=== PATIENT | female | born 1990 | race Asian ===

== ENCOUNTER 2020-10-19 15:00 | Emergency (ER) | payer OTHER, SELFPAY ==
[2020-10-19 15:25] VITALS: BP 135/92; PULSE 72; RESP 14; TEMP 36.9; O2SAT 99; BMI 24.9
--- NOTE | 2020-10-19 15:28 | DI.US.S_ITS ---
PROCEDURE: US OB <= 14 WEEKS FETUS INDICATIONS: BLEEDING 9 WEEKS OUTSIDE/PRIOR DATING DATA: Last menstrual period (LMP): 08/14/20 LMP-based estimated date of delivery (CLOVIS): 05/21/21 First dating scan (date and location): This study Estimated date of delivery (CLOVIS) from first dating scan: 06/14/21, +/-7 days. TECHNIQUE: Real-time scanning was performed of the fetus and maternal pelvic organs, with image documentation. Endovaginal scanning was also performed to better visualize the fetus and maternal ovaries. COMPARISON: None. FINDINGS: Embryo: Not seen, but a gestational sac-like structure is present, without visualized yolk sac. Measurement variability in dating: +/- 4 weeks by LMP, +/- 7 days by mean sac diameter (use before 6 weeks gestation if crown-rump length not able to be measured), +/- 5 days by crown-rump length (up to 8 weeks 6 days gestation), +/- 7 days by crown-rump length (up to 13 weeks 6 days gestation). Maternal organs: Ovaries normal for gestational status . Limited images through the kidneys demonstrate no hydronephrosis. IMPRESSION: A definite intrauterine gestation has not been documented by this study but what likely is a gestational sac is present at the upper fundal portion of the endometrial canal. Please correlate with quantitative beta HCG if clinically indicated. Alternatively, follow-up repeat 1st trimester ultrasound in 7-10 days would assist in establishing viability of the fetus if present. Dictated by: Aldair Jenkins M.D. on 10/19/2020 at 17:06 Approved by: Aldair Jenkins M.D. on 10/19/2020 at 17:09
[2020-10-19 15:57] LABS: Add Manual Diff / Slide Review NO; Basophils Absolute Auto 0 /uL (0-100); Basophils Percent Auto 0.3 % (0-2); Eosinophils Absolute Auto 100 /uL (0-450); Hematocrit 39.2 % (36-46); Lymphocytes Absolute Auto 1900 /uL (1100-4500); Lymphocytes Percent Auto 25.3 % (25-40); Mean Corpuscular HGB Conc 33.1 % (30-36); Mean Corpuscular Hemoglobin 27.1 PG (26-34); Mean Corpuscular Volume 81.7 fL (80-100); Monocytes Absolute Auto 500 /uL (0-900); Monocytes Percent Auto 7.2 % (3-14); Neutrophils Absolute Auto 4900 /uL (1500-7000); Neutrophils Percent Auto 66.2 % (50-75); Platelet Count 258 X10^3/uL (150-400); Red Cell Distribution Width 12.5 % (11.6-14.8); White Blood Cell Count 7.4 X10^3/uL (4.5-11.0)
--- NOTE | 2020-10-19 16:00 | ED.PREGNANCY ---
HPI - General Chief complaint: Vaginal Bleeding Stated complaint: 9 weeks , bleeding Time Seen by Provider: 10/19/20 15:52 Source: patient Mode of arrival: Ambulatory Limitations: no limitations History of Present Illness HPI Narrative: Patient is a 30-year-old female presenting with vaginal bleeding and cramping. She states that she is about 9 weeks . She has had some brown spotting off and on but today she had a gush of bright red and some cramping as well. She denies any significant pain now. No nausea or vomiting. No fevers. She is [place] and has yet to have her initial OB appointment MD Complaint: vaginal bleeding Pain Consistency: intermittent Patient : Yes Related Data Allergies Allergy/AdvReac Type Severity Reaction Status Date / Time No Known Drug Allergies Allergy Verified 10/19/20 15:29 Review of Systems Review of Systems Narrative: GENERAL: Denies chills, fatigue, malaise, fever, sweats, travel HEENT: Denies sinus pain, ear pain, sore throat, difficulty swallowing, neck pain RESPIRATORY: Denies dyspnea, cough, wheezing, hemoptysis, sputum. CARDIOVASCULAR: Denies chest pain, palpitations, orthopnea, edema GASTROINTESTINAL: Denies nausea, vomiting, abdominal pain, diarrhea, constipation, melena. : Denies dysuria, frequency, incontinence, hematuria, urinary retention, flank pain. STRETCHER HELPER: See HPI MUSCULOSKELETAL: Denies weakness, joint pain, or bony pain SKIN: No rash, no erythema, no pruritus NEUROLOGIC: Denies weakness, dizziness, headache, numbness, change in speech, confusion PSYCHIATRIC: No concerning psychosocial issues. 12 point review of systems is negative except for those stated above and HPI PMFSH - Past Medical History Medical history: Reports no medical history Surgical history: Reports no surgical history Patient : Yes Exam Initial Vital Signs Initial Vital Signs: Vital Signs Temperature 98.4 F 10/19/20 15:25 Pulse Rate 72 10/19/20 15:25 Respiratory Rate 14 10/19/20 15:25 Blood Pressure 135/92 H 10/19/20 15:25 Pulse Oximetry 99 10/19/20 15:25 GENERAL: Well-appearing, well-nourished and in no acute distress. HEENT: Head atraumatic,EOMI, pupils reactive, face symmetric, moist mucous membranes CARDIOVASCULAR: Regular rate and rhythm without murmurs, rubs or gallops. RESPIRATORY: Breath sounds equal bilaterally, no wheezes rales or rhonchi. ABDOMEN: Soft, nontender. Normoactive bowel sounds all 4 quadrants. No guarding or rebound. EXTREMITIES: Normal range of motion, no clubbing or edema. Neurovascularly intact NEUROLOGICAL: Alert and oriented x4.Normal gait and speech. Cranial nerves II through XII grossly intact. SKIN: Warm, dry, no laceration, no petechiae, no rashes or lesions. Course Orders Ordered: ED Orders 10/19/20 15:28 US OB <= 14 weeks fetus Stat 10/19/20 15:40 Urine Culture Stat Urine Microscopic Stat 10/19/20 15:45 ABO RH Type Stat Complete Blood Count AUTO DIFF Stat Comprehensive Metabolic Panel Stat HCG Quantitative /Beta subunit Stat Vital Signs Vital signs: Vital Signs - 8 hr 10/19/20 15:25 10/19/20 16:32 Temperature 98.4 F Pulse Rate 72 79 Respiratory Rate 14 18 Blood Pressure 135/92 H 110/70 Pulse Oximetry 99 100 MDM - OB/Uterine Contractions Lab Data Attestation: I reviewed the patient's lab results. Result diagrams: 10/19/20 15:45 10/19/20 15:45 Labs: Lab Results 10/19/20 10/19/20 10/19/20 Range/Units 15:40 15:45 15:45 WBC 7.4 (4.5-11.0) X10^3/uL RBC 4.80 (4.0-5.2) X10^6/uL Hgb 13.0 (12.0-16.0) g/dL Hct 39.2 (36-46) % MCV 81.7 (80-100) fL MCH 27.1 (26-34) PG MCHC 33.1 (30-36) % RDW 12.5 (11.6-14.8) % Plt Count 258 (150-400) X10^3/uL Neut % (Auto) 66.2 (50-75) % Lymph % (Auto) 25.3 (25-40) % Reagan % (Auto) 7.2 (3-14) % Eos % (Auto) 1.0 L (2-4) % Baso % (Auto) 0.3 (0-2) % Neut # (Auto) 4900 (8251-6708) /uL Lymph # (Auto) 1900 (7392-0071) /uL Reagan # (Auto) 500 (0-900) /uL Eos # (Auto) 100 (0-450) /uL Baso # (Auto) 0 (0-100) /uL Sodium 136 L (137-145) mmol/L Potassium 3.8 (3.4-5.1) mmol/L Chloride 104 (98-107) mmol/L Carbon Dioxide 27 (22-32) mmol/L BUN 10 (7-17) mg/dL Creatinine 0.61 (0.52-1.04) mg/dL Estimated GFR > 60.0 (>60) mL/min BUN/Creatinine Ratio 16.4 (6-22) Glucose 94 (70-100) mg/dL Calcium 9.7 (8.4-10.2) mg/dL Total Bilirubin 0.2 (0.2-1.3) mg/dL AST 37 H (14-36) IU/L ALT 61 H (<35) IU/L Alkaline Phosphatase 64 (38-126) U/L Total Protein 8.0 (6.3-8.2) g/dL Albumin 4.6 (3.5-5.0) g/dL Globulin 3.4 (1.7-4.1) g/dL Albumin/Globulin Ratio 1.4 (1.0-2.8) HCG, Quant 6486.4 mIU/mL Urine RBC 1-5/hpf (0-5/HPF) Urine WBC 5-10/hpf H (0-5/HPF) Ur Squamous Epith Cells 1-5 /hpf (0-5/HPF) Amorphous Sediment 2+ Urine Bacteria Few (2-10) H (None) Urine Mucus 1+ H (Negative) Ur Culture Indicated? Specimen cultured Blood Type 10/19/20 Range/Units 15:45 WBC (4.5-11.0) X10^3/uL RBC (4.0-5.2) X10^6/uL Hgb (12.0-16.0) g/dL Hct (36-46) % MCV (80-100) fL MCH (26-34) PG MCHC (30-36) % RDW (11.6-14.8) % Plt Count (150-400) X10^3/uL Neut % (Auto) (50-75) % Lymph % (Auto) (25-40) % Reagan % (Auto) (3-14) % Eos % (Auto) (2-4) % Baso % (Auto) (0-2) % Neut # (Auto) (4004-4316) /uL Lymph # (Auto) (6256-5166) /uL Reagan # (Auto) (0-900) /uL Eos # (Auto) (0-450) /uL Baso # (Auto) (0-100) /uL Sodium (137-145) mmol/L Potassium (3.4-5.1) mmol/L Chloride (98-107) mmol/L Carbon Dioxide (22-32) mmol/L BUN (7-17) mg/dL Creatinine (0.52-1.04) mg/dL Estimated GFR (>60) mL/min BUN/Creatinine Ratio (6-22) Glucose (70-100) mg/dL Calcium (8.4-10.2) mg/dL Total Bilirubin (0.2-1.3) mg/dL AST (14-36) IU/L ALT (<35) IU/L Alkaline Phosphatase (38-126) U/L Total Protein (6.3-8.2) g/dL Albumin (3.5-5.0) g/dL Globulin (1.7-4.1) g/dL Albumin/Globulin Ratio (1.0-2.8) HCG, Quant mIU/mL Urine RBC (0-5/HPF) Urine WBC (0-5/HPF) Ur Squamous Epith Cells (0-5/HPF) Amorphous Sediment Urine Bacteria (None) Urine Mucus (Negative) Ur Culture Indicated? Blood Type A Positive Urine Dip Bedside Urine Glucose Negative Bedside Urine Bilirubin - Negative Bedside Urine Ketone - Negative Urine Specific [place] 1.025 Bedside Urine Occult Blood +++ Bedside Urine pH 6.5 Bedside Urine Protein - Negative Bedside Urine Urobilinogen - Negative Bedside Urine Nitrite - Negative Bedside Urine Leukocytes ++ 125 Esterase Imaging Data US - STRETCHER HELPER: Radiologist's Impression: PROCEDURE: US OB <= 14 WEEKS FETUS INDICATIONS: BLEEDING 9 WEEKS OUTSIDE/PRIOR DATING DATA: Last menstrual period (LMP): 08/14/20 LMP-based estimated date of delivery (CLOVIS): 05/21/21 First dating scan (date and location): This study Estimated date of delivery (CLOVIS) from first dating scan: 06/14/21, +/-7 days. TECHNIQUE: Real-time scanning was performed of the fetus and maternal pelvic organs, with image documentation. Endovaginal scanning was also performed to better visualize the fetus and maternal ovaries. COMPARISON: None. FINDINGS: Embryo: Not seen, but a gestational sac-like structure is present, without visualized yolk sac. Measurement variability in dating: +/- 4 weeks by LMP, +/- 7 days by mean sac diameter (use before 6 weeks gestation if crown-rump length not able to be measured), +/- 5 days by crown-rump length (up to 8 weeks 6 days gestation), +/- 7 days by crown-rump length (up to 13 weeks 6 days gestation). Maternal organs: Ovaries normal for gestational status . Limited images through the kidneys demonstrate no hydronephrosis. IMPRESSION: A definite intrauterine gestation has not been documented by this study but what likely is a gestational sac is present at the upper fundal portion of the endometrial canal. Please correlate with quantitative beta HCG if clinically indicated. Alternatively, follow-up repeat 1st trimester ultrasound in 7-10 days would assist in establishing viability of the fetus if present. Dictated by: Aldair Jenkins M.D. on 10/19/2020 at 17:06 MDM Narrative Medical decision making narrative: Patient thinks she is 9 weeks last menstrual period was August 14. HCG is 6400 and gestational sac is clear present in the upper final portion of the endometrial canal but no yolk sac or her feet is detected which I would expect at 9 weeks. However patient states that her menstrual cycles are irregular so it is possible she is not as far along as she thinks. Nonetheless I strongly recommend follow-up in hCG and repeat [place] Discharge Plan Departure Patient Disposition: Home Clinical Impression: Threatened Instructions: DI for Threatened Activity Restrictions/Additional Instructions: HCG= 6486 *You have been diagnosed with threatened *What to do: Please have your hCG rechecked in 48 hours. It should be increasing. There is a chance that you are miscarrying. Her ultrasound did not show all what it needed to today. *Continue to take medications as directed Tylenol 650 mg every 4-6 hours if needed for [id number] pain *Follow up with your primary care provider in 2-3 days *Return to ER if you should have increasing pain, vaginal bleeding or any new, worsening or concerning symptoms Referrals: [facility] [Provider Group]
[2020-10-19 16:15] LABS: Alanine Aminotransferase 61 IU/L (<35); Albumin 4.6 g/dL (3.5-5.0); Albumin Globulin Ratio 1.4 (1.0-2.8); Alkaline Phosphatase 64 U/L (38-126); Aspartate Aminotransferase 37 IU/L (14-36); BUN Creatinine Ratio 16.4 (6-22); Bilirubin Total 0.2 mg/dL (0.2-1.3); Blood Urea Nitrogen 10 mg/dL (7-17); Calcium 9.7 mg/dL (8.4-10.2); Carbon Dioxide 27 mmol/L (22-32); Chloride 104 mmol/L (98-107); Estimated Glomerular Filt Rate > 60.0 mL/min (>60); Globulin 3.4 g/dL (1.7-4.1); Glucose 94 mg/dL (70-100); HEMOLYSIS < 15 (0-50); Potassium 3.8 mmol/L (3.4-5.1); Sodium 136 mmol/L (137-145)
[2020-10-19 16:24] LABS: Amorphous Sediment Urine 2+; Bacteria Urine Few (2-10); Culture Indicated Urine Specimen Cultured; Mucus Urine 1+ (Negative); RBC Urine 1-5/HPF (0-5/HPF); Squamous Epithelial Cell Urine 1-5 /HPF (0-5/HPF); WBC Urine 5-10/HPF (0-5/HPF)
[2020-10-19 16:32] VITALS: BP 110/70; PULSE 79; RESP 18; O2SAT 100
[2020-10-19 16:32] LABS: HCG Quantitative /Beta subunit 6486.4 mIU/mL
== END 2020-10-19 17:41 | disposition home or self-care (01) ==
PROVIDERS: Emergency Provider Emergency Medicine
DX: O20.0 Threatened abortion (principal); Z3A.09 9 weeks gestation of pregnancy
CPT/HCPCS: 36415; 76801; 76817; 80053; 81003; 81015; 84702; 85025; 86900; 86901; 87086; 99283; 99284

== ENCOUNTER 2020-10-21 11:05 | Emergency (ER) | payer OTHER, SELFPAY ==
[2020-10-21 11:11] VITALS: BP 129/78; PULSE 86; RESP 16; TEMP 36.6; O2SAT 100; BMI 24.9
[2020-10-21 12:14] LABS: Bacteria Urine None Seen
[2020-10-21 12:17] LABS: HCG Quantitative /Beta subunit 6250.9 mIU/mL
[2020-10-21 12:28] LABS: WBC Urine 0-1/HPF (0-5/HPF)
[2020-10-21 12:34] LABS: Culture Indicated Urine Cult Not Indicated; RBC Urine 1-5/HPF (0-5/HPF); Squamous Epithelial Cell Urine 1-5 /HPF (0-5/HPF)
[2020-10-21 13:11] VITALS: BP 120/84; PULSE 89; RESP 16; TEMP 37.2; O2SAT 98
--- NOTE | 2020-10-21 14:30 | ED_ITS ---
HPI - Recheck/Abnormal Lab/Rx <RENZO Rivera - Last Filed: 10/21/20 14:49> General Chief Complaint: Recheck/Abnormal Lab/Rx Stated Complaint: and advised to have HCG checked Time Seen by Provider: 10/21/20 11:07 Source: patient and family Mode of arrival: Ambulatory Limitations: no limitations History of Present Illness HPI narrative: The patient is a 30-year-old female nonsmoker with history of threatened who presents with her for chief complaint of wanting to have her lab work checked. She was seen and evaluated at this facility on 10/19/2020 AG 1 P 0 approximately 9 weeks who presents with a chief complaint of a gush of bright red blood. She had an ultrasound which was concerning for a lack of definite intrauterine gestation, likely a gestational sac present at the upper fundal portion of the endometrial canal. She was instructed to have a repeat beta-hCG done in 48 hours, which he did not have a primary care provider or place to do this so she came back to the emergency department. She states that she is having slight constant ?trickle of bleeding, fills a panty liner per day. Related Data Allergies Allergy/AdvReac Type Severity Reaction Status Date / Time No Known Drug Allergies Allergy Verified 10/21/20 11:13 Review of Systems <RENZO Rivera - Last Filed: 10/21/20 14:49> Review of Systems Narrative: GENERAL: Denies chills, fatigue, malaise, fever, sweats. HEENT: Denies sinus pain, ear pain, sore throat, difficulty swallowing, dizziness. RESPIRATORY: Denies dyspnea, cough, wheezing, hemoptysis, sputum. CARDIOVASCULAR: Denies chest pain, palpitations, orthopnea, edema, GASTROINTESTINAL: See HPI : See HPI MUSCULOSKELETAL: denies weakness, joint pain, or bony pain SKIN: Denies rash, skin lesions, or other NEUROLOGIC: Denies weakness, headache, numbness, change in speech, confusion, seizures, incoordination. PSYCHIATRIC: No concerning psychosocial issues. 12 point review of systems is negative except for those stated above Patient History <RENZO Rivera - Last Filed: 10/21/20 14:49> Social History Smoking Status: Unknown if ever smoked Smoking Status: Unknown if ever smoked alcohol intake frequency: holidays/special occasions only Substance Use Type: does not use Exam <RENZO Rivera - Last Filed: 10/21/20 14:49> Narrative Exam Narrative: GENERAL: This is a well-nourished, well-developed patient, in no acute distress with at bedside HEAD: Atraumatic. Normocephalic. No temporal or scalp tenderness. EYES: Pupils equal round and reactive. Extraocular motions intact. No scleral icterus. No injection or drainage. ENT: Nose without bleeding, purulent drainage or septal hematoma. Wearing a mask. Airway patent. NECK: Trachea midline. No JVD or lymphadenopathy. Supple, nontender, no meningeal signs. CARDIOVASCULAR: Regular rate and rhythm RESPIRATORY: Clear to auscultation. Breath sounds equal bilaterally. No wheezes, rales, or rhonchi. No cough. No increased respiratory effort. No accessory muscle use. GASTROINTESTINAL: Abdomen soft, non-tender, nondistended. No hepato- splenomegaly, or palpable masses. No guarding. Active bowel sounds all 4 quadrants EXTREMITIES: No clubbing, cyanosis, or edema. No joint tenderness, effusion, or edema noted. BACK: Nontender without deformity or crepitance. No flank tenderness. NEURO: AOx3. SKIN: No rash or erythema. Initial Vital Signs Initial Vital Signs: Vital Signs Temperature 97.8 F 10/21/20 11:11 Pulse Rate 86 10/21/20 11:11 Respiratory Rate 16 10/21/20 11:11 Blood Pressure 129/78 10/21/20 11:11 Pulse Oximetry 100 10/21/20 11:11 <Stephanie Newman MD - Last Filed: 10/21/20 15:33> Initial Vital Signs Initial Vital Signs: Vital Signs Temperature 97.8 F 10/21/20 11:11 Pulse Rate 86 10/21/20 11:11 Respiratory Rate 16 10/21/20 11:11 Blood Pressure 129/78 10/21/20 11:11 Pulse Oximetry 100 10/21/20 11:11 Scores <RENZO Rivera - Last Filed: 10/21/20 14:49> GCS Bulmaro coma scale eye opening: Spontaneous Bulmaro coma scale verbal response: Orientated Bulmaro coma scale motor response: Obey commands [place] coma scale total score: 15 Course <ERWIN Rivera- - Last Filed: 10/21/20 14:49> Orders Ordered: ED Orders 10/21/20 11:35 Beta HCG, Quant [HCG Quantitative /Beta subunit] Stat 10/21/20 12:01 Urine Microscopic Stat Vital Signs Vital signs: Vital Signs - 8 hr 10/21/20 11:11 10/21/20 13:11 Temperature 97.8 F 98.9 F Pulse Rate 86 89 Respiratory Rate 16 16 Blood Pressure 129/78 120/84 Pulse Oximetry 100 98 <Stephanie Newman MD - Last Filed: 10/21/20 15:33> Orders Ordered: ED Orders 10/21/20 11:35 Beta HCG, Quant [HCG Quantitative /Beta subunit] Stat 10/21/20 12:01 Urine Microscopic Stat Vital Signs Vital signs: Vital Signs - 8 hr 10/21/20 11:11 10/21/20 13:11 Temperature 97.8 F 98.9 F Pulse Rate 86 89 Respiratory Rate 16 16 Blood Pressure 129/78 120/84 Pulse Oximetry 100 98 MDM - Recheck/Abnormal Lab/Rx <MARGOT Rivera - Last Filed: 10/21/20 14:49> Lab Data Labs: Lab Results 10/21/20 10/21/20 Range/Units 11:35 12:01 HCG, Quant 6250.9 mIU/mL Urine RBC 1-5/hpf (0-5/HPF) Urine WBC 0-1/hpf (0-5/HPF) Ur Squamous Epith Cells 1-5 /hpf (0-5/HPF) Urine Bacteria None seen (None) Ur Culture Indicated? Cult not indicated Urine Dip Bedside Urine Glucose Negative Bedside Urine Bilirubin - Negative Bedside Urine Ketone - Negative Urine Specific [place] 1.015 Bedside Urine Occult Blood +++ Bedside Urine pH 6.0 Bedside Urine Protein - Negative Bedside Urine Urobilinogen - Negative Bedside Urine Nitrite - Negative Bedside Urine Leukocytes - Negative Esterase [facility] Narrative Medical decision making narrative: The patient is a 30-year-old female who presents requesting a repeat beta hCG as per recommendations 2 days ago. She does not appear systemically ill, does not have any pain throughout her stay in the ER or since her previous discharge. Her beta-hCG has slightly decreased from her lab 2 days ago. Discussed the case with Dr. Newman who refused her ultrasound from a few days ago. The patient is in no acute pain, not bleeding significantly. Discussed with the patient that this is not a viable at this time, especially given her decreasing beta HCG. We discussed the possibility of a blighted ovum, that is thought to be more of a possibility exam a decidual reaction as the patient is pain-free and in no acute distress. We discussed the importance of follow-up with her primary care provider in the next few days for further evaluation, strict return precautions the emergency department as per Dr newman's recommendations including but not limited to severe bleeding with lightheadedness, abdominal pain etcetera. Patient and state understanding of conversation, have no questions or concerns and are appreciative of the care today. They state understanding return precautions as well as follow-up care. <Stephanie Newman MD - Last Filed: 10/21/20 15:33> Lab Data Labs: Lab Results 10/21/20 10/21/20 Range/Units 11:35 12:01 HCG, Quant 6250.9 mIU/mL Urine RBC 1-5/hpf (0-5/HPF) Urine WBC 0-1/hpf (0-5/HPF) Ur Squamous Epith Cells 1-5 /hpf (0-5/HPF) Urine Bacteria None seen (None) Ur Culture Indicated? Cult not indicated Urine Dip Bedside Urine Glucose Negative Bedside Urine Bilirubin - Negative Bedside Urine Ketone - Negative Urine Specific [place] 1.015 Bedside Urine Occult Blood +++ Bedside Urine pH 6.0 Bedside Urine Protein - Negative Bedside Urine Urobilinogen - Negative Bedside Urine Nitrite - Negative Bedside Urine Leukocytes - Negative Esterase Discharge Plan Departure Patient Disposition: Home Clinical Impression: Miscarriage Instructions: Dealing With Miscarriage, DI for Miscarriage Activity Restrictions/Additional Instructions: Thank you for trusting us with your care today. As discussed, your hormone is decreasing. Your beta hCG went from a 6486.4 to 6250.9 over less than 48 hours. This correlates with a miscarriage. As discussed, please follow-up with primary care provider on Friday. Please come back to the emergency department for any acute concerns. This includes passing out, abdominal pain, fever with abdominal pain etcetera Referrals: [facility] [Provider Group] <Stephanie Newman MD - Last Filed: 10/21/20 15:33> Cosign ED Attending Cosignature Attestation: I was immediately available in the department for consultation throughout this patient's visit. I agree with documentation as above. Stephanie Newman MD
== END 2020-10-21 13:11 | disposition home or self-care (01) ==
PROVIDERS: Emergency Medicine; Emergency Provider Nurse Practitioner Family
DX: O03.9 Complete or unspecified spontaneous abortion without complication (principal)
CPT/HCPCS: 36415; 81003; 81015; 84702; 99283

== ENCOUNTER → 2021-01-04 10:36 | Outpatient (CLI) | payer OTHER, SELFPAY ==
[2021-01-04 11:57] LABS: HCG Quantitative /Beta subunit 997.4 mIU/mL
== END ==
PROVIDERS: Referring Provider Family Medicine; Visit Provider Family Medicine
DX: Z34.81 Encounter for supervision of other normal pregnancy, first trimester (principal)
CPT/HCPCS: 36415; 84702

== ENCOUNTER → 2021-01-06 10:17 | Outpatient (CLI) | payer OTHER, SELFPAY ==
[2021-01-06 13:13] LABS: HCG Quantitative /Beta subunit 1922.2 mIU/mL
== END ==
PROVIDERS: PCP Family Medicine; Referring Provider Family Medicine; Visit Provider Family Medicine
DX: Z34.81 Encounter for supervision of other normal pregnancy, first trimester (principal)
CPT/HCPCS: 36415; 84702

== ENCOUNTER → 2021-01-19 15:41 | Outpatient (CLI) | payer OTHER, SELFPAY ==
[2021-01-19 16:43] LABS: Add Manual Diff / Slide Review NO; Basophils Absolute Auto 0 /uL (0-100); Basophils Percent Auto 0.2 % (0-2); Eosinophils Absolute Auto 100 /uL (0-450); Eosinophils Percent Auto 0.6 % (2-4); Hematocrit 38.4 % (36-46); Hemoglobin 12.9 g/dL (12.0-16.0); Lymphocytes Absolute Auto 1900 /uL (1100-4500); Lymphocytes Percent Auto 20.4 % (25-40); Mean Corpuscular HGB Conc 33.5 % (30-36); Mean Corpuscular Hemoglobin 27.3 PG (26-34); Mean Corpuscular Volume 81.3 fL (80-100); Monocytes Absolute Auto 600 /uL (0-900); Monocytes Percent Auto 6.2 % (3-14); Neutrophils Absolute Auto 6700 /uL (1500-7000); Neutrophils Percent Auto 72.6 % (50-75); Platelet Count 249 X10^3/uL (150-400); Red Blood Cell Count 4.72 X10^6/uL (4.0-5.2); Red Cell Distribution Width 12.6 % (11.6-14.8); White Blood Cell Count 9.3 X10^3/uL (4.5-11.0)
[2021-01-19 16:51] LABS: Appearance Urine UA CLOUDY; Bilirubin Urine UA NEGATIVE (NEGATIVE); Color Urine UA YELLOW; Glucose Urine UA NEGATIVE (Negative); Ketones Urine UA NEGATIVE (NEGATIVE); Leukocyte Esterase Urine UA 3+ (NEGATIVE); Nitrite Urine UA NEGATIVE (Negative); Occult Blood Urine UA TRACE-LYSED (Negative); Protein Urine UA NEGATIVE (Negative); Urobilinogen Urine UA 0.2 E.U./dL (0.2)
[2021-01-19 17:27] LABS: pH Urine UA 6.5 (4.5-8.0)
[2021-01-19 17:32] LABS: Amorphous Sediment Urine 3+; Bacteria Urine Moderate (10-30); Culture Indicated Urine Cult Not Indicated; RBC Urine 5-10/HPF (0-5/HPF); Renal Epithelial Cells Urine 1-5/HPF (0-1/HPF); Squamous Epithelial Cell Urine 10-30 /HPF (0-5/HPF); WBC Urine 10-30/HPF (0-5/HPF)
[2021-01-19 18:11] LABS: Hepatitis B Surface Antigen NEGATIVE s/c (NEGATIVE)
[2021-01-19 18:29] LABS: HIV 1 & 2 Ab/Ag 4th Gen Combo NEGATIVE (NEGATIVE); Hep C Virus Ab w/Reflex Quant NEGATIVE s/c (NEGATIVE)
[2021-01-20 07:08] LABS: RPR Screen Non Reactive (Non Reactive)
[2021-01-20 08:08] LABS: Varicella IgG Antibody 3567 index (Immune >165)
== END ==
PROVIDERS: PCP Family Medicine; Referring Provider Family Medicine; Visit Provider Family Medicine
DX: Z34.81 Encounter for supervision of other normal pregnancy, first trimester (principal)
CPT/HCPCS: 36415; 80055; 81003; 81015; 86787; 86803; 86850; 86900; 86901; 87086; 87389

== ENCOUNTER 2021-01-24 01:06 | Emergency (ER) | payer OTHER, SELFPAY ==
--- NOTE | 2021-01-24 01:13 | DI.US.S_ITS ---
PROCEDURE: US OB <= 14 WEEKS FETUS INDICATIONS: BLEEDING OUTSIDE/PRIOR DATING DATA: Last menstrual period (LMP): Not available. LMP-based estimated date of delivery (CLOVIS): Not available. First dating scan (date and location): This study. Estimated date of delivery (CLOVIS) from first dating scan: 09/03/21. TECHNIQUE: Real-time scanning was performed of the fetus and maternal pelvic organs, with image documentation. Endovaginal scanning was also performed to better visualize the fetus and maternal ovaries. COMPARISON: [facility], , OB <= 14 WEEKS FETUS, 10/19/2020, 15:53. FINDINGS: Embryo: Rudy-rump length 1.8 cm correlates with a gestational age estimate of 8 weeks 2 days, +/-5 days. cardiac activity is observed at 168 beats per minute. There is a small subchorionic hemorrhage 1.7 x 1.9 x 2.4 cm adjacent to the gestational sac. Measurement variability in dating: +/- 4 weeks by LMP, +/- 7 days by mean sac diameter (use before 6 weeks gestation if crown-rump length not able to be measured), +/- 5 days by crown-rump length (up to 8 weeks 6 days gestation), +/- 7 days by crown-rump length (up to 13 weeks 6 days gestation). Maternal organs: Ovaries normal considering gestational status . IMPRESSION: Single living intrauterine gestation with delivery date projected to be centered on 09/03/21. Small adjacent subchorionic hemorrhage incidentally noted. Dictated by: Aldair Jenkins M.D. on 01/24/2021 at 8:18 Approved by: Aldair Jenkins M.D. on 01/24/2021 at 8:19
--- NOTE | 2021-01-24 01:14 | ED.GENADULT ---
HPI - General Adult General Chief complaint: Vaginal Bleeding Stated complaint: 7 weeks , bleeding Time Seen by Provider: 01/24/21 01:10 Source: patient Mode of arrival: Ambulatory Limitations: no limitations History of Present Illness HPI narrative: Patient is a Rh positive 30-year-old at approximately 7 weeks EGA with a known IUP noted in her OB providers note from a bedside ultrasound here for evaluation of vaginal bleeding. She states the symptoms started approximately 1 hour ago. She is not having any pain. No urinary symptoms. No change of bowel habits. No rashes. Related Data Home Medications Medication Instructions Recorded Confirmed acetaminophen 325 mg capsule 650 mg PO Q6H PRN 01/09/21 01/09/21 acyclovir 400 mg tablet 400 mg PO .PRN tab 01/09/21 01/09/21 doxylamine succinate 25 mg tablet 12.5 mg PO BEDTIME PRN tab 01/09/21 01/09/21 prenat.vits,chelita,jcb-abdq-cjcoo 1 tab PO DAILY 01/09/21 01/09/21 Allergies Allergy/AdvReac Type Severity Reaction Status Date / Time No Known Drug Allergies Allergy Verified 01/09/21 12:08 Review of Systems Constitutional Constitutional: Denies fatigue, Denies fever(s) and Denies headache(s) ENT Ears, Nose, Mouth, and Throat: Denies headache(s) Cardiovascular Cardiovascular: Denies chest pain and Denies dyspnea Respiratory Respiratory: Denies dyspnea Gastrointestinal Gastrointestinal: Denies abdominal pain, Denies nausea and Denies vomiting Genitourinary Comments: Vaginal bleeding Musculoskeletal Musculoskeletal: Denies arthralgias and Denies myalgias Integumentary/Breasts Skin/Breast: Denies rash Neurologic Neurologic: Denies behavioral changes and Denies headache(s) Psychiatric Psychiatric: Denies behavioral changes Endocrine Endocrine: Denies fatigue Hematologic/Lymphatic On Anticoagulants: No Allergic/Immunologic Allergic/Immunologic: Denies urticaria Patient History Medical History Acne Frequent headaches (~11/2020) Genital herpes (~2013) SAB (spontaneous ) (~10/21/20) Surgical History (Updated 01/09/21 @ 12:46 by Kelli Hairston RN) [place] teeth extracted (~2015) Family History (Updated 01/09/21 @ 12:44 by Kelli Hairston RN) Mother Diabetes mellitus Hypertension Hyperlipidemia Type 2 diabetes mellitus Acute rheumatoid arthritis Father Hypertension CVA (cerebral vascular accident) Grandmother No problems noted. 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 needs: No Smoking Status: Never smoker second hand exposure: No alcohol intake: former (pre- : weekends usually/only) substance use type: does not use Smoking Status: Never smoker alcohol intake frequency: holidays/special occasions only Substance Use Type: does not use Exam Initial Vital Signs Initial Vital Signs: Vital Signs Temperature 98.3 F 01/24/21 01:34 Pulse Rate 88 01/24/21 01:34 Respiratory Rate 20 01/24/21 01:34 Blood Pressure 92/56 L 01/24/21 01:34 Pulse Oximetry 98 01/24/21 01:34 Const General: cooperative and comfortable Limitations: mental status not altered HENMT Head: normal to inspection and normocephalic Resp Effort & Inspection: normal respiratory effort Cardio Rate: regular rate GI Inspection: non-distended Skin Lesions: no lesions Rashes: no rashes Neuro General: patient alert, patient awake and patient oriented x3 Cognition: normal cognition Speech: speech normal Extrem General: normal to inspection Psych Appearance: grossly normal and well kempt Course Orders Ordered: ED Orders 01/24/21 01:13 US OB <= 14 weeks fetus Stat 01/24/21 01:20 HCG Quantitative /Beta subunit Stat Vital Signs Vital signs: Vital Signs - 8 hr 01/24/21 01:34 Temperature 98.3 F Pulse Rate 88 Respiratory Rate 20 Blood Pressure 92/56 L Pulse Oximetry 98 Medical Decision Making Medical Records Medical records reviewed: Yes I reviewed the patient's medical records. Lab Data Lab results reviewed: Yes I reviewed the patient's lab results. Labs: Urine Dip Bedside Urine Glucose Negative Bedside Urine Bilirubin - Negative Bedside Urine Ketone - Negative Urine Specific [place] 1.005 Bedside Urine Occult Blood ++ Bedside Urine pH 6.5 Bedside Urine Protein - Negative Bedside Urine Urobilinogen - Negative Bedside Urine Nitrite - Negative Bedside Urine Leukocytes - Negative Esterase Point of care testing: Urine Dip Bedside Urine Glucose Negative Bedside Urine Bilirubin - Negative Bedside Urine Ketone - Negative Urine Specific [place] 1.005 Bedside Urine Occult Blood ++ Bedside Urine pH 6.5 Bedside Urine Protein - Negative Bedside Urine Urobilinogen - Negative Bedside Urine Nitrite - Negative Bedside Urine Leukocytes - Negative Esterase Imaging Data US - OB: Radiologist's Impression: Single live intrauterine with an estimated gestational age of 8 weeks 2 days. Inferior subchorionic hemorrhage. MDM Narrative Medical decision making narrative: Rh positive. Patient does have an IUP noted on ultrasound today. Patient is stable. The ultrasound does show subchorionic hemorrhage. Patient was given the information for the ultrasound. She was given return precautions and follow-up instructions. She expressed understanding and agreement. Discharge Plan Departure Patient Disposition: Home Clinical Impression: Miscarriage, threatened, early Instructions: DI for Vaginal Bleeding During Activity Restrictions/Additional Instructions: Your ultrasound today shows a single intrauterine with a fetus that has a heart rate of 168 beats per minute. This is all completely normal. Recommend that you keep all of your scheduled medical/OB appointments. Return to the emergency department for any new or worsening symptoms. Prescriptions: No Action prenat.vits,chelita,jsr-yqcc-mcvtg Tablet 1 tab PO DAILY RF: 0 acetaminophen [Tylenol] 325 mg capsule 650 mg PO Q6H PRNRF: 0 Unisom (doxylamine) 25 mg tablet 12.5 mg PO BEDTIME PRNRF: 0 acyclovir 400 mg tablet 400 mg PO .PRN RF: 0 Referrals: Anastasiia Roberto MD [Primary Care Provider] -
[2021-01-24 01:34] VITALS: BP 92/56; PULSE 88; RESP 20; TEMP 36.8; O2SAT 98; BMI 25.2
[2021-01-24 02:23] LABS: HCG Quantitative /Beta subunit 58984 mIU/mL
== END 2021-01-24 02:30 | disposition home or self-care (01) ==
PROVIDERS: Emergency Provider Emergency Medicine; PCP Family Medicine
DX: O20.0 Threatened abortion (principal); Z3A.01 Less than 8 weeks gestation of pregnancy
CPT/HCPCS: 76801; 76817; 81003; 84702; 99281; 99283

== ENCOUNTER → 2021-02-22 16:17 | Outpatient (CLI) | payer OTHER, SELFPAY | PROVIDERS: PCP Family Medicine; Referring Provider Family Medicine; Visit Provider Family Medicine | DX: Z34.01 Encounter for supervision of normal first pregnancy, first trimester (principal); Z3A.10 10 weeks gestation of pregnancy | CPT/HCPCS: 36415; 81420 ==

== ENCOUNTER → 2021-04-20 13:08 | Outpatient (CLI) | payer OTHER, SELFPAY ==
--- NOTE | 2021-04-20 13:09 | DI.US.S_ITS ---
PROCEDURE: US OB >= 14 WEEKS FETUS INDICATIONS: ANATOMY OUTSIDE/PRIOR DATING DATA: Last menstrual period (LMP): Unknown . LMP-based estimated date of delivery (CLOVIS): Not applicable . First dating scan (date and location): 01/05/2021 [facility] . Estimated date of delivery (CLOVIS) from first dating scan: 09/03/2021 TECHNIQUE: Real-time scanning was performed of the fetus, with image documentation and biometric measurements. COMPARISON: 10/19/2020. 01/24/2021.. FINDINGS: General: A single living intrauterine gestation is present. Presentation: Variable. Placenta: Placental position is posterior , without previa. Amniotic fluid index: 13.3 cm, normal range is 5-24 cm. heart rate: 147 beats per minute. Maternal cervical canal: 3.2 cm long. Normal lower limit is 2.5 cm. biometrics: Biparietal diameter: 4.8 cm. 20 weeks 3 days Head circumference: 17.8 cm. 20 weeks 2 days Abdominal circumference: 15.0 cm. 20 weeks 2 days Femur length: 3.2 cm. 19 weeks 6 days Estimated gestational age from initial scan: not applicable. Composite gestational age from present scan: 20 weeks 2 days Estimated weight and percentile: 334 grams. 23rd percentile. Measurement variability for biometric dating: +/- 7 days from 14 weeks to 15 weeks 6 days gestation, +/- 10 days from 16 weeks to 21 weeks 6 days gestation, +/- 2 weeks from 22 weeks to 27 weeks 6 days gestation, +/- 3 weeks for 28 weeks gestation or later. weight reference: 4500 g or EFW >90/95% is considered macrosomia or large for gestational age. EFW <10% is small for gestational age. EFW 5% or less is considered intra-uterine growth restriction. Anatomic survey: Neuro: Ventricles are non-dilated at less than 10 mm. Cisterna magna is normal at 3-11 mm. Cerebellum is normal in size and morphology. Nuchal skin fold: Normal at less than 6 mm between 14-21 weeks gestational age. Face: Nose and lips, facial profile are normal. Spine: No evidence for spina bifida. Heart: 4-chambered heart is present, with normal ventricular outflow tracts. Diaphragm: Diaphragm is intact. Stomach: A hyperechoic area seen within the abdomen inferior to the stomach and superior to the kidneys. Kidneys: No hydronephrosis. Normal is less than 5 mm in 2nd trimester, less than 7 mm in 3rd trimester. Cord: 3-vessel cord has orthotopic insertion. Bladder: Normal in size. Extremities: All 4 extremities identified. IMPRESSION: 1. Live intrauterine with a composite gestational age from present scan of 20 weeks 2 days. 2. EFW 334 grams. 23rd percentile. 3. Echogenic bowel is identified. This can be associated with aneuploidy, intra-amniotic bleeding, cystic fibrosis, CMV. Refer to tertiary care center for junior high school principal workup should be considered. All other anatomy is normal. Dictated by: Angel Bullock M.D. on 04/20/2021 at 16:08 Approved by: Angel Bullock M.D. on 04/20/2021 at 16:15
== END ==
PROVIDERS: PCP Family Medicine; Referring Provider Family Medicine; Visit Provider Family Medicine
DX: Z34.82 Encounter for supervision of other normal pregnancy, second trimester (principal); Z3A.20 20 weeks gestation of pregnancy
CPT/HCPCS: 76811

== ENCOUNTER → 2021-06-22 08:01 | Outpatient (CLI) | payer OTHER, SELFPAY ==
[2021-06-22 10:04] LABS: Add Manual Diff / Slide Review NO; Basophils Absolute Auto 0 /uL (0-100); Basophils Percent Auto 0.2 % (0-2); Eosinophils Absolute Auto 0 /uL (0-450); Eosinophils Percent Auto 0.7 % (2-4); Hemoglobin 12.2 g/dL (12.0-16.0); Lymphocytes Absolute Auto 1200 /uL (1100-4500); Lymphocytes Percent Auto 16.2 % (25-40); Mean Corpuscular HGB Conc 33.9 % (30-36); Mean Corpuscular Hemoglobin 28.3 PG (26-34); Mean Corpuscular Volume 83.5 fL (80-100); Monocytes Absolute Auto 300 /uL (0-900); Monocytes Percent Auto 4.2 % (3-14); Neutrophils Absolute Auto 5700 /uL (1500-7000); Neutrophils Percent Auto 78.7 % (50-75); Platelet Count 177 X10^3/uL (150-400); Red Blood Cell Count 4.31 X10^6/uL (4.0-5.2); Red Cell Distribution Width 13.4 % (11.6-14.8); White Blood Cell Count 7.2 X10^3/uL (4.5-11.0)
[2021-06-22 10:11] LABS: GTT (PREG) 1 Hour PP 50gm Dose 167 mg/dL (76-139)
== END ==
PROVIDERS: PCP Family Medicine; Referring Provider Family Medicine; Visit Provider Family Medicine
DX: Z34.90 Encounter for supervision of normal pregnancy, unspecified, unspecified trimester (principal)
CPT/HCPCS: 36415; 82950; 85025

== ENCOUNTER → 2021-06-29 07:05 | Outpatient (CLI) | payer OTHER, SELFPAY ==
[2021-06-29 08:56] LABS: Glucose Fasting Gestational 84 mg/dL (76-95)
[2021-06-29 10:27] LABS: Glucose Tol Interp,Gestational INTERPRETATION
[2021-06-29 11:00] LABS: Glucose 1 Hour Gest 183 mg/dL (76-180)
[2021-06-29 11:34] LABS: Glucose 3 Hour Gest 158 mg/dL (76-140)
[2021-06-29 11:37] LABS: Glucose 2 Hour Gest 103 mg/dL (76-155)
== END ==
PROVIDERS: PCP Family Medicine; Referring Provider Family Medicine; Visit Provider Family Medicine
DX: Z34.90 Encounter for supervision of normal pregnancy, unspecified, unspecified trimester (principal)
CPT/HCPCS: 36415; 82951; 82952

== ENCOUNTER → 2021-07-10 15:32 | Outpatient (CLI) | payer OTHER, SELFPAY ==
--- NOTE | 2021-07-11 10:18 | DIAB.GDA ---
Initial Gestational Diabetes Assessment Name: Steph Pham Date: 07/10/21 Time: 335-515p Dx: Gestational Diabetes Provider: Giuseppe CLOVIS: 09/06/21 Weeks: 31-32 Stehp presents today newly dx with GDM. Reports FH of DM with her maternal aunts, uncles, and grandmother. Reports aunt of diabetes related complications in 2018. Steph experienced a loss this past October. Her is currently deployed, she and her are both in the [place], and she has two dogs. Her [id number] plans to visit her in August (she is a retired OB nurse), and her mother visits weekly from [place]. Reports baseline knowledge about diabetes physiology and is checking BG as described below (SMBG). States she loves sweets, ie doughnuts, ice cream. Enjoys traditional north k[place] foods. 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 Recently increased to 1c after our phone conversation, which seems to be working well. Diet recall indicates low vegetable intake and previous to diagnosis some high carb dinners, ie 3c pasta or lasagna (90-135g CHO), rice with japanese yogurt (75g CHO). Also reports dessert in evening in small portions (20g CHO). States she would like to know more about nutrition and how GDm can impact her baby. She is having a boy. Anthropometrics: Ht: 64 Wt: 169# Prepregnancy wt: 150# Physical Activity: Limited by weather. When not raining, walks dogs for 60 mins. Difficulty thinking of physical activity she is open to during rainy weather. Self-Monitoring Blood Glucose: All readings within goal except one elevation after lunch when she had a 1/2 doughnut before her usual lunch. All pc readings are 2 hour, which is acceptable, however she is finding it difficult to stay awake for dinner pc reading. Asked that she discuss changing to 1 hour after dinner, as this is also acceptable, with her provider. Provider her the reccs on 1 hr (<140 mg/dL) and 2 hr (<120 mg/dL). If provider agrees, she could check 2 hours after breakfast and lunch, then switch to 1 hour for dinner to allow her to go to bed when desired. She seems amenable to this idea. Date Pre Post Pre Post Pre Post HS 07/04 82 79 84 99 07/05 81 99 84 90 07/06 82 88 91 87 07/07 73 85 88 113 07/08 80 107 85 116 07/09 81 87 124 83 07/10 78 78 95 Diabetes Medications: None Pertinent Labs: OGTT: 84, 183 H, 103, 158 H Nutrition Diagnosis: Altered nutrition related lab value r/t GDM dx aeb recent OGTT Nutrition and food related knowledge deficit r/t new GDM dx aeb diet recall and pt report Physical inactivity r/t weather changes aeb pt report Intervention: This participant was very receptive. Provided appropriate educational handouts. Discussed the following topics: GDM pathophysiology and impact of hyperglycemia on mom and baby Risk for T2DM for mom and baby in the future Ways to reduce risk T2DM Plate Method, meal timing, carb counting, pairing macronutrients and spreading out CHO for better BG management Blood glucose goals (FBG: <95 and 1 hour <140 mg/dL, 2 hour <120 mg/dL); importance of checking 4x per day (FBG and pc) Impact of macronutrients on blood glucose Recommended servings for carbohydrates at meals and snacks Brainstormed appropriate meal plan based on her food preferences Role of physical activity and following guidelines for safety Possible indoor physical activity on rainy days, including resistance bands or yoga Goals: Ask [place] about checking 1 hour after dinner BG- new Add protein to mid-morning snack- new Add vegetables to lunch and dinner - new Consider physical activity on rainy days, as discussed- new Follow-up: CHERIE TOLEDO follow-up in two weeks Thuy Fernandez RDN, [place] Certified Diabetes Care and Grant Specialist T: [phone] F: [phone] [email or web address] Thank you for this referral
== END ==
PROVIDERS: PCP Family Medicine; Referring Provider Family Medicine; Visit Provider Family Medicine
DX: O24.913 Unspecified diabetes mellitus in pregnancy, third trimester (principal); Z3A.31 31 weeks gestation of pregnancy; Z71.3 Dietary counseling and surveillance
CPT/HCPCS: G0108

== ENCOUNTER → 2021-07-25 14:04 | Outpatient (CLI) | payer OTHER, SELFPAY ==
--- NOTE | 2021-07-25 14:56 | DIAB.GDFU ---
Follow-up Gestational Diabetes Assessment Name: Steph Pham Date: 07/25/21 Time: 205-250p Dx: Gestational Diabetes Provider: Felisa CLOVIS: 09/06/21 Weeks: 34 tomorrow Steph presents today for follow-up for GDM. States she has been conscious of carb portions and BG. In fact, often gets nervous if BG is even 100-120 mg/dL 2 hours pc. Has increased vegetable intake as discussed last visit. Has added protein to morning snack, ie cheese. Has questions about lifestyle changes , T2 risk, and . States she is feeling hungry after breakfast. Some mornings she could add one more carb choice (ie small fruit). On cereal days, adding a protein would be best. Reports feeling worried her will not make it home for the of their son. He should be home between Aug 25-. MIL will be here to help (former OB RN) on Aug 21. She is feeling supported, but understandably wants her to be here. Plans to facetime him if he is unable to be home. Anthropometrics: Ht: 64 Wt: 173# Prepregnancy wt: 150# Physical Activity: Walking dog 1.5 mi x 4 days per week Self-Monitoring Blood Glucose: All readings in range. FB-82 mg/dL and pc: 73-114 mg/dL. Diabetes Medications: None Pertinent Labs: OGTT: 84, 183 H, 103, 158 H Nutrition Rx: Meal: 45-60g lunch and dinner; 30-45g breakfast Snack: 15-30g Intervention: This participant was very receptive. Provided appropriate educational handouts. Discussed the following topics: Recent blood sugar results and impact of food and hormones, getting enough nutrition and balancing BG, feelings around BG 100-120 mg/dL Review of macronutrient recommendations during and Benefits, resources, and nutrition for recommendations for nutrition and physical activity recommendations for T2DM risk reduction OGTT at 6-12 weeks Checking blood sugars twice per week (goal: fasting <100 mg/dL and 2 hour pc <140 mg/dL) until 6 week check-up HgA1c q 1-3 years and explanation of hgA1c Importance of support at home. Goals: Ask Felisa about checking 1 hour after dinner BG- met Add protein to mid-morning snack- met Add vegetables to lunch and dinner - met Consider physical activity on rainy days, as discussed- in progress Add a protein (or for some breakfast small fruit) to breakfast, as discussed- new Keep rice to 1c per meal- new recs: OGTT and HgA1c Follow-up: CHERIE TOLEDO follow-up prn. Provided her my card and encouraged her to call prn before or after baby arrives with any questions regarding GDM or T2 risk etc. She agreed to this plan. Thuy Fernandez RDN, FORMERLY NAMED [facility] Certified Diabetes Care and Brand Executive T: [phone] F: [phone] [email or web address] Thank you for this referral
== END ==
PROVIDERS: PCP Family Medicine; Referring Provider Family Medicine; Visit Provider Family Medicine
DX: O24.419 Gestational diabetes mellitus in pregnancy, unspecified control (principal); Z3A.33 33 weeks gestation of pregnancy; Z71.3 Dietary counseling and surveillance
CPT/HCPCS: G0108

== ENCOUNTER → 2021-08-14 16:17 | Outpatient (CLI) | payer OTHER, SELFPAY ==
[2021-08-15 12:43] LABS: Strep Grp B PCR NEG for Grp B Strep
== END ==
PROVIDERS: PCP Family Medicine; Referring Provider Family Medicine; Visit Provider Family Medicine
DX: Z34.90 Encounter for supervision of normal pregnancy, unspecified, unspecified trimester (principal); Z3A.36 36 weeks gestation of pregnancy
CPT/HCPCS: 87653

== ENCOUNTER 2021-08-24 15:43 | Inpatient (IN) | payer OTHER, SELFPAY ==
[2021-08-24 16:49] VITALS: BP 151/94; PULSE 118
[2021-08-24] MEDS: LABETALOL 20 MG/4 ML SYRINGE IV (16:49)
--- NOTE | 2021-08-24 16:58 | P.HPOB_ITS ---
OB HPI Date/Time Date of admission: 08/24/21 Date Patient Seen: 08/24/21 Time Patient Seen: 16:58 History of Present Condition Chief complaint: NST CLOVIS Calculator Estimated Delivery Date Method Current WG Current Estimate 09/06/21 Manual 38w 1d Final CLOVIS - DANIEL Other Estimates 09/01/21 LMP (Certain) 38w 6d 09/06/21 Ultrasound #1 38w 1d Estimated Gestational Age (weeks): 38w1d : 2 Para: 1 Narrative: Pt is a 30yo at 38w1d here for IOL due to gestational hypertension. Pt reports that at her dentist appt earlier today, her BP was in the 140s systolic. She also had a mild headache this morning, that ultimately resolved without intervention. She was noted to have significantly increased swelling in clinic, but the pt reports she hasn't really been paying attention to it. Her BP was elevated x 2 in clinic today, and then at admission to L&D was elevated to severe range. She denies any RUQ pain or vision changes. The pt has been feeling her baby move regularly. She is not having any contractions, vaginal bleeding, or LOF. The pts was also complicated by GDMA1. She had excellent control with diet alone, and had only a few isolated values above range. She was is also on acyclovir prophylaxis for hx of HSV without any recent lesions. care: good care, initiated at week # (7) and pounds weight gain (34) Dating criteria OB: based on 1st trimester US only Ultrasounds: normal 1st trimester US and abnormal US findings Abnormal ultrasound findings: Echogenic bowel on anatomy scan - repeat scan showed resolving. Obstetrical complications: gestational diabetes (A1) and gestational hypertension Medical complications OB: other (hx of HSV on acyclovir) Indications Indication for induction OB: gestational HTN/pre-eclampsia Preadmission Labs Last OB Lab Results: Blood Type A Positive 01/19/21 15:45 01/19/21 Antibody Screen Negative 01/19/21 15:45 01/19/21 Hematocrit 36.0 % (36-46) 06/22/21 08:03 06/22/21 Hemoglobin 12.2 g/dL (12.0-16.0) 06/22/21 08:03 06/22/21 Hepatitis B Surface Antigen Negative s/c (NEGATIVE) 01/19/21 15:45 01/19/21 Hepatitis C Antibody Negative s/c (NEGATIVE) 01/19/21 15:45 01/19/21 Rubella Antibody 157.0 IU/mL (>15) 01/19/21 15:45 01/19/21 Varicella-Zoster IgG Antibody 3567 index (Immune >165) 01/19/21 15:45 0 01/19/21 Glucose 1 Hour 167 mg/dL (76-139) H 06/22/21 08:03 06/22/21 Group B Streptococcus (PCR) Neg for grp b strep 08/14/21 16:17 08/14/21 Glucose Tolerance Testing: Fasting (84), 1 hr (83), 2 hr (103) and 3 hr (158) -: Chlamydia screen: negative, Gonorrhea screen: negative and Urine: negative -: PAP smear: Normal Genetic Screens: Cell-free DNA: Normal External Labs -: Urine: negative Prior (ies) Past Pregnancies Del. Date GA/Weeks Labor Lgth Wt Sex Route Outcome Anesthesia Place Delv Breastfeed Preg Comp Name 10/21/20 9 WA spontaneous Delivery Date: 10/21/20 Last Updated by: Kelli Hairston, R.N. *Rx Misoprostol. Evaluation Evaluation Baseline heart rate: 125 Variability: Moderate (11-25) monitor accelerations: Present Monitor Decelerations: Absent Status: Category l Dilation (cm): 2.5 Effacement (%): 50 Dilation: 1-2 cm Effacement: 40-50% station: -1 Position of cervix: anterior Consistency: soft [place] score: 8 PFSH Medical History Acne Frequent headaches (~11/2020) Genital herpes (~2013) SAB (spontaneous ) (~10/21/20) Surgical History (Updated 01/09/21 @ 12:46 by Kelli Hairston RN) [place] teeth extracted (~2015) Family History (Updated 01/09/21 @ 12:44 by Kelli Hairston RN) Mother Diabetes mellitus Hypertension Hyperlipidemia Type 2 diabetes mellitus Acute rheumatoid arthritis Father Hypertension CVA (cerebral vascular accident) Grandmother No problems noted. 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 Smoking Status: Never smoker second hand exposure: No alcohol intake: former (pre- : weekends usually/only) substance use type: does not use Meds Home Medications and Allergies Home Medications Medication Instructions Recorded Confirmed Type acetaminophen 325 mg capsule 650 mg PO Q6H PRN 01/09/21 01/09/21 History (Tylenol) acyclovir 400 mg tablet 400 mg PO .PRN tab 01/09/21 01/09/21 History doxylamine succinate 25 mg tablet 12.5 mg PO BEDTIME PRN tab 01/09/21 01/09/21 History (Unisom (doxylamine)) prenat.vits,chelita,rjc-monu-[id number] 1 tab PO DAILY 01/09/21 01/09/21 History blood sugar diagnostic (Blood #50 ea 07/02/21 Rx Glucose Test) blood-glucose meter (Blood Glucose #1 ea 07/02/21 Rx Monitoring) lancets (Accu-Chek Softclix #100 ea 07/02/21 Rx Lancets) acyclovir 400 mg tablet 400 mg PO TID #90 tab 08/07/21 08/07/21 Rx Allergies Allergy/AdvReac Type Severity Reaction Status Date / Time No Known Drug Allergies Allergy Verified 01/09/21 12:08 OB Exam Narrative Exam Narrative: Gen: NAD, laying comfortably in bed, appears well CV: RRR, no murmurs Resp: clear to auscultation bilaterally Abd: soft, nontender, gravid : normal external genitalia, fetus vertex Ext: 1+ edema bilaterally Neuro: No asterixis, 2+ patellar reflexes Objective Labs Result Diagrams: 08/24/21 16:38 08/24/21 16:38 Assessment and Plan Assessment and Plan Assessment and Plan narrative: 30yo at 38w1d here for IOL due to gestational hypertension. Pt with consistently elevated BPs up to and sustaining in the severe range for the past 1.5 hours, also with elevated BP more than 4 hours ago at the dentist office. Pt with increase in swelling and mild headache this morning, but not severe. No other severe symptoms. Lab work still pending. Based on gestational age and severity of elevation, recommend IOL today and pt consented. also complicated by GDMA1 with excellent blood sugar control. Pt with hx of HSV, on Acyclovir prophylaxis with no recent outbreaks. GBS negative, Rh positive. - Expectant management, anticipate - [place] store 8, start pitocin and titrate as tolerated - s/p single dose of IV Labetalol 20mg due to persistently elevated BPs to severe range. Continue to monitor closely. - Plan to start MgSO4 if BPs return to severe range - f/u pre-eclampsia/HELLP labs - GBS negative, no prophylaxis indicated - FHT reassuring - Epidural for pain control when desired
[2021-08-24 17:12] LABS: Add Manual Diff / Slide Review NO; Basophils Absolute Auto 0 /uL (0-100); Basophils Percent Auto 0.4 % (0-2); Eosinophils Absolute Auto 100 /uL (0-450); Eosinophils Percent Auto 0.7 % (2-4); Hemoglobin 11.9 g/dL (12.0-16.0); Lymphocytes Absolute Auto 1700 /uL (1100-4500); Lymphocytes Percent Auto 18.6 % (25-40); Mean Corpuscular HGB Conc 33.9 % (30-36); Mean Corpuscular Hemoglobin 28.1 PG (26-34); Mean Corpuscular Volume 82.9 fL (80-100); Monocytes Absolute Auto 800 /uL (0-900); Monocytes Percent Auto 9.4 % (3-14); Neutrophils Absolute Auto 6300 /uL (1500-7000); Neutrophils Percent Auto 70.9 % (50-75); Platelet Count 171 X10^3/uL (150-400); Red Blood Cell Count 4.22 X10^6/uL (4.0-5.2); Red Cell Distribution Width 13.7 % (11.6-14.8); White Blood Cell Count 8.9 X10^3/uL (4.5-11.0)
[2021-08-24] MEDS: OXYTOCIN PREMIX 30 UNIT/500 ML PLAST..BAG IV (17:19)
[2021-08-24] MEDS: LACTATED RINGERS 1,000 ML 100 ML IV (17:19)
[2021-08-24 17:23] LABS: INR 0.9 (0.9-1.3); Prothrombin Time 10.1 SECONDS (10.1-12.7)
[2021-08-24 17:26] LABS: PTT Partial Thromboplastin Tim 28 SECONDS (26.4-36.2)
[2021-08-24 17:27] LABS: COVID19 -Nasal RAPID Negative (Negative)
[2021-08-24 17:32] LABS: Alanine Aminotransferase 12 IU/L (<35); Albumin 3.9 g/dL (3.5-5.0); Albumin Globulin Ratio 1.3 (1.0-2.8); Alkaline Phosphatase 84 U/L (38-126); Aspartate Aminotransferase 20 IU/L (14-36); BUN Creatinine Ratio 7.9 (6-22); Bilirubin Total 0.3 mg/dL (0.2-1.3); Blood Urea Nitrogen 5 mg/dL (7-17); Calcium 9.6 mg/dL (8.4-10.2); Carbon Dioxide 25 mmol/L (22-32); Chloride 105 mmol/L (98-107); Estimated Glomerular Filt Rate > 60.0 mL/min (>60); Globulin 2.9 g/dL (1.7-4.1); Glucose 86 mg/dL (70-100); HEMOLYSIS < 15 (0-50); Potassium 3.7 mmol/L (3.4-5.1); Sodium 137 mmol/L (137-145); Total Protein 6.8 g/dL (6.3-8.2)
[2021-08-24 17:56] LABS: Creatinine Urine Random 48.4 mg/dL; Protein (Total) Urine Random 24 mg/dL (0-12); Protein Creatinine Ratio Urine 0.49 GRAM/24H
[2021-08-24 18:46] VITALS: BP 162/107
--- NOTE | 2021-08-24 22:35 | PM.OBPNLAB ---
Date/Time Date Patient Seen: 08/24/21 Time Patient Seen: 22:36 Pain Control Pain control: tolerating well Pelvic Exam Dilation (cm): 4 Effacement (%): 50 station: -1 Amniotic membrane status: Ruptured Comments: After informed consent, AROM performed with production of scant blood-tinged fluid. Contractions Pitocin rate (mU/min): 16 Contraction frequency (min): 3 Contraction duration (min): 1 Contraction pattern: Regular Status status: Category l Heart Rate Baseline: 120 Monitor Accelerations: Present Monitor Decelerations: Absent Monitor Variability: Moderate Assessment and Plan Comments: 30yo at 38w1d here for IOL due to gestational hypertension, diagnosed with pre-eclampsia after admission based on elevated protein/creatinine ratio. Pt with increase in swelling and mild headache this morning, but not severe.? No other severe symptoms.? No evidence of HELLP. BPs have remained in good range after single dose of IV Labetalol given at admission. also complicated by GDMA1 with excellent blood sugar control.? 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 GBS negative, Rh positive. Echogenic bowel noted on anatomy scan, improved on repeat scanning, with negative CMV and CF screening. AROM performed with production of no significant fluid to model and mold maker plaster clarity - head very well applied to cervix. Pt making gradual change on pitocin. - Expectant management, anticipate - Continue pitocin, titrate as tolerated - Continue to monitor BPs closely.? - Plan to start MgSO4 if BPs return to severe range - GBS negative, no prophylaxis indicated - FHT reassuring - Epidural for pain control when desired
[2021-08-25] MEDS: LACTATED RINGERS 1,000 ML 100 ML IV ×2 (01:11→04:24)
--- NOTE | 2021-08-25 09:19 | P.PNOB_ITS ---
Date/Time Date Patient Seen: 08/25/21 Time Patient Seen: 09:19 Pain Control Pain control: epidural Pelvic Exam Dilation (cm): 9 Effacement (%): 100 station: -1 Amniotic membrane status: Ruptured Contractions Pitocin rate (mU/min): 8 Contraction frequency (min): 2 Contraction pattern: Regular Status status: Category l Heart Rate Baseline: 150 Monitor Accelerations: Present Monitor Decelerations: Absent Monitor Variability: Moderate Assessment and Plan Comments: 30yo at 38w1d here for IOL due to gestational hypertension, diagnosed with pre-eclampsia after admission based on elevated protein/creatinine ratio.? No severe symptoms.? No evidence of HELLP.? BPs have remained in good range after single dose of IV Labetalol given at admission.? also complicated by GDMA1 with excellent blood sugar control.? 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 GBS negative, Rh positive.? Echogenic bowel noted on anatomy scan, improved on repeat scanning, with negative CMV and CF screening.? AROM performed with clear fluid approximately 11 hours ago. 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 Practice push unable to reduce remaining cervix. Baby with significant molding and caput present. - Expectant management, anticipate . Plan to recheck cervix in 1 hour with practice push again. If without any significant change, will begin discussion about possible need for . - Continue pitocin, titrate as tolerated - Continue to monitor BPs closely.? - Plan to start MgSO4 if BPs return to severe range - GBS negative, no prophylaxis indicated - FHT reassuring - Epidural in place for pain control
[2021-08-25] MEDS: FENT 2MCG/ML BUPIV 0.125% EPI 200 MCG/100 ML PLAST..BAG 8 MCG EPIDURAL (09:35)
[2021-08-25 09:46] VITALS: BP 163/98; PULSE 110
[2021-08-25] MEDS: LABETALOL 20 MG/4 ML SYRINGE IV (09:46)
--- NOTE | 2021-08-25 10:09 | PM.OBPNLAB ---
Date/Time Date Patient Seen: 08/25/21 Pain Control Pain control: tolerating well and epidural Pelvic Exam Dilation (cm): 9.5 Effacement (%): 100 station: +1 Amniotic membrane status: Ruptured Contractions Pitocin rate (mU/min): 8 Contraction frequency (min): 2 Contraction pattern: Regular Status status: Category l Heart Rate Baseline: 150 Monitor Accelerations: Present Monitor Decelerations: Absent Monitor Variability: Moderate Assessment and Plan Comments: 30yo at 38w1d here for IOL due to gestational hypertension, diagnosed with pre-eclampsia after admission based on elevated protein/creatinine ratio.? No severe symptoms.? No evidence of HELLP.? BPs now persistently elevated to severe range. S/P single dose 20mg IV Labetalol at admission, and additional dose now.? also complicated by GDMA1 with excellent blood sugar control.? 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 GBS negative, Rh positive.? Echogenic bowel noted on anatomy scan, improved on repeat scanning, with negative CMV and CF screening.? AROM performed with clear fluid approximately 11 hours ago. - Expectant management, anticipate .? Pt now with some cervical change, believe should be able to reduce cervical lip that remains that has mild swelling present. Will attempt to start pushing as pt is feeling increasing pressure. - Continue pitocin, titrate as tolerated - Continue to monitor BPs closely. Now consistently in severe range. - No significant response to 20mg IV Labetalol. 40mg IV Labetalol now. - Start 6g MgSO4 bolus, plan to run 2g/hr afterwards for at least 24 hours - Repeat CBC and CMP ordered - GBS negative, no prophylaxis indicated - FHT reassuring - Epidural in place for pain control
[2021-08-25 10:11] VITALS: BP 160/91; PULSE 103
[2021-08-25] MEDS: LABETALOL 20 MG/4 ML SYRINGE 40 MG IV (10:11)
[2021-08-25] MEDS: MAGNESIUM SULFATE IV (10:15)
[2021-08-25] MEDS: PIGGYBACK IV (10:15)
[2021-08-25] MEDS: MAGNESIUM SULFATE 20 GM/500 ML IV.SOLN IV ×2 (10:55→21:14)
--- NOTE | 2021-08-25 10:55 | PM.OBPNLAB ---
Date/Time Date Patient Seen: 08/25/21 Time Patient Seen: 10:56 Pain Control Pain control: epidural Pelvic Exam Dilation (cm): 10 Effacement (%): 100 station: +2 Amniotic membrane status: Ruptured Contractions Pitocin rate (mU/min): 8 Contraction frequency (min): 2 Contraction pattern: Regular Status status: Category ll Heart Rate Baseline: 165 Monitor Accelerations: Present Monitor Decelerations: Variable Monitor Variability: Moderate Assessment and Plan Comments: 30yo at 38w1d here for IOL due to gestational hypertension, diagnosed with pre-eclampsia after admission based on elevated protein/creatinine ratio.? No severe symptoms.? No evidence of HELLP.? s/p single dose 20mg IV Labetalol at admission. BPs to severe range today, now normalized after total of 60mg IV Labetalol, pt on MgSO4 as well.? also complicated by GDMA1 with excellent blood sugar control.? 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 GBS negative, Rh positive.? Echogenic bowel noted on anatomy scan, improved on repeat scanning, with negative CMV and CF screening.? AROM performed with clear fluid last night. Pt now with elevated temperature to 100.5F and 100.8F on repeat, and FHT baseline rising, now at 165. Will start treatment for chorioamnionitis now. - Expectant management, anticipate .? Pt now with some cervical change, believe should be able to reduce cervical lip that remains that has mild swelling present.? Will attempt to start pushing as pt is feeling increasing pressure. - Continue pitocin, titrate as tolerated - Continue to monitor BPs closely. - Continue MgSO4 at 2g/hr, s/p 6g/hr bolus, will continue for 24hrs - Repeat CBC and CMP ordered - GBS negative. ROM 13hrs. Now with signs of chorioamnionitis. Start Ampicillin and Gentamicin. - FHT overall reassuring with mild variables with pushing - Epidural in place for pain control
[2021-08-25] MEDS: AMPICILLIN 2,000 MG in SODIUM CHLORIDE 0.9% 100 ML 400 ML IV ×2 (11:12→19:21)
[2021-08-25] MEDS: miSOPROStoL 200 MCG TABLET 1000 MCG PR (11:57)
--- NOTE | 2021-08-25 12:19 | PM.OBPRVD ---
Events: Induced HTN Labor & Delivery Delivery date: 08/25/21 Intrapartal Events: Febrile, Severe Preeclampsia, Extended Tachycardia and Chorioamnionitis Induction method: per pitocin protocol Delivery augmentation: rupture of membranes Delivery monitor: external FHT Route of delivery: Episiotomy description: None L&D Laceration Description: Perineal - 1st Degree Delivery repair: chromic Estimated blood loss (mL): 600 Anesthesia Type: Epidural Narrative: PROCEDURE: at 38w1d presented for IOL for gestational hypertension and was admitted to Labor and Delivery. Immediately after admission, the pts blood pressures were in severe range but improved with one dose of 20mg IV Labetalol. Lab work ultimately returned showing pre-eclampsia but no HELLP. The patient progressed through the 1st stage over 15 hours. Pain was controlled with an epidural. While in labor, the pts blood pressures yaniv to severe range. She received a total of 60mg IV Labetalol and a 6g bolus of MgSO4 was given followed by 2g/hr. At the start of the 2nd stage of labor, prior to pushing, the pts temperature was noted to be elevated with rising FHT. Tmax was 100.8F. She was diagnosed with chorioamnionitis, and ampicillin and gentamicin were initiated. The patient progressed through the 2nd stage over 1 hour and delivered a viable male with APGARs 9/9 at 11:45am via . The cord was cut and clamped after it stopped pulsating. With gentle cord traction, the cord avulsed. However, the remaining cord was able to be grasped and the placenta delivered with gentle cord traction. The entire placenta was noted to be present. The perineum and vagina were inspected with right sided 1st degree perineal laceration that was bleeding profusely. This was repaired with 3-O Chromic with excellent hemostasis. The pt was also noted to have significant vaginal bleeding with poor fundal tone. Bimanual massage was completed with improvement in tone and removal of several clots. The pt was then given 1000mcg rectal cytotec, and her tone improved and maintained with appropriate vaginal bleeding. PREPROCEDURE DIAGNOSIS: Intrauterine at 38w2d Chorioamnionitis Pre-eclampsia with severe features GDMA1 Hx of HSV - no lesions at admission GBS negative RH positive POSTPROCEDURE DIAGNOSIS: Intrauterine at 38w2d, delivered Same as preprocedure hemorrhage Baby 1: gender: Male Presentation: vertex Position: Left Occiput Anterior Placenta delivery description: Spontaneous Cord Vessel Description: 3 Vessels score (1 min): 9 score (5 min): 9 weight: 6 lb 14.972 oz Plan for aftercare: Routine care and Other (continue MgSO4, ampicillin, and gentamicin for at least 24hrs , monitor BPs closely)
[2021-08-25 12:40] LABS: Add Manual Diff / Slide Review NO; Basophils Absolute Auto 100 /uL (0-100); Basophils Percent Auto 0.4 % (0-2); Eosinophils Absolute Auto 0 /uL (0-450); Hematocrit 34.8 % (36-46); Hemoglobin 11.7 g/dL (12.0-16.0); Lymphocytes Absolute Auto 800 /uL (1100-4500); Mean Corpuscular HGB Conc 33.7 % (30-36); Mean Corpuscular Hemoglobin 27.7 PG (26-34); Mean Corpuscular Volume 82.1 fL (80-100); Monocytes Absolute Auto 800 /uL (0-900); Monocytes Percent Auto 5.1 % (3-14); Neutrophils Absolute Auto 14600 /uL (1500-7000); Neutrophils Percent Auto 89.5 % (50-75); Platelet Count 160 X10^3/uL (150-400); Red Blood Cell Count 4.24 X10^6/uL (4.0-5.2); Red Cell Distribution Width 13.9 % (11.6-14.8); White Blood Cell Count 16.3 X10^3/uL (4.5-11.0)
[2021-08-25 12:42] VITALS: TEMP 37.6
[2021-08-25] MEDS: ACETAMINOPHEN 325 MG TABLET 650 MG PO ×2 (12:42→19:22)
[2021-08-25] MEDS: GENTAMICIN 330 MG in SODIUM CHLORIDE 0.9% 100 ML 108.25 ML IV (12:52)
[2021-08-25 12:55] LABS: Albumin 3.6 g/dL (3.5-5.0); Albumin Globulin Ratio 1.2 (1.0-2.8); Alkaline Phosphatase 88 U/L (38-126); Aspartate Aminotransferase 30 IU/L (14-36); BUN Creatinine Ratio 4.4 (6-22); Bilirubin Total 0.5 mg/dL (0.2-1.3); Blood Urea Nitrogen 3 mg/dL (7-17); Calcium 8.5 mg/dL (8.4-10.2); Carbon Dioxide 22 mmol/L (22-32); Chloride 103 mmol/L (98-107); Estimated Glomerular Filt Rate > 60.0 mL/min (>60); Globulin 2.9 g/dL (1.7-4.1); Glucose 110 mg/dL (70-100); HEMOLYSIS < 15 (0-50); Potassium 3.9 mmol/L (3.4-5.1); Sodium 135 mmol/L (137-145); Total Protein 6.5 g/dL (6.3-8.2)
[2021-08-25 13:01] LABS: Alanine Aminotransferase 18 IU/L (<35)
[2021-08-25 15:00] VITALS: TEMP 38.7
[2021-08-25] MEDS: IBUPROFEN 600 MG TABLET PO ×2 (15:00→21:14)
[2021-08-25 18:45] LABS: Magnesium 4.3 mg/dL (1.6-2.3)
[2021-08-26 00:52] LABS: Magnesium 4.9 mg/dL (1.6-2.3)
[2021-08-26] MEDS: AMPICILLIN 2,000 MG in SODIUM CHLORIDE 0.9% 100 ML 400 ML IV ×3 (01:35→13:47)
[2021-08-26] MEDS: ACETAMINOPHEN 325 MG TABLET 650 MG PO ×3 (01:36→21:42)
[2021-08-26 06:22] LABS: Add Manual Diff / Slide Review NO; Basophils Absolute Auto 0 /uL (0-100); Basophils Percent Auto 0.2 % (0-2); Eosinophils Absolute Auto 100 /uL (0-450); Eosinophils Percent Auto 0.7 % (2-4); Lymphocytes Absolute Auto 1300 /uL (1100-4500); Lymphocytes Percent Auto 10.5 % (25-40); Mean Corpuscular HGB Conc 33.4 % (30-36); Mean Corpuscular Hemoglobin 27.5 PG (26-34); Mean Corpuscular Volume 82.3 fL (80-100); Monocytes Absolute Auto 900 /uL (0-900); Monocytes Percent Auto 7.1 % (3-14); Neutrophils Absolute Auto 10200 /uL (1500-7000); Neutrophils Percent Auto 81.5 % (50-75); Platelet Count 150 X10^3/uL (150-400); Red Blood Cell Count 3.65 X10^6/uL (4.0-5.2); Red Cell Distribution Width 13.8 % (11.6-14.8); White Blood Cell Count 12.5 X10^3/uL (4.5-11.0)
[2021-08-26 06:24] LABS: Magnesium 4.8 mg/dL (1.6-2.3)
[2021-08-26] MEDS: MAGNESIUM SULFATE 20 GM/500 ML IV.SOLN IV (07:45)
[2021-08-26] MEDS: PRENATAL VIT,CALC/IRON/FOLIC 1 TABLET 1 TAB PO (09:00)
[2021-08-26] MEDS: FERROUS SULFATE 325 MG TABLET PO (09:00)
--- NOTE | 2021-08-26 10:36 | P.PNOB_ITS ---
Subjective - OB Subjective Date Patient Seen: 08/26/21 Time Patient Seen: 10:36 Interval history: Pt reports that she is overall feeling well. No headache, vision changes, RUQ pain, worsening swelling. She has been diuresing significantly on the MgSO4. Her lochia is appropriate. Her pain is well controlled. She continues to have a etienne in place and has not yet ambulated. Exam Narrative Exam Narrative: Gen: NAD, sitting comfortably in bed, appears well CV: RRR, no murmurs Resp: clear to auscultation bilaterally Abd: soft, appropriately tender, fundus firm and below the umbilicus, nondistended Ext: no edema Objective Labs Result Diagrams: 08/26/21 05:58 08/25/21 12:30 Labs: Laboratory Results - last 24 hr 08/25/21 08/25/21 08/25/21 12:30 12:30 18:05 WBC 16.3 H D RBC 4.24 Hgb 11.7 L Hct 34.8 L MCV 82.1 MCH 27.7 MCHC 33.7 RDW 13.9 Plt Count 160 Neut % (Auto) 89.5 H Lymph % (Auto) 5.0 L [place] % (Auto) 5.1 Eos % (Auto) 0.0 L Baso % (Auto) 0.4 Neut # (Auto) 59675 H Lymph # (Auto) 800 L [place] # (Auto) 800 Eos # (Auto) 0 Baso # (Auto) 100 Sodium 135 L Potassium 3.9 Chloride 103 Carbon Dioxide 22 BUN 3 L Creatinine 0.68 Estimated GFR > 60.0 BUN/Creatinine Ratio 4.4 L Glucose 110 H Calcium 8.5 Magnesium 4.3 H Total Bilirubin 0.5 AST 30 ALT 18 Alkaline Phosphatase 88 Total Protein 6.5 Albumin 3.6 Globulin 2.9 Albumin/Globulin Ratio 1.2 08/26/21 08/26/21 08/26/21 00:30 05:58 05:58 WBC 12.5 H RBC 3.65 L Hgb 10.0 L Hct 30.0 L MCV 82.3 MCH 27.5 MCHC 33.4 RDW 13.8 Plt Count 150 Neut % (Auto) 81.5 H Lymph % (Auto) 10.5 L [place] % (Auto) 7.1 Eos % (Auto) 0.7 L Baso % (Auto) 0.2 Neut # (Auto) 94997 H Lymph # (Auto) 1300 [place] # (Auto) 900 Eos # (Auto) 100 Baso # (Auto) 0 Sodium Potassium Chloride Carbon Dioxide BUN Creatinine Estimated GFR BUN/Creatinine Ratio Glucose Calcium Magnesium 4.9 H 4.8 H Total Bilirubin AST ALT Alkaline Phosphatase Total Protein Albumin Globulin Albumin/Globulin Ratio Assessment & Plan Plan Comments: 31yo PPD #1 s/p complicated by pre-eclampsia with severe features on MgSO4, chorioamnionitis, and hemorrhage. Pt now stable. BPs have remained < 150/100. Last temperature at 15:45 yesterday. Pt currently stable. Pre-eclampsia with severe features: BPs have remained out of treatment range - Continue to monitor BPs closely, plan on q4h vitals after MgSO4 stopped - Plan to d/c MgSO4 at delivery time of 11:45 Chorioamnionitis: - Continue Ampicillin, Gentamicin for 24hrs after last temperature, later today - Continue to monitor for fever closely hemorrhage: H/H with relatively minimal but appropriate drop, with acute blood loss anemia secondary to hemorrhage - Oral iron supplementation care: - Normal care - support Dispo: Plan on d/c tomorrow pending no additional complications and BPs remain in good range. Time Spent With Patient Time: Total time spent is greater than 50% in coordination of care (as documented) at patient's floor/unit and/or counseling patient: Time with patient: 15-24 minutes
[2021-08-26] MEDS: GENTAMICIN 330 MG in SODIUM CHLORIDE 0.9% 100 ML 108.25 ML IV (11:11)
[2021-08-26] MEDS: IBUPROFEN 600 MG TABLET PO (13:46)
[2021-08-26] MEDS: METOPROLOL IR 25 MG TABLET PO (21:43)
[2021-08-27] MEDS: ACETAMINOPHEN 325 MG TABLET 650 MG PO ×3 (08:26→21:16)
[2021-08-27] MEDS: IBUPROFEN 600 MG TABLET PO ×2 (08:26→14:38)
[2021-08-27] MEDS: FERROUS SULFATE 325 MG TABLET PO (08:27)
[2021-08-27] MEDS: PRENATAL VIT,CALC/IRON/FOLIC 1 TABLET 1 TAB PO (08:27)
[2021-08-27] MEDS: DOCUSATE 100 MG CAPSULE PO (08:27)
[2021-08-27 10:15] VITALS: BP 136/82
[2021-08-27] MEDS: LABETALOL 100 MG TABLET PO ×2 (10:15→13:54)
[2021-08-27 13:54] VITALS: BP 143/88; PULSE 73
--- NOTE | 2021-08-27 14:44 | PM.OBDS.1 ---
Discharge Providers Provider Date of admission: 08/24/21 15:43 Discharge Date: 08/27/21 Primary care physician: Anastasiia Roberto MD Consults: 08/26/21 12:17 Consult to Retail Marketing Coordinator Routine Comment: Discharge provider: Anastasiia Roberto MD Summary Hospital Course Date Patient Seen: 08/27/21 Time Patient Seen: 07:50 Diagnoses: 38w2d gestation GBS negative Rh positive GDMA1 Pre-eclampsia with severe features Chorioamnionitis hemorrhage Hx of HSV Hospital Course: The pt presented for IOL due to gestational hypertension, shown to be pre-eclampsia after admission labs returned. She received a single dose of IV Labetalol immediately at admission due to BPs elevated to severe range. She was started on pitocin. AROM was performed with clear fluid present. She received an epidural for pain control. The pts BPs then yaniv again to severe range, and she received additional doses of IV Labetalol and was also started on MgSO4. Her BPs responded well. Just as the pt reached the 2nd stage of labor, she developed a Tmax of 100.8F and FHT yaniv. She was diagnosed with chorioamnionitis and was started on ampicillin and gentamicin. She then had a spontaneous vaginal delivery of a viable baby boy. A first degree laceration was then repaired that was bleeding heavily. She had uterine atony that was controlled with bimanual massage and rectal cytotec. The pt tolerated delivery well. She was started on PO Labetalol. The MgSO4, Ampicillin, and Gentamicin were continued for 24hrs after delivery. PPD #1 the pts blood pressures yaniv again, however not to severe range. She was started on PO Labetalol. PPD #2 her BPs again were elevated above goal, and the Labetalol dosing was increased with good BP control. The pt was afebrile for 24hrs off antibiotics prior to discharge. She will f/u in 1 week for BP check in clinic. She is to continue checking her BP at home BID until then. Peripartum Data Infant Delivery Method: Natural Vaginal Laceration Description: Perineal - 1st Degree Episiotomy description: None Procedures: Spontaneous vaginal delivery complications: none 1: Gender: Male Disposition of : home Discharge Diagnosis (1) Severe pre-eclampsia: Status: Acute (2) Chorioamnionitis: Status: Acute (3) Gestational diabetes: Status: Acute (4) hemorrhage: Status: Acute Status at Discharge Cognitive/behavioral status at discharge: oriented Functional status at discharge: independent ambulation Overall status at discharge: patient is progressing back to baseline Time Spent with Patient Time attestation: Total time spent providing and/or coordinating discharge services: Time spent: Greater than 30 minutes Objective Labs Result Diagrams: 08/26/21 05:58 08/25/21 12:30 Exam Vital Signs (past 8 hours): - 08/27/21 10:15 08/27/21 13:54 Pulse Rate 73 Blood Pressure 136/82 143/88 H Narrative Exam Narrative: Gen: NAD, sitting comfortably in bed, appears well CV: RRR, no murmurs Resp: clear to auscultation bilaterally Abd: soft, appropriately tender, fundus firm and below the umbilicus, nondistended Ext: no edema Discharge Plan Discharge orders & Medications Discharge Orders: Discharge (Order); Ordered 08/27/21 Ordered By: Anastasiia Roberto Prescriptions: New labetalol 200 mg tablet 200 mg PO BID Qty: 60 2RF Continued prenat.vits,chelita,brp-hayo-adtls Tablet 1 tab PO DAILY 0RF acetaminophen [Tylenol] 325 mg capsule 650 mg PO Q6H PRN (Reason: Headache) 0RF acyclovir 400 mg tablet 400 mg PO .PRN 0RF Discontinued acyclovir 400 mg tablet 400 mg PO TID Qty: 90 2RF (DME) blood-glucose meter [Blood Glucose Monitoring] Kit See Rx Instructions .Route Qty: 1 0RF Rx Instructions: use to test blood glucose 4 times daily (DME) Blood Glucose Test Strip See Rx Instructions .Route Qty: 50 5RF Rx Instructions: use to test blood glucose 4 times daily (DME) lancets [Accu-Chek Softclix Lancets] Misc See Rx Instructions .Route Qty: 100 2RF Rx Instructions: use to test blood glucose 4 times daily Unisom (doxylamine) 25 mg tablet 12.5 mg PO BEDTIME PRN0RF Follow up/Referrals: Anastasiia Roberto MD [Primary Care Provider] - 09/03/21 12:15 pm Diet/Activity/Treatments Diet: Diet as Tolerated and Regular Skin/Wound/Dressing Care Report to your healthcare provider any signs of infection, such as:: chills, fever, increased pain and unusual drainage Visit Report/Discharge Packet Instructions: DI for Labor and Delivery, Vaginal Stand Alone Forms: Discharge: Care Visit Report Forms: Patient Portal/API, Stroke Signs & Symptoms Discharge Data Primary Care Provider: Anastasiia Roberto
[2021-08-27 17:17] VITALS: BP 155/92
[2021-08-27] MEDS: LABETALOL 100 MG TABLET 200 MG PO ×2 (17:17→21:15)
[2021-08-27 18:49] VITALS: BP 142/98; PULSE 73
[2021-08-27 19:02] LABS: Add Manual Diff / Slide Review NO; Basophils Absolute Auto 100 /uL (0-100); Basophils Percent Auto 0.9 % (0-2); Eosinophils Absolute Auto 300 /uL (0-450); Eosinophils Percent Auto 2.9 % (2-4); Hematocrit 30.1 % (36-46); Hemoglobin 10.2 g/dL (12.0-16.0); Lymphocytes Absolute Auto 1800 /uL (1100-4500); Lymphocytes Percent Auto 19.8 % (25-40); Mean Corpuscular HGB Conc 33.8 % (30-36); Mean Corpuscular Hemoglobin 27.9 PG (26-34); Mean Corpuscular Volume 82.4 fL (80-100); Monocytes Absolute Auto 400 /uL (0-900); Monocytes Percent Auto 4.7 % (3-14); Neutrophils Absolute Auto 6500 /uL (1500-7000); Neutrophils Percent Auto 71.7 % (50-75); Platelet Count 192 X10^3/uL (150-400); Red Blood Cell Count 3.65 X10^6/uL (4.0-5.2); Red Cell Distribution Width 13.9 % (11.6-14.8)
[2021-08-27 19:18] LABS: Alanine Aminotransferase 14 IU/L (<35); Albumin 3.5 g/dL (3.5-5.0); Albumin Globulin Ratio 1.1 (1.0-2.8); Alkaline Phosphatase 61 U/L (38-126); Aspartate Aminotransferase 29 IU/L (14-36); Bilirubin Total 0.2 mg/dL (0.2-1.3); Blood Urea Nitrogen 13 mg/dL (7-17); Calcium 10.6 mg/dL (8.4-10.2); Carbon Dioxide 27 mmol/L (22-32); Chloride 103 mmol/L (98-107); Estimated Glomerular Filt Rate > 60.0 mL/min (>60); Globulin 3.1 g/dL (1.7-4.1); Glucose 125 mg/dL (70-100); HEMOLYSIS < 15 (0-50); Sodium 137 mmol/L (137-145); Total Protein 6.6 g/dL (6.3-8.2)
[2021-08-27] MEDS: LANOLIN OINT 7 GM 1 APPLIC TOP (21:16)
[2021-08-28] VITALS (17 sets, daily range): BP systolic 117–161; BP diastolic 67–94; PULSE 75–106; TEMP 36.7–37.2
[2021-08-28] MEDS: DERMOPLAST SPRAY 20% 60 ML 1 SPRAY TOP (08:04)
[2021-08-28] MEDS: ACETAMINOPHEN 325 MG TABLET 650 MG PO ×2 (08:08→16:12)
[2021-08-28] MEDS: IBUPROFEN 600 MG TABLET PO ×2 (08:09→16:10)
[2021-08-28] MEDS: DOCUSATE 100 MG CAPSULE PO (08:34)
[2021-08-28] MEDS: FERROUS SULFATE 325 MG TABLET PO (08:34)
[2021-08-28] MEDS: PRENATAL VIT,CALC/IRON/FOLIC 1 TABLET 1 TAB PO (08:34)
[2021-08-28] MEDS: LABETALOL 100 MG TABLET 300 MG PO (08:35)
[2021-08-28] MEDS: NIFEdipine 30 MG TAB ER PO ×2 (08:36→11:25)
[2021-08-28 10:31] LABS: Add Manual Diff / Slide Review NO; Basophils Absolute Auto 100 /uL (0-100); Basophils Percent Auto 1.3 % (0-2); Eosinophils Absolute Auto 300 /uL (0-450); Eosinophils Percent Auto 4.4 % (2-4); Hematocrit 27.3 % (36-46); Hemoglobin 9.5 g/dL (12.0-16.0); Lymphocytes Absolute Auto 1400 /uL (1100-4500); Lymphocytes Percent Auto 19.4 % (25-40); Mean Corpuscular HGB Conc 34.7 % (30-36); Mean Corpuscular Hemoglobin 28.3 PG (26-34); Mean Corpuscular Volume 81.4 fL (80-100); Monocytes Absolute Auto 500 /uL (0-900); Monocytes Percent Auto 7.6 % (3-14); Neutrophils Absolute Auto 4800 /uL (1500-7000); Neutrophils Percent Auto 67.3 % (50-75); Platelet Count 187 X10^3/uL (150-400); Red Blood Cell Count 3.36 X10^6/uL (4.0-5.2); White Blood Cell Count 7.1 X10^3/uL (4.5-11.0)
[2021-08-28 10:42] LABS: Alanine Aminotransferase 18 IU/L (<35); Albumin 3.3 g/dL (3.5-5.0); Albumin Globulin Ratio 1.2 (1.0-2.8); Alkaline Phosphatase 55 U/L (38-126); Aspartate Aminotransferase 31 IU/L (14-36); BUN Creatinine Ratio 17.2 (6-22); Bilirubin Total 0.2 mg/dL (0.2-1.3); Blood Urea Nitrogen 10 mg/dL (7-17); Carbon Dioxide 26 mmol/L (22-32); Chloride 105 mmol/L (98-107); Estimated Glomerular Filt Rate > 60.0 mL/min (>60); Globulin 2.7 g/dL (1.7-4.1); Glucose 96 mg/dL (70-100); HEMOLYSIS < 15 (0-50); Potassium 3.3 mmol/L (3.4-5.1); Sodium 138 mmol/L (137-145)
[2021-08-28] MEDS: POTASSIUM CHLORIDE 20 MEQ TAB 40 MEQ PO ×2 (11:25→17:20)
[2021-08-28] MEDS: LABETALOL 20 MG/4 ML SYRINGE IV (11:25)
[2021-08-28] MEDS: HYDRALAZINE 20 MG/ML VIAL 5 MG IV (13:39)
[2021-08-28] MEDS: LABETALOL 100 MG TABLET PO (13:49)
[2021-08-28] MEDS: HYDRALAZINE 20 MG/ML VIAL 10 MG IV (14:50)
--- NOTE | 2021-08-28 15:15 | PM.OBPN.1 ---
Subjective - OB Subjective Date Patient Seen: 08/28/21 Time Patient Seen: 08:00 Interval history: Pts BP yaniv yesterday again to > 150 systolic near to discharge. She was kept overnight for continued monitoring. PO Labetalol was increased to 300mg BID. This morning the pt denies any headache, vision changes, RUQ pain, or LE edema. She is feeling well. She has not been able to get much sleep, but otherwise has no concerns. She is anxious to return home. Exam Vital Signs (past 8 hours): - 08/28/21 08:08 08/28/21 08:09 08/28/21 08:35 Temperature 98.1 F 98.1 F Pulse Rate 75 Blood Pressure 154/94 H 08/28/21 09:05 08/28/21 11:25 08/28/21 13:39 Temperature Pulse Rate 84 79 Blood Pressure 161/88 H 155/94 H 146/89 H 08/28/21 13:49 08/28/21 14:21 Temperature Pulse Rate 79 87 Blood Pressure 146/89 H 143/87 H Narrative Exam Narrative: Gen: NAD, sitting comfortably in bed, appears well CV: RRR, no murmurs Resp: clear to auscultation bilaterally Abd: soft, appropriately tender, fundus firm and below the umbilicus, nondistended Ext: trace edema Objective Labs Result Diagrams: 08/28/21 10:20 08/28/21 10:20 Labs: Laboratory Results - last 24 hr 08/27/21 08/27/21 08/28/21 18:47 18:47 10:20 WBC 9.0 7.1 RBC 3.65 L 3.36 L Hgb 10.2 L 9.5 L Hct 30.1 L 27.3 L MCV 82.4 81.4 MCH 27.9 28.3 MCHC 33.8 34.7 RDW 13.9 14.0 Plt Count 192 187 Neut % (Auto) 71.7 67.3 Lymph % (Auto) 19.8 L 19.4 L [place] % (Auto) 4.7 7.6 Eos % (Auto) 2.9 4.4 H Baso % (Auto) 0.9 1.3 Neut # (Auto) 6500 4800 Lymph # (Auto) 1800 1400 [place] # (Auto) 400 500 Eos # (Auto) 300 300 Baso # (Auto) 100 100 Sodium 137 Potassium 3.0 L Chloride 103 Carbon Dioxide 27 BUN 13 Creatinine 0.62 Estimated GFR > 60.0 BUN/Creatinine Ratio 21.0 Glucose 125 H Calcium 10.6 H Total Bilirubin 0.2 AST 29 ALT 14 Alkaline Phosphatase 61 Total Protein 6.6 Albumin 3.5 Globulin 3.1 Albumin/Globulin Ratio 1.1 08/28/21 10:20 WBC RBC Hgb Hct MCV MCH MCHC RDW Plt Count Neut % (Auto) Lymph % (Auto) [place] % (Auto) Eos % (Auto) Baso % (Auto) Neut # (Auto) Lymph # (Auto) [place] # (Auto) Eos # (Auto) Baso # (Auto) Sodium 138 Potassium 3.3 L Chloride 105 Carbon Dioxide 26 BUN 10 Creatinine 0.58 Estimated GFR > 60.0 BUN/Creatinine Ratio 17.2 Glucose 96 Calcium 10.0 Total Bilirubin 0.2 AST 31 ALT 18 Alkaline Phosphatase 55 Total Protein 6.0 L Albumin 3.3 L Globulin 2.7 Albumin/Globulin Ratio 1.2 Assessment & Plan Assessment and Plan (1) Severe pre-eclampsia: Status: Acute (2) Chorioamnionitis: Status: Acute (3) Gestational diabetes: Status: Acute (4) hemorrhage: Status: Acute Plan Comments: 31yo PPD #3 s/p complicated by pre-eclampsia with severe features on MgSO4, chorioamnionitis, and hemorrhage. Pre-eclampsia with severe features:? BPs have been difficult to control. Not consistently elevated to severe range, however frequently > 150 systolic. Majority diastolic in the 90s. PO Labetalol increased to 300mg BID last night. This morning initiated 30mg XR Nifedipine. Additional doses of IV medication provided today in attempt to more promptly lower BP to acceptable range. Pt asymptomatic. Still no evidence of HELLP. - Increased to 60mg XR Nifedipine today, will continue daily - Increased to 400mg Labetalol BID, continue - Now s/p 20mg IV Labetalol - s/p total 15mg IV Hydralazine - Start 10mg PO Hydralazine q6hr -- BP down to acceptable range after addition of Hydralazine, will continue - Continue to monitor BPs closely, q4hrs Chorioamnionitis: Completed 24hr course of antibiotics after last fever. No evidence of return infection hemorrhage: - Oral iron supplementation care: - Normal care - support Dispo:? Pending stabilization of BPs and maintenance < 150/100. Time Spent With Patient Time: Total time spent is greater than 50% in coordination of care (as documented) at patient's floor/unit and/or counseling patient: Time with patient: Greater than 35 minutes
[2021-08-28] MEDS: HYDRALAZINE 10 MG TABLET PO (17:41)
[2021-08-28] MEDS: OXYCODONE IR 5 MG TABLET PO (20:37)
[2021-08-28] MEDS: LABETALOL 100 MG TABLET 400 MG PO (21:07)
[2021-08-28 22:01] LABS: HEMOLYSIS < 15 (0-50); Potassium 3.7 mmol/L (3.4-5.1)
[2021-08-29] MEDS: OXYCODONE IR 5 MG TABLET PO (02:06)
[2021-08-29] MEDS: IBUPROFEN 600 MG TABLET PO (02:07)
[2021-08-29] MEDS: ACETAMINOPHEN 325 MG TABLET 650 MG PO (02:07)
[2021-08-29] MEDS: FERROUS SULFATE 325 MG TABLET PO (09:17)
[2021-08-29] MEDS: DOCUSATE 100 MG CAPSULE PO (09:17)
[2021-08-29] MEDS: PRENATAL VIT,CALC/IRON/FOLIC 1 TABLET 1 TAB PO (09:18)
[2021-08-29 09:19] VITALS: BP 134/94
[2021-08-29] MEDS: NIFEdipine 30 MG TAB ER 60 MG PO (09:19)
[2021-08-29] MEDS: LABETALOL 100 MG TABLET 400 MG PO (09:19)
[2021-08-29 11:03] VITALS: BP 146/98
[2021-08-29] MEDS: HYDRALAZINE 10 MG TABLET PO (11:03)
[2021-08-29 11:17] VITALS: BP 146/98; PULSE 86; RESP 18; TEMP 37.2
[2021-08-29 11:29] LABS: Alanine Aminotransferase 21 IU/L (<35); Albumin 3.9 g/dL (3.5-5.0); Albumin Globulin Ratio 1.3 (1.0-2.8); Alkaline Phosphatase 64 U/L (38-126); Aspartate Aminotransferase 32 IU/L (14-36); BUN Creatinine Ratio 17.6 (6-22); Bilirubin Total 0.3 mg/dL (0.2-1.3); Blood Urea Nitrogen 12 mg/dL (7-17); Calcium 10.2 mg/dL (8.4-10.2); Carbon Dioxide 27 mmol/L (22-32); Chloride 101 mmol/L (98-107); Estimated Glomerular Filt Rate > 60.0 mL/min (>60); Glucose 84 mg/dL (70-100); HEMOLYSIS < 15 (0-50); Potassium 3.9 mmol/L (3.4-5.1); Sodium 136 mmol/L (137-145); Total Protein 6.9 g/dL (6.3-8.2)
--- NOTE | 2021-08-29 13:57 | PM.OBDS.1 ---
Discharge Providers Provider Date of admission: 08/24/21 15:43 Discharge Date: 08/29/21 Primary care physician: Anastasiia Roberto MD Consults: 08/26/21 12:17 Consult to Roentgenology Teacher Routine Comment: Discharge provider: Anastasiia Roberto MD Summary Hospital Course Date Patient Seen: 08/29/21 Time Patient Seen: 08:00 Diagnoses: 38w2d gestation GBS negative Rh positive GDMA1 Pre-eclampsia with severe features Chorioamnionitis hemorrhage Hx of HSV Hospital Course: The pt presented for IOL due to gestational hypertension, shown to be pre-eclampsia after admission labs returned.? She received a single dose of IV Labetalol immediately at admission due to BPs elevated to severe range.? She was started on pitocin.? AROM was performed with clear fluid present.? She received an epidural for pain control.? The pts BPs then yaniv again to severe range, and she received additional doses of IV Labetalol and was also started on MgSO4.? Her BPs responded well.? Just as the pt reached the 2nd stage of labor, she developed a Tmax of 100.8F and FHT yaniv.? She was diagnosed with chorioamnionitis and was started on ampicillin and gentamicin.? She then had a spontaneous vaginal delivery of a viable baby boy.? A first degree laceration was then repaired that was bleeding heavily.? She had uterine atony that was controlled with bimanual massage and rectal cytotec.? The pt tolerated delivery well.? The MgSO4, Ampicillin, and Gentamicin were continued for 24hrs after delivery.? PPD #1 the pts blood pressures yaniv again, however not to severe range.? She was started on PO Labetalol.? PPD #2 her BPs again were elevated above goal, and the Labetalol dosing was increased with good BP control.? The pt was afebrile for 24hrs off antibiotics, and they were discontinued. Prior to discharge on PPD #3, the pts BPs again yaniv. She received PO Nifedipine XR, total of 60mg throughout the day, and her Labetalol was increased to 400mg BID. She also received an additional 20mg of IV Labetalol and total of 15mg IV Hydralazine due to difficulty getting her BPs < 150 systolic. She was then started on PO Hydralazine. At the time of discharge, her BPs had been stable for nearly 24hrs. She will continue on Labetalol 400mg BID, Nifedipine 60mg XR daily, and Hydralazine 10mg TID at home. She will f/u in 5 days in clinic for a BP check. The pt remained asymptomatic, with labs in normal range. At the time of discharge, the pt was voiding, ambulating, and passing flatus without difficulty. Her lochia was decreasing appropriately. She was with good latch and some formula supplementation due to low supply. Her pain was well controlled. Peripartum Data Infant Delivery Method: Natural Vaginal Laceration Description: Perineal - 1st Degree Episiotomy description: None Procedures: Spontaneous vaginal delivery [place] 1: Gender: Male Disposition of : home Discharge Diagnosis (1) Severe pre-eclampsia: Status: Acute (2) Chorioamnionitis: Status: Acute (3) Gestational diabetes: Status: Acute (4) hemorrhage: Status: Acute Status at Discharge Cognitive/behavioral status at discharge: oriented Functional status at discharge: independent ambulation Overall status at discharge: patient is back to baseline Time Spent with Patient Time attestation: Total time spent providing and/or coordinating discharge services: Objective Labs Result Diagrams: 08/28/21 10:20 08/29/21 11:05 Labs: Laboratory Results - last 24 hr 08/28/21 08/29/21 21:50 11:05 Sodium 136 L Potassium 3.7 3.9 Chloride 101 Carbon Dioxide 27 BUN 12 Creatinine 0.68 Estimated GFR > 60.0 BUN/Creatinine Ratio 17.6 Glucose 84 Calcium 10.2 Total Bilirubin 0.3 AST 32 ALT 21 Alkaline Phosphatase 64 Total Protein 6.9 Albumin 3.9 Globulin 3.0 Albumin/Globulin Ratio 1.3 Exam Vital Signs (past 8 hours): - 08/29/21 09:19 08/29/21 11:03 08/29/21 11:17 Temperature 99.0 F Pulse Rate 86 Respiratory Rate 18 Blood Pressure 134/94 H 146/98 H 146/98 H Narrative Exam Narrative: Gen: NAD, sitting comfortably in bed, appears well CV: RRR, no murmurs Resp: clear to auscultation bilaterally Abd: soft, appropriately tender, fundus firm and below the umbilicus, nondistended Ext: no edema Discharge Plan Discharge Plan Patient Disposition: Home Discharge orders & Medications Prescriptions: New ferrous sulfate 325 mg (65 mg iron) Tablet 325 mg PO DAILY Qty: 30 0RF labetalol 100 mg Tablet 400 mg PO BID Qty: 60 2RF nifedipine 30 mg Tablet Extended Release 24hr 60 mg PO DAILY Qty: 30 2RF hydralazine 10 mg Tablet 10 mg PO Q8H Qty: 90 2RF Continued prenat.vits,chelita,atn-jlks-vcnuh Tablet 1 tab PO DAILY 0RF acetaminophen [Tylenol] 325 mg capsule 650 mg PO Q6H PRN (Reason: Headache) 0RF acyclovir 400 mg tablet 400 mg PO .PRN 0RF Discontinued acyclovir 400 mg tablet 400 mg PO TID Qty: 90 2RF (DME) blood-glucose meter [Blood Glucose Monitoring] Kit See Rx Instructions .Route Qty: 1 0RF Rx Instructions: use to test blood glucose 4 times daily (DME) Blood Glucose Test Strip See Rx Instructions .Route Qty: 50 5RF Rx Instructions: use to test blood glucose 4 times daily (DME) lancets [Accu-Chek Softclix Lancets] Misc See Rx Instructions .Route Qty: 100 2RF Rx Instructions: use to test blood glucose 4 times daily Unisom (doxylamine) 25 mg tablet 12.5 mg PO BEDTIME PRN0RF Follow up/Referrals: Anastasiia Roberto MD [Primary Care Provider] - 09/03/21 12:15 pm (Call [phone] with any questions or concerns) Diet/Activity/Treatments Diet: Diet as Tolerated and Regular Skin/Wound/Dressing Care Report to your healthcare provider any signs of infection, such as:: chills, fever, increased pain and unusual drainage Visit Report/Discharge Packet Instructions: DI for Labor and Delivery, Vaginal Stand Alone Forms: Discharge: Care Visit Report Forms: Patient Portal/API, Stroke Signs & Symptoms Discharge Data Primary Care Provider: Anastasiia Roberto
== END 2021-08-29 12:45 | disposition home or self-care (01) | DRG 805 ==
PROVIDERS: Admitting Provider Family Medicine; PCP Family Medicine; Referring Provider Family Medicine; Visit Provider Family Medicine
DX: O13.4 Gestational [pregnancy-induced] hypertension without significant proteinuria, complicating childbirth (principal); O41.1230 Chorioamnionitis, third trimester, not applicable or unspecified; Z37.0 Single live birth; O98.32 Other infections with a predominantly sexual mode of transmission complicating childbirth; D62 Acute posthemorrhagic anemia; O14.14 Severe pre-eclampsia complicating childbirth; O24.420 Gestational diabetes mellitus in childbirth, diet controlled; A60.9 Anogenital herpesviral infection, unspecified; O99.02 Anemia complicating childbirth; O76 Abnormality in fetal heart rate and rhythm complicating labor and delivery; Z3A.38 38 weeks gestation of pregnancy; Z20.822 Contact with and (suspected) exposure to COVID-19
CPT/HCPCS: 01967; 36415; 59050; 59400; 80053; 82570; 83735; 84132; 84156; 85025; 85610; 85730; 86850; 86900; 86901; 87635; C9803; G0379; J0290; J0360; J2590; J3475; S0191

== ENCOUNTER → 2023-07-08 10:39 | Outpatient (CLI) | payer OTHER, SELFPAY ==
[2023-07-08 11:14] LABS: Miscellaneous to LabCorp NATERA KIT
[2023-07-08 11:26] LABS: Add Manual Diff / Slide Review NO; Basophils Absolute Auto 0 /uL (0-100); Basophils Percent Auto 0.2 % (0-2); Eosinophils Absolute Auto 0 /uL (0-450); Eosinophils Percent Auto 0.5 % (2-4); Hematocrit 38.5 % (36-46); Hemoglobin 13.2 g/dL (12.0-16.0); Lymphocytes Absolute Auto 1800 /uL (1100-4500); Lymphocytes Percent Auto 21.9 % (25-40); Mean Corpuscular HGB Conc 34.3 % (30-36); Mean Corpuscular Volume 81.9 fL (80-100); Monocytes Absolute Auto 400 /uL (0-900); Monocytes Percent Auto 4.7 % (3-14); Neutrophils Absolute Auto 6100 /uL (1500-7000); Neutrophils Percent Auto 72.7 % (50-75); Platelet Count 236 X10^3/uL (150-400); Red Cell Distribution Width 12.9 % (11.6-14.8); White Blood Cell Count 8.4 X10^3/uL (4.5-11.0)
[2023-07-08 11:33] LABS: Hemoglobin A1C% w Est Avg Glu 4.9 % (4.0-6.0)
[2023-07-08 11:38] LABS: Appearance Urine UA CLEAR; Bilirubin Urine UA NEGATIVE (NEGATIVE); Color Urine UA YELLOW; Glucose Urine UA NEGATIVE (Negative); Ketones Urine UA NEGATIVE (NEGATIVE); Leukocyte Esterase Urine UA NEGATIVE (NEGATIVE); Nitrite Urine UA NEGATIVE (Negative); Occult Blood Urine UA NEGATIVE (Negative); Protein Urine UA NEGATIVE (Negative); Specific Gravity Urine UA 1.015 (1.000-1.035); Urobilinogen Urine UA 0.2 E.U./dL (0.2)
[2023-07-08 11:40] LABS: Alanine Aminotransferase 22 IU/L (<35); Albumin 4.2 g/dL (3.5-5.0); Albumin Globulin Ratio 1.2 (1.0-2.8); Alkaline Phosphatase 47 U/L (38-126); Aspartate Aminotransferase 23 IU/L (14-36); BUN Creatinine Ratio 17.4 (6-22); Bilirubin Total 0.3 mg/dL (0.2-1.3); Blood Urea Nitrogen 8 mg/dL (7-17); Calcium 9.9 mg/dL (8.4-10.2); Carbon Dioxide 22 mmol/L (22-32); Chloride 102 mmol/L (98-107); Estimated Glomerular Filt Rate > 60 mL/min (>60); Globulin 3.4 g/dL (1.7-4.1); Glucose 126 mg/dL (70-100); HEMOLYSIS < 15 (0-50); Sodium 133 mmol/L (137-145); Total Protein 7.6 g/dL (6.3-8.2)
[2023-07-08 12:04] LABS: Creatinine Urine Random 68.2 mg/dL; Protein (Total) Urine Random 13 mg/dL (0-12); Protein Creatinine Ratio Urine 0.19 GRAM/24H
[2023-07-08 12:11] LABS: Hepatitis B Surface Antigen NEGATIVE s/c (NEGATIVE)
[2023-07-08 12:22] LABS: HCG Quantitative /Beta subunit 119280 mIU/mL
[2023-07-08 12:31] LABS: Rubella Antibody IgG 96.1 IU/mL (>15)
[2023-07-08 12:52] LABS: HIV 1 & 2 Ab/Ag 4th Gen Combo NEGATIVE (NEGATIVE); Hep C Virus Ab w/Reflex Quant NEGATIVE s/c (NEGATIVE)
[2023-07-08 13:31] LABS: GTT (PREG) 1 Hour PP 50gm Dose 154 mg/dL (76-139)
[2023-07-09 05:24] LABS: RPR Screen Non Reactive (Non Reactive)
[2023-07-09 09:46] LABS: Varicella IgG Antibody 3135 index (Immune >165)
== END ==
PROVIDERS: Obstetrics & Gynecology; Referring Provider Family Medicine; Visit Provider Family Medicine
DX: O09.299 Supervision of pregnancy with other poor reproductive or obstetric history, unspecified trimester (principal); Z34.81 Encounter for supervision of other normal pregnancy, first trimester; Z34.90 Encounter for supervision of normal pregnancy, unspecified, unspecified trimester; Z86.32 Personal history of gestational diabetes; Z87.59 Personal history of other complications of pregnancy, childbirth and the puerperium; Z13.79 Encounter for other screening for genetic and chromosomal anomalies; Z3A.09 9 weeks gestation of pregnancy; Z31.438 Encounter for other genetic testing of female for procreative management
CPT/HCPCS: 36415; 80053; 80055; 81003; 82570; 82950; 83036; 84156; 84550; 84702; 86787; 86803; 86850; 86900; 86901; 87086; 87389

== ENCOUNTER → 2023-07-24 07:33 | Outpatient (CLI) | payer OTHER, SELFPAY ==
[2023-07-24 09:07] LABS: Glucose Fasting Gestational 87 mg/dL (76-95)
[2023-07-24 09:41] LABS: Glucose 1 Hour Gest 134 mg/dL (76-180)
[2023-07-24 10:56] LABS: Glucose 2 Hour Gest 170 mg/dL (76-155)
[2023-07-24 12:12] LABS: Glucose Tol Interp,Gestational INTERPRETATION
[2023-07-24 12:24] LABS: Glucose 3 Hour Gest 83 mg/dL (76-140)
== END ==
PROVIDERS: Referring Provider Family Medicine; Visit Provider Family Medicine
DX: O09.299 Supervision of pregnancy with other poor reproductive or obstetric history, unspecified trimester (principal); Z86.32 Personal history of gestational diabetes; Z34.90 Encounter for supervision of normal pregnancy, unspecified, unspecified trimester
CPT/HCPCS: 36415; 82951; 82952

== ENCOUNTER → 2023-09-18 08:28 | Outpatient (CLI) | payer OTHER, SELFPAY ==
--- NOTE | 2023-09-18 08:29 | DI.US.S_ITS ---
PROCEDURE: US OB >= 14 WEEKS FETUS INDICATIONS: ANATOMY OUTSIDE/PRIOR DATING DATA: Last menstrual period (LMP): 04/21/2023. LMP-based estimated date of delivery (CLOVIS): 01/26/2024. First dating scan (date and location): 07/01/2023. Estimated date of delivery (CLOVIS) from first dating scan: 02/04/2024. The calculations are made using the ultrasound CLOVIS of 02/04/2024. TECHNIQUE: Real-time scanning was performed of the fetus, with image documentation and biometric measurements. Endovaginal scanning: Not performed COMPARISON: [facility], OB >= 14 WEEKS FETUS, 04/20/2021, 13:31. FINDINGS: General: A single living intrauterine gestation is present. Presentation: Vertex. Placenta: Placental position is posterior , with previa. Amniotic fluid index: 10.8 cm, normal range is 5-24 cm. Single deepest vertical pocket is 2.9 cm. heart rate: 155 beats per minute. Maternal cervical canal: 3.5 cm long. Normal lower limit is 2.5 cm. biometrics: Biparietal diameter: 4.8 cm, 20 weeks 3 days Head circumference: 17.8 cm, 20 weeks 2 days Abdominal circumference: 14.9 cm, 20 weeks 1 day Femur length: 3.3 cm, 20 weeks 2 days Clinically estimated gestational age: 20 weeks 1 day Composite gestational age from present scan: 20 weeks 2 days Estimated weight and percentile: 343 g, 53rd percentile Anatomic survey: Neuro: Ventricles are non-dilated at less than 10 mm. Cisterna magna is normal at 3-11 mm. Cerebellum is normal in size and morphology. Nuchal skin fold: Normal at less than 6 mm between 14-21 weeks gestational age. Face: Nose and lips are normal, facial profile is not well seen. Spine: No evidence for spina bifida. Heart: 4-chambered heart is present, with normal ventricular outflow tracts. Diaphragm: Diaphragm is intact. Stomach: Left-sided stomach is present. Kidneys: No hydronephrosis. Normal is less than 5 mm in 2nd trimester, less than 7 mm in 3rd trimester. Cord: 3-vessel cord has orthotopic insertion. Bladder: Normal in size. Extremities: All 4 extremities identified. IMPRESSION: 1. Single live intrauterine consistent with 20 weeks and 2 days. 2. Placenta previa is present. Recommend attention on follow-up exams. 3. The facial profile is not well seen and can be reassessed on follow-up. Otherwise, normal anatomic survey. We strive to produce accurate, complete, and clear reports of imaging services. To assist us in improving patient care, this report was composed using standard report templates and voice recognition software. Therefore, it may contain abnormal punctuation, insertions and/or omissions. Occasional wrong-word or sound-alike substitutions may occur. Though we review the report and make efforts to correct it, we do recommend that the report be read carefully in proper context to recognize any text inaccuracies. Dictated by: Rick Pavon M.D. on 09/18/2023 at 12:31 Approved by: Rick Pavon M.D. on 09/18/2023 at 12:35
== END ==
PROVIDERS: Referring Provider Family Medicine; Visit Provider Family Medicine
DX: O44.02 Complete placenta previa NOS or without hemorrhage, second trimester (principal); Z3A.20 20 weeks gestation of pregnancy
CPT/HCPCS: 76811; 76817

== ENCOUNTER → 2023-10-17 07:28 | Outpatient (CLI) | payer OTHER, SELFPAY ==
--- NOTE | 2023-10-17 07:30 | DI.US.S_ITS ---
PROCEDURE: US OB FOLLOW UP INDICATIONS: FOLLOW UP PROFILE AND PLACENTA PREVIA OUTSIDE/PRIOR DATING DATA: Last menstrual period (LMP): 04/21/2023 LMP-based estimated date of delivery (CLOVIS): 01/26/2024 First dating scan (date and location): 07/01/2023 Estimated date of delivery (CLOVIS) from first dating scan: 02/04/2024 The calculations are made using the ultrasound CLOVIS of 02/04/2024. TECHNIQUE: Real-time scanning was performed of the fetus, with image documentation. Endovaginal scanning: Performed for better visualization of the cervix and lower placental margin. COMPARISON: [facility], US, OB >= 14 WEEKS FETUS, 09/18/2023, 8:36. FINDINGS: A single living intrauterine gestation is present. Presentation: Vertex Placenta: Placental position is posterior, without previa. Amniotic fluid index: 12.2 cm, normal range is 5-24 cm. Single deepest vertical pocket is 4.1 cm. heart rate: 143 beats per minute. Maternal cervical canal: 5.1 cm long. Normal lower limit is 2.5 cm. Estimated gestational age from initial scan: 24 weeks 2 days facial profile appears normal. IMPRESSION: 1. Single live intrauterine . 2. facial profile appears normal. 3. Placenta previa has resolved. 4. Amniotic fluid index is within normal limits. Approved by: Liban Joseph M.D. on 10/17/2023 at 10:38
[2023-10-17 11:03] LABS: Add Manual Diff / Slide Review NO; Basophils Absolute Auto 0 /uL (0-100); Basophils Percent Auto 0.2 % (0-2); Eosinophils Absolute Auto 100 /uL (0-450); Eosinophils Percent Auto 0.7 % (2-4); Hematocrit 33.8 % (36-46); Hemoglobin 11.5 g/dL (12.0-16.0); Lymphocytes Absolute Auto 1300 /uL (1100-4500); Lymphocytes Percent Auto 18.2 % (25-40); Mean Corpuscular HGB Conc 33.9 % (30-36); Mean Corpuscular Hemoglobin 28.3 PG (26-34); Mean Corpuscular Volume 83.3 fL (80-100); Monocytes Absolute Auto 600 /uL (0-900); Monocytes Percent Auto 7.5 % (3-14); Neutrophils Absolute Auto 5400 /uL (1500-7000); Neutrophils Percent Auto 73.4 % (50-75); Platelet Count 193 X10^3/uL (150-400); Red Blood Cell Count 4.06 X10^6/uL (4.0-5.2); Red Cell Distribution Width 13.5 % (11.6-14.8); White Blood Cell Count 7.4 X10^3/uL (4.5-11.0)
[2023-10-17 11:20] LABS: Alanine Aminotransferase 12 IU/L (<35); Albumin 3.9 g/dL (3.5-5.0); Albumin Globulin Ratio 1.2 (1.0-2.8); Alkaline Phosphatase 39 U/L (38-126); Aspartate Aminotransferase 17 IU/L (14-36); BUN Creatinine Ratio 11.1 (6-22); Bilirubin Total 0.3 mg/dL (0.2-1.3); Blood Urea Nitrogen 7 mg/dL (7-17); Calcium 10.5 mg/dL (8.4-10.2); Carbon Dioxide 26 mmol/L (22-32); Chloride 103 mmol/L (98-107); Estimated Glomerular Filt Rate > 60 mL/min (>60); Globulin 3.3 g/dL (1.7-4.1); Glucose 95 mg/dL (70-100); HEMOLYSIS < 15 (0-50); Potassium 4.2 mmol/L (3.4-5.1); Sodium 136 mmol/L (137-145); Total Protein 7.2 g/dL (6.3-8.2)
[2023-10-17 12:12] LABS: Creatinine Urine Random 27.1 mg/dL; Protein (Total) Urine Random 19 mg/dL (0-12)
== END ==
PROVIDERS: Referring Provider Family Medicine; Visit Provider Family Medicine
DX: O44.02 Complete placenta previa NOS or without hemorrhage, second trimester (principal); O09.292 Supervision of pregnancy with other poor reproductive or obstetric history, second trimester; Z86.32 Personal history of gestational diabetes; Z3A.24 24 weeks gestation of pregnancy
CPT/HCPCS: 36415; 76816; 76817; 80053; 82570; 84156; 85025

== ENCOUNTER 2023-10-22 10:57 | Outpatient (CLI) | payer OTHER, SELFPAY ==
--- NOTE | 2023-10-22 11:45 | P.TNLD_ITS ---
Visit Information Visit Information Date of evaluation: 10/22/23 Primary OB Provider: Anastasiia Roberto Comments/Additional reasons for admission: 33yo at 25w0d here due to new diagnosis of pre-eclampsia. Pt denies any ongoing headaches that aren't easily resolved with Tylenol, vision changes, RUQ pain, acutely worsening edema. She is feeling her baby move regularly. No LOF, vaginal bleeding, contractions. [facility] Medical History (Updated 10/22/23 @ 11:48 by Anastasiia Roberto MD) Irregular menstrual cycle (~2002) hemorrhage Gestational diabetes Chorioamnionitis Severe pre-eclampsia SAB (spontaneous ) (~10/21/20) Acne (~2002) Frequent headaches (~11/2020) Genital herpes (~2013) Surgical History (Updated 01/09/21 @ 12:46 by Kelli Hairston RN) [place] teeth extracted (~2015) Family History (Updated 08/01/23 @ 21:41 by Chana Montalvo) Mother Diabetes mellitus Hypertension Hyperlipidemia Type 2 diabetes mellitus Rheumatoid arthritis Father Hypertension CVA (cerebral vascular accident) Diabetes mellitus Hyperlipidemia Grandmother Diabetes mellitus Grandfather Cancer Lung cancer Heavy smoker Grandmother Cancer Colon cancer Grandfather Cancer Lung cancer Heavy smoker Brother Obesity Hypertension Rheumatoid arthritis Family/Other Diabetes mellitus Social History marital status: number of children: 1 household members: spouse and children lives independently: Yes caregiver/support person: Yes housing: house pets and animals: Yes (Dogs x 2) education level: college occupational status: employed 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 special donaldo needs: No travel history: recent seatbelt use: always helmet use: Yes water heater temp set < 120 deg: Yes working smoke detector in home: Yes fire extinguisher in home: Yes carbon monox detector in home: Yes firearms in home: No do you feel safe at home: Yes Smoking Status: Never smoker second hand exposure: No alcohol intake: former substance use type: does not use during the past year weight has: other well-balanced diet: about half the time daily servings fruits/ve-4 caffeine: Yes (AM cup coffee) Type(s) of exercise: none Evaluation Evaluation Baseline heart rate: 145 Variability: Moderate (11-25) monitor accelerations: Present Monitor Decelerations: Absent Category of Tracing: Reactive Diagnosis, Plan/Disposition Final Diagnosis (1) 25 weeks gestation of : Status: Acute (2) Preeclampsia: Status: Acute (3) Hx of pre-eclampsia in prior , currently : Status: Acute Plan/Disposition Plan: 33yo at 25w0d here for new diagnosis of pre-eclampsia. Labs drawn and pending, pr/cr elevated previously. Started on PO Labetalol from clinic today. Growth scan after NST. NST reactive. MFM referral previously placed. Will f/u in clinic in 1 week with BP log. OB Disposition: home
[2023-10-22 11:48] LABS: Add Manual Diff / Slide Review NO; Basophils Absolute Auto 0 /uL (0-100); Basophils Percent Auto 0.3 % (0-2); Eosinophils Absolute Auto 0 /uL (0-450); Eosinophils Percent Auto 0.6 % (2-4); Hematocrit 33.7 % (36-46); Hemoglobin 11.5 g/dL (12.0-16.0); Lymphocytes Absolute Auto 1300 /uL (1100-4500); Lymphocytes Percent Auto 19.8 % (25-40); Mean Corpuscular HGB Conc 34.1 % (30-36); Mean Corpuscular Hemoglobin 27.6 PG (26-34); Mean Corpuscular Volume 80.9 fL (80-100); Monocytes Absolute Auto 400 /uL (0-900); Monocytes Percent Auto 6.1 % (3-14); Neutrophils Absolute Auto 4900 /uL (1500-7000); Neutrophils Percent Auto 73.2 % (50-75); Platelet Count 195 X10^3/uL (150-400); Red Blood Cell Count 4.17 X10^6/uL (4.0-5.2); Red Cell Distribution Width 13.4 % (11.6-14.8); White Blood Cell Count 6.7 X10^3/uL (4.5-11.0)
--- NOTE | 2023-10-22 11:59 | DI.US.S_ITS ---
PROCEDURE: US OB LIMITED INDICATIONS: growth-preeclampsia OUTSIDE/PRIOR DATING DATA: Last menstrual period (LMP): 04/21/2023. LMP-based estimated date of delivery (CLOVIS): The 01/26/2020. First dating scan (date and location): 07/01/2023. Estimated date of delivery (CLOVIS) from first dating scan: 02/04/2024. The calculations are made using the ultrasound CLOVIS of 02/04/2024. TECHNIQUE: Real-time scanning was performed of the fetus, with image documentation. COMPARISON: [facility], OB >= 14 WEEKS FETUS, 09/18/2023, 8:36. [facility], OB FOLLOW UP, 10/17/2023, 7:42. FINDINGS: A single live intrauterine gestation is present. Presentation: Vertex. Placenta: Placental position is posterior, without previa. Amniotic fluid index: 12.4 cm, normal range is 5-24 cm. Single deepest vertical pocket is 3.7 cm. heart rate: 162 beats per minute. Maternal cervical canal: 3.6 cm long. Normal lower limit is 2.5 cm. Clinically estimated gestational age: 25 weeks 0 days Estimated gestational age from initial scan: 25 weeks 5 days Biometric measurements: Biparietal diameter: 6.2 cm equals 25 weeks 0 days Head circumference: 22.8 cm equals 24 weeks 5 days Abdominal circumference: 21.3 cm equals 25 weeks 6 days Femur length: 4.7 cm equals 25 weeks 6 days Estimated weight and percentile: 837 g, 70th percentile IMPRESSION: Normal interval growth. Normal BRANDT. Dictated by: Morgan Ellis M.D. on 10/22/2023 at 12:45 Approved by: Morgan Ellis M.D. on 10/22/2023 at 12:48
[2023-10-22 12:14] LABS: Alanine Aminotransferase 12 IU/L (<35); Albumin 3.8 g/dL (3.5-5.0); Albumin Globulin Ratio 1.3 (1.0-2.8); Alkaline Phosphatase 39 U/L (38-126); Aspartate Aminotransferase 18 IU/L (14-36); BUN Creatinine Ratio 13.2 (6-22); Bilirubin Total 0.3 mg/dL (0.2-1.3); Blood Urea Nitrogen 5 mg/dL (7-17); Calcium 9.9 mg/dL (8.4-10.2); Carbon Dioxide 18 mmol/L (22-32); Chloride 106 mmol/L (98-107); Estimated Glomerular Filt Rate > 60 mL/min (>60); Glucose 82 mg/dL (70-100); HEMOLYSIS < 15 (0-50); Potassium 3.7 mmol/L (3.4-5.1); Sodium 133 mmol/L (137-145); Total Protein 6.8 g/dL (6.3-8.2)
== END 2023-10-22 11:48 | disposition home or self-care (01) ==
LOC: LABOR 11:12 → OB 10-23 08:04
PROVIDERS: Referring Provider Family Medicine; Visit Provider Family Medicine
DX: O14.92 Unspecified pre-eclampsia, second trimester (principal); Z3A.25 25 weeks gestation of pregnancy
CPT/HCPCS: 59025; 76815; 80053; 85025; G0378; G0379

== ENCOUNTER → 2023-10-31 10:41 | Outpatient (CLI) | payer OTHER, SELFPAY ==
[2023-10-31 12:33] LABS: Add Manual Diff / Slide Review NO; Basophils Absolute Auto 0 /uL (0-100); Basophils Percent Auto 0.4 % (0-2); Eosinophils Absolute Auto 100 /uL (0-450); Eosinophils Percent Auto 1.3 % (2-4); Hematocrit 31.6 % (36-46); Lymphocytes Absolute Auto 1100 /uL (1100-4500); Lymphocytes Percent Auto 17.2 % (25-40); Mean Corpuscular HGB Conc 34.8 % (30-36); Mean Corpuscular Hemoglobin 28.7 PG (26-34); Mean Corpuscular Volume 82.5 fL (80-100); Monocytes Absolute Auto 500 /uL (0-900); Monocytes Percent Auto 7.8 % (3-14); Neutrophils Absolute Auto 4900 /uL (1500-7000); Neutrophils Percent Auto 73.3 % (50-75); Platelet Count 184 X10^3/uL (150-400); Red Blood Cell Count 3.83 X10^6/uL (4.0-5.2); Red Cell Distribution Width 13.7 % (11.6-14.8); White Blood Cell Count 6.6 X10^3/uL (4.5-11.0)
[2023-10-31 12:52] LABS: Alanine Aminotransferase 10 IU/L (<35); Albumin 3.8 g/dL (3.5-5.0); Albumin Globulin Ratio 1.2 (1.0-2.8); Alkaline Phosphatase 41 U/L (38-126); Aspartate Aminotransferase 17 IU/L (14-36); BUN Creatinine Ratio 9.1 (6-22); Bilirubin Total 0.3 mg/dL (0.2-1.3); Blood Urea Nitrogen 5 mg/dL (7-17); Calcium 10.2 mg/dL (8.4-10.2); Carbon Dioxide 25 mmol/L (22-32); Chloride 104 mmol/L (98-107); Estimated Glomerular Filt Rate > 60 mL/min (>60); Globulin 3.1 g/dL (1.7-4.1); Glucose 89 mg/dL (70-100); HEMOLYSIS < 15 (0-50); Potassium 3.5 mmol/L (3.4-5.1); Sodium 135 mmol/L (137-145); Total Protein 6.9 g/dL (6.3-8.2)
== END ==
PROVIDERS: Referring Provider Family Medicine; Visit Provider Family Medicine
DX: Z34.82 Encounter for supervision of other normal pregnancy, second trimester (principal); Z3A.26 26 weeks gestation of pregnancy
CPT/HCPCS: 36415; 80053; 85025

== ENCOUNTER → 2023-11-03 07:48 | Outpatient (CLI) | payer OTHER, SELFPAY ==
[2023-11-03 09:38] LABS: Glucose Fasting 84 mg/dL (70-100)
[2023-11-03 10:44] LABS: Glucose 1 Hour 183 mg/dL (70-170)
[2023-11-03 11:05] LABS: Glucose 2 Hour 173 mg/dL (70-140)
[2023-11-03 11:18] LABS: Glucose Tol Interpretation INTERPRETATION
[2023-11-03 12:24] LABS: Glucose 3 Hour 83 mg/dL (70-115)
== END ==
PROVIDERS: Referring Provider Family Medicine; Visit Provider Family Medicine
DX: O09.299 Supervision of pregnancy with other poor reproductive or obstetric history, unspecified trimester (principal); Z86.32 Personal history of gestational diabetes
CPT/HCPCS: 82951; 82952

== ENCOUNTER → 2023-11-11 08:52 | Outpatient (CLI) | payer OTHER, SELFPAY ==
--- NOTE | 2023-11-12 09:44 | DIAB.GDA ---
Initial Gestational Diabetes Assessment Name: Steph Pham Date: 11/11/23 Time: 905-950a Dx: Gestational Diabetes Provider: Felisa CLOVIS: 02/04/24 Weeks: 27-28 Steph presents today for initial GDM visit. She is familiar to this RD/CDCES as we worked together during her last in 2020. H/o GDM with 2020 . Son was born 6#15oz. Reports in range HgA1c 1 year after last . Current diet moderate to low in carb. Some meals/snacks low in protein. Measuring BP at home. Some high Na food choices, ie zero sugar gatorade. States BP at home often 130s over 80s. Tx with labetalol. PMH of preeclampsia. Working with . This she is having a girl! Plan for 37 week induction Diet Recall: 530a: coffee latte, two small chana rolls or one slice toast with nutells (30-45g CHO) 11a: 1/2c rice, pro and veg 5p: 1/2-1c rice with pro/veg sn: nothing or yoplait yogurt with keto granola (30g ) 730p: 2/3c ice cream (30g CHO) or popcorn (20-30g CHO) Beverages; 80oz water, zero sug gatorade. Anthropometrics: Ht: 64 Wt: 172# OB visit 10/31 Prepregnancy wt: 148# Physical Activity: walking 3-5x per week for 60 min Self-Monitoring Blood Glucose: No SMBG for review today. Reports checking FBG and 2 hour pc. States all FBG under 90 with one exceptio of 110mg/dl. All 2 hr pc under 120 with exception to one reading after noodles at 131 mg/dl. Diabetes Medications: None Pertinent Labs: screen 154 H (07/2023) OGTT: 87, 134, 170 H, 83 (07/2023) Repeat OGTT: 84, 183H, 173, 83 (10/2023) Nutrition Rx: Carbohydrates: Meal: 45-g lunch and 45-60g dinner; 30g breakfast Snack: 15-30g Nutrition Diagnosis: Altered nutrition related lab value r/t GDM dx aeb recent OGTT Inconsistent protein intake r/t nutrition knowledge deficit aeb pt report and diet recall Excessive simple carbohydrate intake r/t cravings aeb pt report and diet recall Intervention: This participant was very receptive. Provided appropriate educational handouts. Discussed the following topics: Brief GDM pathophysiology and impact of hyperglycemia on mom and baby review Risk for T2DM for mom and baby in the future review Ways to reduce risk T2DM Plate Method, meal timing, carb counting, pairing macronutrients and spreading out CHO for better BG management Blood glucose goals (FBG: <95 and 2 hour <120 mg/dL); importance of checking 4x per day (FBG and pc) Impact of macronutrients on blood glucose Recommended servings for carbohydrates at meals and snacks Yogurt options with lower sugar and higher pro Brainstormed appropriate meal plan based on her food preferences Role of physical activity and following provider guidelines for safety Goals: Add protein to meals/snacks consistently Add 1p pro snack Switch yogurt option Bring BG next visit Follow-up: CHERIE TOLEDO follow-up in two weeks 1:1 and one week BG check over messaging Thuy Fernandez RDN, [place] Certified Diabetes Care and Pilot Plant Technician T: [phone] F: [phone] [email or web address] Thank you for this referral
== END ==
PROVIDERS: Referring Provider Family Medicine; Visit Provider Family Medicine
DX: O24.419 Gestational diabetes mellitus in pregnancy, unspecified control (principal); Z3A.27 27 weeks gestation of pregnancy; Z71.3 Dietary counseling and surveillance
CPT/HCPCS: 97802

== ENCOUNTER → 2023-11-14 10:18 | Outpatient (CLI) | payer OTHER, SELFPAY ==
[2023-11-14 11:40] LABS: Add Manual Diff / Slide Review NO; Basophils Absolute Auto 0 /uL (0-100); Basophils Percent Auto 0.3 % (0-2); Eosinophils Absolute Auto 100 /uL (0-450); Hematocrit 33.6 % (36-46); Hemoglobin 11.6 g/dL (12.0-16.0); Lymphocytes Absolute Auto 1700 /uL (1100-4500); Lymphocytes Percent Auto 21.8 % (25-40); Mean Corpuscular HGB Conc 34.6 % (30-36); Mean Corpuscular Hemoglobin 28.2 PG (26-34); Mean Corpuscular Volume 81.6 fL (80-100); Monocytes Absolute Auto 600 /uL (0-900); Monocytes Percent Auto 7.7 % (3-14); Neutrophils Absolute Auto 5300 /uL (1500-7000); Neutrophils Percent Auto 69.2 % (50-75); Platelet Count 193 X10^3/uL (150-400); Red Blood Cell Count 4.12 X10^6/uL (4.0-5.2); Red Cell Distribution Width 13.6 % (11.6-14.8); White Blood Cell Count 7.6 X10^3/uL (4.5-11.0)
[2023-11-14 11:58] LABS: Alanine Aminotransferase 10 IU/L (<35); Albumin 4.1 g/dL (3.5-5.0); Albumin Globulin Ratio 1.4 (1.0-2.8); Alkaline Phosphatase 46 U/L (38-126); Aspartate Aminotransferase 16 IU/L (14-36); Bilirubin Total 0.5 mg/dL (0.2-1.3); Blood Urea Nitrogen 6 mg/dL (7-17); Calcium 9.7 mg/dL (8.4-10.2); Carbon Dioxide 22 mmol/L (22-32); Chloride 104 mmol/L (98-107); Estimated Glomerular Filt Rate > 60 mL/min (>60); Glucose 79 mg/dL (70-100); HEMOLYSIS < 15 (0-50); Potassium 4.2 mmol/L (3.4-5.1); Sodium 136 mmol/L (137-145); Total Protein 7.1 g/dL (6.3-8.2)
[2023-11-14 12:09] LABS: Creatinine Urine Random 75.8 mg/dL; Protein (Total) Urine Random 17 mg/dL (0-12); Protein Creatinine Ratio Urine 0.22 GRAM/24H
== END ==
LOC: LAB 10:19
PROVIDERS: Referring Provider Family Medicine; Visit Provider Family Medicine
DX: O14.92 Unspecified pre-eclampsia, second trimester (principal); O14.90 Unspecified pre-eclampsia, unspecified trimester
CPT/HCPCS: 36415; 80053; 82570; 84156; 85025

== ENCOUNTER → 2023-11-28 09:16 | Outpatient (CLI) | payer OTHER, SELFPAY ==
--- NOTE | 2023-11-28 10:24 | DIAB.GDFU ---
Follow-up Gestational Diabetes Assessment Name: Steph Pham Date: 11/28/23 Time: 935-10a Dx: Gestational Diabetes Provider: Felisa CLOVIS: 02/04/24 Weeks:30 Steph presents today for follow-up GDM visit. Continues to be conscious of food portions, keeps rice to 1/2-1c per meal. BG well managed. Could likely lean more toward 1c at lunch and dinner for rice to be sure her and baby are getting adequate nutrients. Has questions about chocolate portions. No longer having sweets for breakfast. Switched to a lower carb yogurt, activia. Snacking on more protein options, ie nuts and cheese. Feeling satisfied with meals though some early satiety, which is expected in later part of . BP doing well on higher labetalol dose, 12-130/60-90. Sees Felisa today. Diet Recall: 530a: coffee, 2 bread with PB 830a: nuts or cheese 10a: rice with meat and veg 5p same as lunch 7-8p: 2/3c ice cream Beverages; 4-5x 24oz water, zero sugar gatorade less often. Anthropometrics: Ht: 64 Wt: 172# OB visit 10/31, no wt today Prepregnancy wt: 148# Physical Activity: walking 5x per week for 15-30 min Self-Monitoring Blood Glucose: Checking FBG and 2 hr pc. BG well managed. Some pc readings under 100 indicating room for a little more nutrition. Date Pre Post Pre Post Pre Post HS 11/22 95 95 116 95 11/23 94 99 108 113 11/24 88 90 85 91 11/25 86 83 98 122 11/26 88 98 98 104 11/27 91 81 107 103 11/28 93 Diabetes Medications: None Pertinent Labs: screen 154 H (07/2023) OGTT: 87, 134, 170 H, 83 (07/2023) Repeat OGTT: 84, 183H, 173, 83 (10/2023) Nutrition Rx: Carbohydrates: Meal: 45-g lunch and 45-60g dinner; 30g breakfast Snack: 15-30g Nutrition Diagnosis: Altered nutrition related lab value r/t GDM dx aeb recent OGTT Inconsistent protein intake r/t nutrition knowledge deficit aeb pt report and diet recall - improved Excessive simple carbohydrate intake r/t cravings aeb pt report and diet recall - improved Intervention: This participant was very receptive. Provided appropriate educational handouts. Discussed the following topics: Recent blood sugar results and impact of food and hormones Review of macronutrient recommendations during Label reading for net carbs Recs for snacks or occasional sweets if craving Physical activity plan/progress Goals: Add protein to meals/snacks consistently- met Add 1p pro snack- (830am instead) Switch yogurt option- met Bring BG next visit - met Aim for 1c rice at lunch and dinner- new If having a sweet, keep to 15g CHO or less- new Follow-up: CHERIE TOLEDO follow-up in three weeks. Steph is doing well managing GDM with lifestyle. Will schedule a three week f/u to review BG and discuss BG recs. Seeing OB now q 2 weeks. Plans for induction at 37 weeks. Encouraged her to call or message prior to our next visit prn. She agreed. Thuy Fernandez RDN, [facility] Certified Diabetes Care and Cra Officer T: [phone] F: [phone] [email or web address] Thank you for this referral
== END ==
PROVIDERS: Referring Provider Family Medicine; Visit Provider Family Medicine
DX: O24.419 Gestational diabetes mellitus in pregnancy, unspecified control (principal); Z3A.30 30 weeks gestation of pregnancy; Z71.3 Dietary counseling and surveillance
CPT/HCPCS: 97803

== ENCOUNTER 2023-12-12 11:58 | Outpatient (CLI) | payer OTHER, SELFPAY ==
--- NOTE | 2023-12-12 12:50 | PM.OBTRLD ---
Visit Information Visit Information Date of evaluation: 12/12/23 Primary OB Provider: Anastasiia Roberto Comments/Additional reasons for admission: 33yo at 32w2d here for NST for gestational HTN. Pt is asymptomatic. [facility] Medical History (Updated 12/12/23 @ 10:02 by Anastasiia Roberto MD) Gestational diabetes Irregular menstrual cycle (~2002) hemorrhage Chorioamnionitis Severe pre-eclampsia SAB (spontaneous ) (~10/21/20) Acne (~2002) Frequent headaches (~11/2020) Genital herpes (~2013) Surgical History (Updated 01/09/21 @ 12:46 by Kelli Hairston RN) [place] teeth extracted (~2015) Family History (Updated 08/01/23 @ 21:41 by Chana Montalvo) Mother Diabetes mellitus Hypertension Hyperlipidemia Type 2 diabetes mellitus Rheumatoid arthritis Father Hypertension CVA (cerebral vascular accident) Diabetes mellitus Hyperlipidemia Grandmother Diabetes mellitus Grandfather Cancer Lung cancer Heavy smoker Grandmother Cancer Colon cancer Grandfather Cancer Lung cancer Heavy smoker Brother Obesity Hypertension Rheumatoid arthritis Family/Other Diabetes mellitus Social History marital status: number of children: 1 household members: spouse and children lives independently: Yes caregiver/support person: Yes housing: house pets and animals: Yes (Dogs x 2) education level: college occupational status: employed 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 travel history: recent seatbelt use: always helmet use: Yes water heater temp set < 120 deg: Yes working smoke detector in home: Yes fire extinguisher in home: Yes carbon monox detector in home: Yes firearms in home: No do you feel safe at home: Yes Smoking Status: Never smoker second hand exposure: No alcohol intake: former substance use type: does not use during the past year weight has: other well-balanced diet: about half the time daily servings fruits/ve-4 caffeine: Yes (AM cup coffee) Type(s) of exercise: none Objective Labs 12/12/23 12:22 12/12/23 12:22 Evaluation Evaluation Baseline heart rate: 130 Variability: Moderate (11-25) monitor accelerations: Present Monitor Decelerations: Absent Category of Tracing: Reactive Diagnosis, Plan/Disposition Final Diagnosis (1) Gestational hypertension: Status: Acute Plan/Disposition Plan: 33yo at 32w2d here for NST for gestational HTN. NST reactive. Labs collected and pending. Labetalol dosing increased today. Continue weekly NST. OB Disposition: home
[2023-12-12 13:00] LABS: Add Manual Diff / Slide Review NO; Basophils Absolute Auto 0 /uL (0-100); Basophils Percent Auto 0.3 % (0-2); Eosinophils Absolute Auto 100 /uL (0-450); Eosinophils Percent Auto 1.2 % (2-4); Hematocrit 31.7 % (36-46); Hemoglobin 11.1 g/dL (12.0-16.0); Lymphocytes Absolute Auto 1300 /uL (1100-4500); Lymphocytes Percent Auto 22.3 % (25-40); Mean Corpuscular HGB Conc 34.9 % (30-36); Mean Corpuscular Hemoglobin 28.4 PG (26-34); Mean Corpuscular Volume 81.2 fL (80-100); Monocytes Absolute Auto 500 /uL (0-900); Neutrophils Absolute Auto 3900 /uL (1500-7000); Neutrophils Percent Auto 67.2 % (50-75); Platelet Count 182 X10^3/uL (150-400); Red Blood Cell Count 3.91 X10^6/uL (4.0-5.2); Red Cell Distribution Width 13.8 % (11.6-14.8); White Blood Cell Count 5.8 X10^3/uL (4.5-11.0)
[2023-12-12 13:39] LABS: Alanine Aminotransferase 13 IU/L (<35); Albumin 3.8 g/dL (3.5-5.0); Albumin Globulin Ratio 1.3 (1.0-2.8); Alkaline Phosphatase 60 U/L (38-126); Aspartate Aminotransferase 17 IU/L (14-36); BUN Creatinine Ratio 8.8 (6-22); Bilirubin Total 0.4 mg/dL (0.2-1.3); Blood Urea Nitrogen 5 mg/dL (7-17); Calcium 9.8 mg/dL (8.4-10.2); Carbon Dioxide 20 mmol/L (22-32); Chloride 109 mmol/L (98-107); Estimated Glomerular Filt Rate > 60 mL/min (>60); Globulin 2.9 g/dL (1.7-4.1); Glucose 118 mg/dL (70-100); HEMOLYSIS < 15 (0-50); Potassium 3.8 mmol/L (3.4-5.1); Sodium 137 mmol/L (137-145); Total Protein 6.7 g/dL (6.3-8.2)
[2023-12-12 14:08] LABS: Creatinine Urine Random 61.3 mg/dL; Protein (Total) Urine Random 23 mg/dL (0-12); Protein Creatinine Ratio Urine 0.37 GRAM/24H
== END 2023-12-12 13:01 | disposition home or self-care (01) ==
LOC: LABOR 12:34 → OB 12-16 15:07
PROVIDERS: Referring Provider Family Medicine; Visit Provider Family Medicine
DX: O13.3 Gestational [pregnancy-induced] hypertension without significant proteinuria, third trimester (principal); Z3A.32 32 weeks gestation of pregnancy
CPT/HCPCS: 36415; 59025; 80053; 82570; 84156; 85025; G0378; G0379

== ENCOUNTER 2023-12-19 08:22 | Outpatient (CLI) | payer OTHER, SELFPAY ==
--- NOTE | 2023-12-19 09:01 | PM.OBTRLD ---
Visit Information Visit Information Date of evaluation: 12/19/23 Primary OB Provider: Anastasiia Roberto Reason for Evaluation: Yes non-stress test non-stress test reason: hypertension/pre-eclampsia Comments/Additional reasons for admission: Pt is a 33yo at 33w2d here for NST due to gestational hypertension on Labetalol. Pt denies any current symptoms. Her BPs at home have been elevated to the 140s more frequently, however, BP in hospital today was 108/65 and 115/73. [facility] Medical History (Updated 12/12/23 @ 10:02 by Anastasiia Roberto MD) Gestational diabetes Irregular menstrual cycle (~2002) hemorrhage Chorioamnionitis Severe pre-eclampsia SAB (spontaneous ) (~10/21/20) Acne (~2002) Frequent headaches (~11/2020) Genital herpes (~2013) Surgical History (Updated 01/09/21 @ 12:46 by Kelli Hairston RN) [place] teeth extracted (~2015) Family History (Updated 08/01/23 @ 21:41 by Chana Montalvo) Mother Diabetes mellitus Hypertension Hyperlipidemia Type 2 diabetes mellitus Rheumatoid arthritis Father Hypertension CVA (cerebral vascular accident) Diabetes mellitus Hyperlipidemia Grandmother Diabetes mellitus Grandfather Cancer Lung cancer Heavy smoker Grandmother Cancer Colon cancer Grandfather Cancer Lung cancer Heavy smoker Brother Obesity Hypertension Rheumatoid arthritis Family/Other Diabetes mellitus Social History marital status: number of children: 1 household members: spouse and children lives independently: Yes caregiver/support person: Yes housing: house pets and animals: Yes (Dogs x 2) education level: college occupational status: employed 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 travel history: recent seatbelt use: always helmet use: Yes water heater temp set < 120 deg: Yes working smoke detector in home: Yes fire extinguisher in home: Yes carbon monox detector in home: Yes firearms in home: No do you feel safe at home: Yes Smoking Status: Never smoker second hand exposure: No alcohol intake: former substance use type: does not use during the past year weight has: other well-balanced diet: about half the time daily servings fruits/ve-4 caffeine: Yes (AM cup coffee) Type(s) of exercise: none Evaluation Evaluation Baseline heart rate: 150 Variability: Moderate (11-25) monitor accelerations: Present Monitor Decelerations: Absent Category of Tracing: Reactive Diagnosis, Plan/Disposition Final Diagnosis (1) Gestational hypertension: Status: Acute Plan/Disposition Plan: Pt is a 33yo at 33w2d here for NST due to gestational hypertension on Labetalol. BPs at home have been more elevated, however in hospital low-normal range. Will have pt continue checking BPs over the weekend, and have her bring in BP cuff at next appt to confirm values from home. Labs ordered today. Last pr/cr elevated, however not confirmed with 24hr urine yet (pr/cr prior to that elevated with normal 24hr protein). Continue testing. OB Disposition: home
== END 2023-12-19 09:05 | disposition home or self-care (01) ==
LOC: LABOR 08:54 → OB 12-23 09:46
PROVIDERS: Referring Provider Family Medicine; Visit Provider Family Medicine
DX: O13.3 Gestational [pregnancy-induced] hypertension without significant proteinuria, third trimester (principal); Z3A.33 33 weeks gestation of pregnancy
CPT/HCPCS: 59025; G0378; G0379

== ENCOUNTER → 2023-12-19 08:24 | Outpatient (CLI) | payer OTHER, SELFPAY ==
[2023-12-19 09:34] LABS: Add Manual Diff / Slide Review NO; Basophils Absolute Auto 0 /uL (0-100); Basophils Percent Auto 0.7 % (0-2); Eosinophils Absolute Auto 100 /uL (0-450); Eosinophils Percent Auto 0.9 % (2-4); Hemoglobin 11.3 g/dL (12.0-16.0); Lymphocytes Absolute Auto 1400 /uL (1100-4500); Lymphocytes Percent Auto 18.1 % (25-40); Mean Corpuscular HGB Conc 35.1 % (30-36); Mean Corpuscular Volume 79.8 fL (80-100); Monocytes Absolute Auto 500 /uL (0-900); Monocytes Percent Auto 7.3 % (3-14); Neutrophils Absolute Auto 5500 /uL (1500-7000); Platelet Count 177 X10^3/uL (150-400); Red Blood Cell Count 4.02 X10^6/uL (4.0-5.2); Red Cell Distribution Width 13.7 % (11.6-14.8); White Blood Cell Count 7.5 X10^3/uL (4.5-11.0)
[2023-12-19 09:57] LABS: Alanine Aminotransferase 10 IU/L (<35); Albumin 3.6 g/dL (3.5-5.0); Albumin Globulin Ratio 1.2 (1.0-2.8); Alkaline Phosphatase 59 U/L (38-126); Aspartate Aminotransferase 15 IU/L (14-36); BUN Creatinine Ratio 13.8 (6-22); Bilirubin Total 0.4 mg/dL (0.2-1.3); Blood Urea Nitrogen 8 mg/dL (7-17); Calcium 10.3 mg/dL (8.4-10.2); Carbon Dioxide 24 mmol/L (22-32); Chloride 107 mmol/L (98-107); Estimated Glomerular Filt Rate > 60 mL/min (>60); Globulin 2.9 g/dL (1.7-4.1); Glucose 109 mg/dL (70-100); HEMOLYSIS < 15 (0-50); Potassium 3.9 mmol/L (3.4-5.1); Sodium 138 mmol/L (137-145); Total Protein 6.5 g/dL (6.3-8.2); Uric Acid 5.8 mg/dL (2.5-6.2)
--- NOTE | 2023-12-19 10:21 | DIAB.GDFU ---
Follow-up Gestational Diabetes Assessment Name: Steph Pham Date: 12/19/23 Time: 930-10a Dx: Gestational Diabetes Provider: Felisa CLOVIS: 02/04/24 Weeks: 33 Steph presents today for follow-up GDM visit. Reports moderate to low CHO intake. BG in range, checking 2x per day now since most readings are in range. Reports some early satiety, but overall seems to be meeting nutritional needs based on diet recall. Some headaches resolved with hydration and medication. Does report lower water intake than last visit by 20-40ml. Reports difficulty with with son due to limited milk production. States she did see at that time. Physical Activity: Walking dogs 5 days per week Self-Monitoring Blood Glucose: No recent elevations. Date Pre Post Pre Post Pre Post HS 12/12 92 100 12/13 85 104 12/14 94 81 12/15 92 93 12/16 79 96 12/17 93 98 12/18 90 Diabetes Medications: None Pertinent Labs: screen 154 H (07/2023) OGTT: 87, 134, 170 H, 83 (07/2023) Repeat OGTT: 84, 183H, 173, 83 (10/2023) Intervention: This participant was very receptive. Provided appropriate educational handouts. Discussed the following topics: Recent blood sugar results and trends Review of macronutrient recommendations during Hydration recs Benefits, resources, and nutrition for recommendations for nutrition and physical activity recommendations for T2DM risk reduction OGTT at 6-12 weeks Checking blood sugars twice per week (goal: fasting <100 mg/dL and 2 hour pc <140 mg/dL) until 6 week check-up HgA1c q 1-3 years. Goals: Aim for 1c rice at lunch and dinner- 50% met, continue If having a sweet, keep to 15g CHO or less- met Increase water back to 4 of your water bottles per day - new Consider appt pre - new Get HgA1c and fasting glucose at PCP follow-ups q 1-3 years- new Follow-up: CHERIE TOLEDO follow-up prn. Encouraged her to call or message for follow-up needs prn. Otherwise, seems to be managing GDM well and is educated on T2DM risk reduction . Thuy Fernandez RDN, [place] Certified Diabetes Care and [employer] Machine Worker T: [phone] F: [phone] [email or web address] Thank you for this referral
[2023-12-19 15:09] LABS: Creatinine Urine Random 116.7 mg/dL; Protein (Total) Urine Random 20 mg/dL (0-12); Protein Creatinine Ratio Urine 0.17 GRAM/24H
== END ==
PROVIDERS: Referring Provider Family Medicine; Visit Provider Family Medicine
DX: O13.3 Gestational [pregnancy-induced] hypertension without significant proteinuria, third trimester (principal); Z3A.33 33 weeks gestation of pregnancy; Z71.3 Dietary counseling and surveillance
CPT/HCPCS: 36415; 59025; 80053; 82570; 84156; 84550; 85025; G0108

== ENCOUNTER → 2023-12-24 12:23 | Outpatient (CLI) | payer OTHER, SELFPAY ==
[2023-12-24 13:38] LABS: Add Manual Diff / Slide Review NO; Basophils Absolute Auto 0 /uL (0-100); Basophils Percent Auto 0.3 % (0-2); Eosinophils Absolute Auto 100 /uL (0-450); Eosinophils Percent Auto 0.8 % (2-4); Hematocrit 33.4 % (36-46); Hemoglobin 11.5 g/dL (12.0-16.0); Lymphocytes Absolute Auto 1500 /uL (1100-4500); Lymphocytes Percent Auto 20.7 % (25-40); Mean Corpuscular HGB Conc 34.5 % (30-36); Mean Corpuscular Hemoglobin 28.2 PG (26-34); Mean Corpuscular Volume 81.7 fL (80-100); Monocytes Absolute Auto 600 /uL (0-900); Monocytes Percent Auto 8.3 % (3-14); Neutrophils Absolute Auto 5000 /uL (1500-7000); Neutrophils Percent Auto 69.9 % (50-75); Platelet Count 178 X10^3/uL (150-400); Red Blood Cell Count 4.08 X10^6/uL (4.0-5.2); Red Cell Distribution Width 13.6 % (11.6-14.8); White Blood Cell Count 7.1 X10^3/uL (4.5-11.0)
[2023-12-24 14:18] LABS: Alanine Aminotransferase 9 IU/L (<35); Albumin Globulin Ratio 1.2 (1.0-2.8); Alkaline Phosphatase 65 U/L (38-126); Aspartate Aminotransferase 17 IU/L (14-36); BUN Creatinine Ratio 11.1 (6-22); Bilirubin Total 0.5 mg/dL (0.2-1.3); Blood Urea Nitrogen 7 mg/dL (7-17); Carbon Dioxide 21 mmol/L (22-32); Chloride 108 mmol/L (98-107); Estimated Glomerular Filt Rate > 60 mL/min (>60); Globulin 3.3 g/dL (1.7-4.1); Glucose 80 mg/dL (70-100); HEMOLYSIS < 15 (0-50); Potassium 3.6 mmol/L (3.4-5.1); Sodium 136 mmol/L (137-145); Total Protein 7.3 g/dL (6.3-8.2)
[2023-12-24 16:19] LABS: Collection Time Urine 24 Hours; Protein (Total) Urine Random 17 mg/dL (0-12); Total Protein 24 Hour Urine 306 mg/day (42-225); Total Volume Urine 1800 mL
[2023-12-24 16:22] LABS: Creatinine Urine Random 68.7 mg/dL; Protein (Total) Urine Random 16 mg/dL (0-12); Protein Creatinine Ratio Urine 0.23 GRAM/24H
== END ==
LOC: LAB 12:24
PROVIDERS: Referring Provider Family Medicine; Visit Provider Family Medicine
DX: O13.3 Gestational [pregnancy-induced] hypertension without significant proteinuria, third trimester (principal)
CPT/HCPCS: 36415; 80053; 82570; 84156; 85025

== ENCOUNTER 2023-12-24 12:25 | Outpatient (CLI) | payer OTHER, SELFPAY | END 2023-12-24 13:07 | disposition home or self-care (01) | LOC: LABOR 13:09 → OB 12-26 12:03 | PROVIDERS: Referring Provider Family Medicine; Visit Provider Family Medicine | DX: O13.3 Gestational [pregnancy-induced] hypertension without significant proteinuria, third trimester (principal); Z3A.34 34 weeks gestation of pregnancy | CPT/HCPCS: 36415; 59025; 80053; 82570; 84156; 85025; G0378; G0379 ==

== ENCOUNTER → 2023-12-31 06:59 | Outpatient (CLI) | payer OTHER, SELFPAY ==
--- NOTE | 2023-12-31 07:00 | DI.US.S_ITS ---
PROCEDURE: US OB LIMITED INDICATIONS: growth OUTSIDE/PRIOR DATING DATA: Last menstrual period (LMP): 04/21/2023. LMP-based estimated date of delivery (CLOVIS): 01/26/2024. First dating scan (date and location): 07/01/2023. Estimated date of delivery (CLOVIS) from first dating scan: 02/04/2024. The calculations are made using the ultrasound CLOVIS of 02/04/2024. TECHNIQUE: Real-time scanning was performed of the fetus, with image documentation and biometric measurements. Biophysical profile was also obtained. COMPARISON: [facility], OB LIMITED, 10/22/2023, 12:15. FINDINGS: General: A single living intrauterine gestation is present. Presentation: Vertex Placenta: Placental position is fundal , without previa. Amniotic fluid index: 13.1 cm, normal range is 5-24 cm. Single deepest vertical pocket is 5.2 cm. heart rate: 147 beats per minute. Maternal cervical canal: Not assessed biometrics: Biparietal diameter: 8.7 cm 35 weeks 2 days Head circumference: 31.6 cm 35 weeks 3 days Abdominal circumference: 31.3 cm 35 weeks 2 days Femur length: 6.8 cm 35 weeks 1 day Clinically estimated gestational age: 35 weeks 0 Composite gestational age from present scan: 35 weeks 2 days Estimated weight and percentile: 2626 g, 54th percentile IMPRESSION: Single live intrauterine with gestational age of 25 weeks 2 days. BRANDT and weight are within normal limits. We strive to produce accurate, complete, and clear reports of imaging services. To assist us in improving patient care, this report was composed using standard report templates and voice recognition software. Therefore, it may contain abnormal punctuation, insertions and/or omissions. Occasional wrong-word or sound-alike substitutions may occur. Though we review the report and make efforts to correct it, we do recommend that the report be read carefully in proper context to recognize any text inaccuracies. Dictated by: Mireya Flowers M.D. on 12/31/2023 at 11:42 Approved by: Mireya Flowers M.D. on 12/31/2023 at 11:54
== END ==
PROVIDERS: Referring Provider Family Medicine; Visit Provider Family Medicine
DX: O13.3 Gestational [pregnancy-induced] hypertension without significant proteinuria, third trimester (principal); Z3A.35 35 weeks gestation of pregnancy
CPT/HCPCS: 76815

== ENCOUNTER 2023-12-31 07:00 | Outpatient (CLI) | payer OTHER, SELFPAY ==
--- NOTE | 2023-12-31 07:43 | P.TNLD_ITS ---
Visit Information Visit Information Date of evaluation: 12/31/23 Primary OB Provider: Anastasiia Roberto Comments/Additional reasons for admission: 33yo at 35w0d here for NST for pre-eclampsia without severe features. Pt asymptomatic. Feeling baby move, no vaginal bleeding or contractions. [facility] Medical History (Updated 12/31/23 @ 07:46 by Anastasiia Roberto MD) Gestational diabetes Irregular menstrual cycle (~2002) hemorrhage Chorioamnionitis Severe pre-eclampsia SAB (spontaneous ) (~10/21/20) Acne (~2002) Frequent headaches (~11/2020) Genital herpes (~2013) Surgical History (Updated 01/09/21 @ 12:46 by Kelli Hairston RN) [place] teeth extracted (~2015) Family History (Updated 08/01/23 @ 21:41 by Chana Montalvo) Mother Diabetes mellitus Hypertension Hyperlipidemia Type 2 diabetes mellitus Rheumatoid arthritis Father Hypertension CVA (cerebral vascular accident) Diabetes mellitus Hyperlipidemia Grandmother Diabetes mellitus Grandfather Cancer Lung cancer Heavy smoker Grandmother Cancer Colon cancer Grandfather Cancer Lung cancer Heavy smoker Brother Obesity Hypertension Rheumatoid arthritis Family/Other Diabetes mellitus Social History marital status: number of children: 1 household members: spouse and children lives independently: Yes caregiver/support person: Yes housing: house pets and animals: Yes (Dogs x 2) education level: college occupational status: employed 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: No travel history: recent seatbelt use: always helmet use: Yes water heater temp set < 120 deg: Yes working smoke detector in home: Yes fire extinguisher in home: Yes carbon monox detector in home: Yes firearms in home: No do you feel safe at home: Yes Smoking Status: Never smoker second hand exposure: No alcohol intake: former substance use type: does not use during the past year weight has: other well-balanced diet: about half the time daily servings fruits/ve-4 caffeine: Yes (AM cup coffee) Type(s) of exercise: none Exam Vital Signs (past 8 hours): BP 130/88 Evaluation Evaluation Baseline heart rate: 140 Variability: Moderate (11-25) monitor accelerations: Present Monitor Decelerations: Absent Category of Tracing: Reactive Diagnosis, Plan/Disposition Final Diagnosis (1) Preeclampsia: Status: Acute Plan/Disposition Plan: 33yo at 35w0d here for NST for pre-eclampsia without severe features. NST reactive. Labs drawn. BP acceptable range. Continue regular testing, IOL at 37wks. OB Disposition: home
[2023-12-31 08:13] LABS: Add Manual Diff / Slide Review NO; Basophils Absolute Auto 0 /uL (0-100); Basophils Percent Auto 0.5 % (0-2); Eosinophils Absolute Auto 100 /uL (0-450); Eosinophils Percent Auto 0.9 % (2-4); Hematocrit 31.1 % (36-46); Hemoglobin 10.6 g/dL (12.0-16.0); Lymphocytes Absolute Auto 1400 /uL (1100-4500); Lymphocytes Percent Auto 19.6 % (25-40); Mean Corpuscular Hemoglobin 27.8 PG (26-34); Mean Corpuscular Volume 81.8 fL (80-100); Monocytes Absolute Auto 600 /uL (0-900); Neutrophils Absolute Auto 5100 /uL (1500-7000); Platelet Count 171 X10^3/uL (150-400); Red Blood Cell Count 3.81 X10^6/uL (4.0-5.2); Red Cell Distribution Width 14.2 % (11.6-14.8); White Blood Cell Count 7.1 X10^3/uL (4.5-11.0)
[2023-12-31 08:28] LABS: Alanine Aminotransferase 12 IU/L (<35); Albumin 3.8 g/dL (3.5-5.0); Albumin Globulin Ratio 1.2 (1.0-2.8); Alkaline Phosphatase 60 U/L (38-126); Aspartate Aminotransferase 18 IU/L (14-36); BUN Creatinine Ratio 13.2 (6-22); Bilirubin Total 0.4 mg/dL (0.2-1.3); Blood Urea Nitrogen 7 mg/dL (7-17); Calcium 9.6 mg/dL (8.4-10.2); Carbon Dioxide 24 mmol/L (22-32); Chloride 109 mmol/L (98-107); Estimated Glomerular Filt Rate > 60 mL/min (>60); Globulin 3.1 g/dL (1.7-4.1); Glucose 111 mg/dL (70-100); HEMOLYSIS < 15 (0-50); Sodium 137 mmol/L (137-145); Total Protein 6.9 g/dL (6.3-8.2)
== END 2023-12-31 08:24 | disposition home or self-care (01) ==
LOC: LABOR 07:37 → OB 01-09 14:36
PROVIDERS: Referring Provider Family Medicine; Visit Provider Family Medicine
DX: O14.03 Mild to moderate pre-eclampsia, third trimester (principal); Z3A.35 35 weeks gestation of pregnancy; O13.3 Gestational [pregnancy-induced] hypertension without significant proteinuria, third trimester
CPT/HCPCS: 36415; 59025; 76815; 80053; 85025; G0378; G0379

== ENCOUNTER 2024-01-08 07:53 | Outpatient (CLI) | payer OTHER, SELFPAY | END 2024-01-08 08:36 | disposition home or self-care (01) | LOC: LABOR 09:36 → OB 01-09 14:28 | PROVIDERS: Referring Provider Family Medicine; Visit Provider Family Medicine | DX: O13.3 Gestational [pregnancy-induced] hypertension without significant proteinuria, third trimester (principal); Z3A.36 36 weeks gestation of pregnancy | CPT/HCPCS: 59025; G0378; G0379 ==

== ENCOUNTER → 2024-01-12 09:49 | Outpatient (CLI) | payer OTHER, SELFPAY ==
[2024-01-12 17:38] LABS: Strep Grp B PCR NEG for Grp B Strep
== END ==
PROVIDERS: Visit Provider Family Medicine
DX: O13.9 Gestational [pregnancy-induced] hypertension without significant proteinuria, unspecified trimester (principal)
CPT/HCPCS: 87081; 87653

== ENCOUNTER 2024-01-12 09:56 | Inpatient (IN) | payer OTHER, SELFPAY ==
--- NOTE | 2024-01-12 10:36 | P.HPOB_ITS ---
OB HPI Date/Time Date of admission: 01/12/24 Date Patient Seen: 01/12/24 History of Present Condition Chief complaint: OBS OF LABOR CLOVIS Calculator 2 Estimated Delivery Date Method Current WG Current Estimate 02/04/24 Manual 36w 5d Final CLOVIS - DANIEL Other Estimates 01/26/24 LMP (Certain) 38w 0d 02/04/24 Ultrasound #1 36w 5d Estimated Gestational Age (weeks): 36w5d : 3 Para: 1 Narrative: 33yo at 36w5d here due to gross ROM. The pt was in clinic this afternoon, and felt a gush of fluid at approximately 10am. She denies any vaginal bleeding or contractions. She is feeling her baby move regularly. The pts was complicated by GDMA1 with excellent control. She gestational vs chronic HTN, controlled with PO Labetalol up to 300mg BID dosing. Diagnosed with pre-eclampsia with elevated 24hr urine protein in the 3rd trimester. Pt remains asymptomatic without headache, swelling, RUQ pain, vision changes. Pt with hx of HSV, on Valacyclovir prophylaxis. care: good care, initiated at week # (8) and pounds weight gain (26) Dating criteria OB: based on 1st trimester US only Ultrasounds: normal 1st trimester US, normal mid trimester US and abnormal US findings (placenta previa, resolved on repeat imaging) Obstetrical complications: gestational diabetes and preeclampsia Medical complications OB: none Preadmission Labs Last OB Lab Results: 2 Blood Type A Positive 01/12/24 10:45 Antibody Screen Negative 01/12/24 10:45 Hematocrit 33.4 % (36-46) L 01/12/24 10:45 Hemoglobin 11.4 g/dL (12.0-16.0) L 01/12/24 10:45 Hepatitis B Surface Antigen Negative s/c (NEGATIVE) 07/08/23 10 :52 Hepatitis C Antibody Negative s/c (NEGATIVE) 07/08/23 10:52 Rubella Antibody 96.1 IU/mL (>15) 07/08/23 10:52 Varicella-Zoster IgG Antibody 3135 index (Immune >165) 07/08/23 10:52 Glucose 1 Hour 154 mg/dL (76-139) H 07/08/23 12:12 Group B Streptococcus (PCR) Neg for grp b strep 08/14/21 16:17 -: Urine: negative Genetic Screens: Cell-free DNA: Normal External Labs -: Urine: negative Prior (ies) Past Pregnancies Del. Date GA/Weeks Labor Lgth Wt Sex Route Outcome Anesthesia Place Delv Breastfeed Preg Comp Name 10/21/20 9 WA spontaneous 08/25/21 38 3 6 lb 15 oz Male vaginal live - full term e pidural IH 4 months pre-eclampsia hemorrhage gestational diabetes [place] Delivery Date: 10/21/20 Last Updated by: Kelli Hairston RGemini *Rx Misoprostol. Evaluation Evaluation Baseline heart rate: 150 Variability: Moderate (11-25) monitor accelerations: Present Monitor Decelerations: Absent Status: Category l Dilation (cm): 1.5 Effacement (%): 20 Dilation: 1-2 cm Effacement: 0-30% station: -3 Position of cervix: mid Consistency: soft Whitfield score: 4 PFSH Medical History (Updated 12/31/23 @ 12:30 by Randee Rojas DO) Gestational diabetes Irregular menstrual cycle (~2002) hemorrhage Chorioamnionitis Severe pre-eclampsia SAB (spontaneous ) (~10/21/20) Acne (~2002) Frequent headaches (~11/2020) Genital herpes (~2013) Surgical History (Updated 01/09/21 @ 12:46 by Kelli Hairston RN) [place] teeth extracted (~2015) Family History (Updated 08/01/23 @ 21:41 by Chana Montalvo) Mother Diabetes mellitus Hypertension Hyperlipidemia Type 2 diabetes mellitus Rheumatoid arthritis Father Hypertension CVA (cerebral vascular accident) Diabetes mellitus Hyperlipidemia Grandmother Diabetes mellitus Grandfather Cancer Lung cancer Heavy smoker Grandmother Cancer Colon cancer Grandfather Cancer Lung cancer Heavy smoker Brother Obesity Hypertension Rheumatoid arthritis Family/Other Diabetes mellitus Social History marital status: number of children: 1 household members: spouse and children lives independently: Yes caregiver/support person: Yes housing: house pets and animals: Yes (Dogs x 2) education level: college occupational status: employed 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 travel history: recent seatbelt use: always helmet use: Yes water heater temp set < 120 deg: Yes working smoke detector in home: Yes fire extinguisher in home: Yes carbon monox detector in home: Yes firearms in home: No do you feel safe at home: Yes Smoking Status: Never smoker second hand exposure: No alcohol intake: former substance use type: does not use during the past year weight has: other well-balanced diet: about half the time daily servings fruits/ve-4 caffeine: Yes (AM cup coffee) Type(s) of exercise: none Meds Home Medications and Allergies Home Medications Medication Instructions Recorded Confirmed Type acetaminophen 325 mg capsule 650 mg PO Q6H PRN Headache 01/09/21 01/12/24 History (Tylenol) prenat.vits,chelita,ujx-yepv-jbdow 1 tab PO DAILY 01/09/21 01/12/24 History aspirin 81 mg chewable tablet 81 mg PO DAILY 10/17/23 01/12/24 History test strips, lancets #100 ea 11/05/23 01/12/24 Rx glucometer #1 ea 11/05/23 01/12/24 Rx labetalol 200 mg tablet 400 mg (2 x 200 mg) PO BID #360 12/12/23 01/12/24 Rx tabs valacyclovir 1 gram tablet 1,000 mg PO BID #14 tabs 12/12/23 01/12/24 Rx Allergies Allergy/AdvReac Type Severity Reaction Status Date / Time No Known Drug Allergies Allergy Verified 01/12/24 09:45 OB Exam Narrative Exam Narrative: Gen: NAD, sitting comfortably in bed, appears well CV: RRR, no murmurs Resp: clear to auscultation bilaterally Abd: soft, nontender, gravid Ext: no edema Resp Effort & Inspection: normal respiratory effort Auscultation: clear to auscultation bilaterally Cardio Rate: regular rate Rhythm: regular rhythm Heart Sounds: S1 normal, S2 normal and no murmurs GI Inspection: non-distended Palpation: Yes soft and No tender Presentation: vertex Objective Labs 01/12/24 10:45 01/12/24 Unknown Assessment and Plan Assessment and Plan Assessment and Plan narrative: 33yo at 36w5d here with PPROM. complicated by GDMA1, pre- eclampsia superimposed on gestational HTN vs chronic HTN (unclear diagnosis based on early diagnosis), hx of HSV on Valacyclovir prophylaxis. GBS unknown (collected today), Rh positive. - Start pitocin for induction in setting of ROM - Continuous monitoring, FHT reassuring currently - GBS sent today. Start GBS prophylaxis due to prematurity. Plan to stop if GBS returns negative. - Epidural for pain control when desired - Monitor BPs closely. No evidence of HELLP currently, labs stable. - Discussed risks vs benefits of Betamethasone. Due to pt being so close to 37wks, and higher risk of blood sugar issues in due to GDM, pt elects to not proceed with Betamethasone injection.
[2024-01-12 11:04] LABS: Add Manual Diff / Slide Review NO; Basophils Absolute Auto 0 /uL (0-100); Basophils Percent Auto 0.4 % (0-2); Eosinophils Absolute Auto 0 /uL (0-450); Eosinophils Percent Auto 0.5 % (2-4); Hematocrit 33.4 % (36-46); Hemoglobin 11.4 g/dL (12.0-16.0); Lymphocytes Absolute Auto 1500 /uL (1100-4500); Lymphocytes Percent Auto 21.5 % (25-40); Mean Corpuscular Hemoglobin 27.7 PG (26-34); Mean Corpuscular Volume 81.6 fL (80-100); Monocytes Absolute Auto 600 /uL (0-900); Monocytes Percent Auto 8.2 % (3-14); Neutrophils Absolute Auto 4800 /uL (1500-7000); Neutrophils Percent Auto 69.4 % (50-75); Platelet Count 166 X10^3/uL (150-400); Red Blood Cell Count 4.09 X10^6/uL (4.0-5.2); Red Cell Distribution Width 14.1 % (11.6-14.8); White Blood Cell Count 6.9 X10^3/uL (4.5-11.0)
[2024-01-12 11:21] LABS: Alanine Aminotransferase 13 IU/L (<35); Albumin 3.7 g/dL (3.5-5.0); Albumin Globulin Ratio 1.2 (1.0-2.8); Alkaline Phosphatase 68 U/L (38-126); Aspartate Aminotransferase 19 IU/L (14-36); BUN Creatinine Ratio 14.3 (6-22); Bilirubin Total 0.4 mg/dL (0.2-1.3); Blood Urea Nitrogen 7 mg/dL (7-17); Calcium 10.7 mg/dL (8.4-10.2); Carbon Dioxide 22 mmol/L (22-32); Chloride 108 mmol/L (98-107); Estimated Glomerular Filt Rate > 60 mL/min (>60); Globulin 3.1 g/dL (1.7-4.1); Glucose 100 mg/dL (70-100); HEMOLYSIS < 15 (0-50); Potassium 3.6 mmol/L (3.4-5.1); Sodium 136 mmol/L (137-145); Total Protein 6.8 g/dL (6.3-8.2)
[2024-01-12 11:45] VITALS: BP 120/72
[2024-01-12] MEDS: AMPICILLIN 2,000 MG in SODIUM CHLORIDE 0.9% 100 ML 200 MG IV (13:59)
[2024-01-12] MEDS: OXYTOCIN PREMIX 30 UNIT/500 ML PLAST..BAG IV (14:00)
[2024-01-12] MEDS: LACTATED RINGERS 1,000 ML 100 ML IV ×2 (14:00→18:47)
[2024-01-12 18:46] VITALS: BP 173/95
[2024-01-12] MEDS: LABETALOL 20 MG/4 ML SYRINGE IV (18:46)
[2024-01-12] MEDS: MAGNESIUM SULFATE 4 GM/100 ML PIGGYBACK IV (18:47)
[2024-01-12] MEDS: LABETALOL 100 MG TABLET 400 MG PO (18:57)
[2024-01-12 19:16] LABS: HEMOLYSIS < 15 (0-50); Potassium 3.5 mmol/L (3.4-5.1)
[2024-01-12 19:17] LABS: Alanine Aminotransferase 10 IU/L (<35); Albumin 3.7 g/dL (3.5-5.0); Albumin Globulin Ratio 1.2 (1.0-2.8); Alkaline Phosphatase 77 U/L (38-126); Aspartate Aminotransferase 18 IU/L (14-36); BUN Creatinine Ratio 16.7 (6-22); Bilirubin Total 0.3 mg/dL (0.2-1.3); Blood Urea Nitrogen 9 mg/dL (7-17); Calcium 10.6 mg/dL (8.4-10.2); Carbon Dioxide 21 mmol/L (22-32); Chloride 108 mmol/L (98-107); Estimated Glomerular Filt Rate > 60 mL/min (>60); Globulin 3.2 g/dL (1.7-4.1); Glucose 84 mg/dL (70-100); Sodium 136 mmol/L (137-145); Total Protein 6.9 g/dL (6.3-8.2)
[2024-01-12] MEDS: MAGNESIUM SULFATE 20 GM/500 ML IV.SOLN IV (19:31)
--- NOTE | 2024-01-12 20:41 | P.PNOB_ITS ---
Pain Control Pain control: tolerating well Contractions Monitor mode: External Pitocin rate (mU/min): 12 Contraction frequency (min): 3 Status status: Category l Heart Rate Baseline: 130 Monitor Accelerations: Present Monitor Decelerations: Absent Monitor Variability: Moderate Assessment and Plan Comments: 33yo at 36w5d here with PPROM. complicated by GDMA1, pre- eclampsia superimposed on gestational HTN vs chronic HTN (unclear diagnosis based on early diagnosis), hx of HSV on Valacyclovir prophylaxis. GBS negative, Rh positive. Pt now with multiple severe range blood pressures, indicative of severe pre-eclampsia. Will initiate MgSO4 with 4g bolus followed by 2g/hr. Given 20mg IV Labetalol, will repeat 20mg dose. Pt already received usual 400mg Labetalol this evening. - Continue pitocin - Continuous monitoring, FHT reassuring currently - GBS returned negative, stop ampicillin - Epidural for pain control when desired - Continue to monitor BPs closely, if repeat above 160/110, give 40mg IV Labetalol - MgSO4 bolus followed by continuous as above - Repeat labs to trend
--- NOTE | 2024-01-12 21:23 | PM.AN.REGBLK ---
Regional Block Pre-procedure Procedure: Continuous Lumbar Epidural for L&D Attending OB provider: Anastasiia Roberto PMH/ROS narrative: 33yo female with PMH significant for preeclampsia, gestational diabetes, hemorrhage, genital herpes, headaches Hx: No personal or family history of anesthesia problems. PSH/Anesthesia history narrative: Labor epidural ASA Class: III Labs: Hct 33.4 % (36-46) L 01/12/24 10:45 Plt Count 166 X10^3/uL (150-400) 01/12/24 10:45 Medications: Current Medications Generic Name Dose Route Start Last Admin Trade Name Freq PRN Reason Stop Dose Admin Carboprost Tromethamine 250 mcg 01/12/24 10:13 Carboprost 250 Mcg/Ml Ampul IM Q90M PRN Bleeding Fentanyl 50 mcg 01/12/24 10:13 Fentanyl 100 Mcg/2 Ml Inj IV Q1H PRN Pain, Moderate (4-6) Oxytocin/Lactated Ringer's 30 unit in 500 mls @ 200 mls/hr 01/12/24 10:13 Oxytocin Premix IV CONT PRN Bleeding Protocol Tranexamic Acid 1,000 mg/ 100 mls @ 200 mls/hr 01/12/24 10:13 Sodium Chloride IV NOW PRN Bleeding Oxytocin/Lactated Ringer's 30 unit in 500 mls @ 2 mls/hr 01/12/24 10:15 01/12/24 14:00 Oxytocin Premix IV 2 milliunit/min TITRATE VIBHA 2 mls/hr Administration Protocol 2 MILLIUNIT/MIN Lactated Ringer's 1,000 mls @ 100 mls/hr 01/12/24 10:15 01/12/24 18:47 Lactated Ringers IV 100 mls/hr CONT VIBHA Administration Magnesium Sulfate 20 gm in 500 mls @ 50 mls/hr 01/12/24 18:30 01/12/24 19:31 Magnesium Sulfate IV 50 mls/hr CONT VIBHA Administration Labetalol HCl 400 mg 01/12/24 18:30 01/12/24 18:57 Labetalol 100 Mg Tablet PO 400 mg BID VIBHA Administration Lidocaine HCl 20 ml 01/12/24 10:13 Lidocaine 1% 20 Ml INJ INTRA-OP PRN Post Delivery Methylergonovine Maleate 0.2 mg 01/12/24 10:13 Methylergonovine 0.2 Mg Tablet PO Q6HR PRN Heavy Bleeding Methylergonovine Maleate 0.2 mg 01/12/24 10:13 Methylergonovine 0.2 Mg/Ml Vial IM NOW PRN Bleeding Misoprostol 800 mcg 01/12/24 10:13 Misoprostol 200 Mcg Tablet UT NOW PRN Bleeding Misoprostol 400 mcg 01/12/24 10:13 Misoprostol 200 Mcg Tablet SL NOW PRN Bleeding Naloxone HCl 0.2 mg 01/12/24 10:13 Naloxone 0.4 Mg/Ml Vial IV Q2MIN PRN Opiate Reversal Ondansetron HCl 4 mg 01/12/24 10:13 Ondansetron 4 Mg/2 Ml Inj IV Q4HR PRN Nausea And Vomiting Oxytocin 10 unit 01/12/24 10:13 Oxytocin 10 Unit/Ml Vial IM NOW PRN Bleeding Allergies: Allergies Allergy/AdvReac Type Severity Reaction Status Date / Time No Known Drug Allergies Allergy Verified 01/12/24 09:45 Procedure Insertion date: 01/12/24 Insertion time: 20:48 Prep/Local: betadine x3 and 1% lidocaine Interspace: L3-L4 Patient position: sitting Needle: 18 gauge Gayle Loss of resistance with: saline CINDY at (cm): 7 Catheter placed at SKIN (cm): 14 Catheter in SPACE (cm): 7 Insertion: No CSF, No Blood, No Paresthesia with insertion, No Paresthesia with injection and No Test dose reaction Initial Medications TEST DOSE time: 20:50 BOLUS DOSE time: 20:53 BOLUS DOSE (mL): 3 BOLUS DOSE med: other (2% Lidocaine) Infusion INFUSION: 0.125% bupivacaine and with fentanyl 2 mcg/mL Initial rate (mL/hr): 6 Post-procedure Anesthesia date START: 01/12/24 Anesthesia time START: 20:10 Anesthesia date END: 01/13/24 Anesthesia time END: 13:05 Post-procedure Anesthesia Assessment: Yes CV function: HR/BP stable, Yes Resp function: RR/sat/airway adequate, Yes Post-op hydration adequate, Yes Pain control adequate, Yes Nausea & vomiting absent, Yes Temperature > 36 C and Yes Mental status appropriate
[2024-01-13 06:37] LABS: Magnesium 3.2 mg/dL (1.6-2.3)
[2024-01-13 08:19] VITALS: BP 151/87; PULSE 86
[2024-01-13] MEDS: LABETALOL 100 MG TABLET 400 MG PO ×2 (08:19→18:07)
[2024-01-13] MEDS: FENT 2MCG/ML BUPIV 0.125% EPI 200 MCG/100 ML PLAST..BAG 6 MCG EPIDURAL (09:51)
--- NOTE | 2024-01-13 12:31 | P.PNOB_ITS ---
Date/Time Date Patient Seen: 01/13/24 Time Patient Seen: 07:45 Pain Control Pain control: epidural Pelvic Exam Dilation (cm): 4.5 Effacement (%): 20 station: -3 Amniotic membrane status: Ruptured Contractions Monitor mode: External Pitocin rate (mU/min): 8 Contraction frequency (min): 3 Status status: Category l Heart Rate Baseline: 130 Monitor Accelerations: Present Monitor Decelerations: Absent Monitor Variability: Moderate Assessment and Plan Comments: 33yo at 36w5d here with PPROM. complicated by GDMA1, pre- eclampsia superimposed on gestational HTN vs chronic HTN (unclear diagnosis based on early diagnosis), hx of HSV on Valacyclovir prophylaxis. GBS negative, Rh positive. Pt diagnosed with severe pre-eclampsia, initiated on MgSO4 last night. BPs now stable. Still no evidence of HELLP. - Continue pitocin. Was turned off briefly last night due to staffing, working way back to consistent contractions now. - Continuous monitoring, FHT reassuring currently - Epidural in place for pain control - Continue to monitor BPs closely, if repeat above 160/110, give 40mg IV Labetalol - Continue MgSO4 at 2g/hr
[2024-01-13] MEDS: TRANEXAMIC ACID 1,000 MG in SODIUM CHLORIDE 0.9% 100 ML 200 MG IV (13:20)
[2024-01-13] MEDS: miSOPROStoL 200 MCG TABLET 1000 MCG PR (13:25)
--- NOTE | 2024-01-13 13:51 | PM.AN.REGBLK ---
[facility] Pre-procedure Labs: Hct 33.4 % (36-46) L 01/12/24 10:45 Plt Count 166 X10^3/uL (150-400) 01/12/24 10:45 Medications: Current Medications Generic Name Dose Route Start Last Admin Trade Name Freq PRN Reason Stop Dose Admin Carboprost Tromethamine 250 mcg 01/12/24 10:13 Carboprost 250 Mcg/Ml Ampul IM Q90M PRN Bleeding Diphenhydramine HCl 25 mg 01/12/24 21:20 Diphenhydramine 50 Mg/Ml Vial IV Q10M PRN Pruritis Diphenhydramine HCl 25 mg 01/12/24 21:20 Diphenhydramine 50 Mg/Ml Vial IV 01/13/24 21:22 Q3HR PRN PRURITUS Ephedrine Sulfate 5 mg 01/12/24 21:20 Ephedrine 50 Mg/Ml Vial IV Q5M PRN Blood pressure decrease more than 20% of baseline. Fentanyl 50 mcg 01/12/24 10:13 Fentanyl 100 Mcg/2 Ml Inj IV Q1H PRN Pain, Moderate (4-6) Oxytocin/Lactated Ringer's 30 unit in 500 mls @ 200 mls/hr 01/12/24 10:13 Oxytocin Premix IV CONT PRN Bleeding Protocol Tranexamic Acid 1,000 mg/ 100 mls @ 200 mls/hr 01/12/24 10:13 Sodium Chloride IV NOW PRN Bleeding Oxytocin/Lactated Ringer's 30 unit in 500 mls @ 2 mls/hr 01/12/24 10:15 01/12/24 14:00 Oxytocin Premix IV 2 milliunit/min TITRATE VIBHA 2 mls/hr Administration Protocol 2 MILLIUNIT/MIN Lactated Ringer's 1,000 mls @ 100 mls/hr 01/12/24 10:15 01/12/24 18:47 Lactated Ringers IV 100 mls/hr CONT IVBHA Administration Magnesium Sulfate 20 gm in 500 mls @ 50 mls/hr 01/12/24 18:30 01/12/24 19:31 Magnesium Sulfate IV 50 mls/hr CONT VIBHA Administration FENT 2MCG/ML BUPIV 0.125% EPI 200 mcg in 100 mls @ 6 mls/hr 01/12/24 21:30 01/13/24 09:51 Fentanyl/Bupiv/Ns 2mcg/Ml - 0.125% EPIDURAL 6 mls/hr CONT VIBHA Administration Labetalol HCl 400 mg 01/12/24 18:30 01/13/24 08:19 Labetalol 100 Mg Tablet PO 400 mg BID VIBHA Administration Lidocaine HCl 20 ml 01/12/24 10:13 Lidocaine 1% 20 Ml INJ INTRA-OP PRN Post Delivery Methylergonovine Maleate 0.2 mg 01/12/24 10:13 Methylergonovine 0.2 Mg Tablet PO Q6HR PRN Heavy Bleeding Methylergonovine Maleate 0.2 mg 01/12/24 10:13 Methylergonovine 0.2 Mg/Ml Vial IM NOW PRN Bleeding Misoprostol 400 mcg 01/12/24 10:13 Misoprostol 200 Mcg Tablet SL NOW PRN Bleeding Misoprostol 1,000 mcg 01/13/24 13:33 Misoprostol 200 Mcg Tablet IL NOW PRN Bleeding Nalbuphine HCl 2.5 mg 01/12/24 21:20 Nalbuphine 20 Mg/Ml Ampul IV Q10M PRN Pruritis Naloxone HCl 0.2 mg 01/12/24 10:13 Naloxone 0.4 Mg/Ml Vial IV Q2MIN PRN Opiate Reversal Naloxone HCl 0.4 mg 01/12/24 21:20 Naloxone 0.4 Mg/Ml Vial IV Q2MIN PRN Opiate Reversal Ondansetron HCl 4 mg 01/12/24 10:13 Ondansetron 4 Mg/2 Ml Inj IV Q4HR PRN Nausea And Vomiting Ondansetron HCl 4 mg 01/12/24 21:20 Ondansetron 4 Mg/2 Ml Inj IV 01/13/24 21:22 Q6HR PRN Nausea Oxytocin 10 unit 01/12/24 10:13 Oxytocin 10 Unit/Ml Vial IM NOW PRN Bleeding Allergies: Allergies Allergy/AdvReac Type Severity Reaction Status Date / Time No Known Drug Allergies Allergy Verified 01/12/24 09:45 Initial Medications BOLUS DOSE time: 11:58 BOLUS DOSE (mL): 5 BOLUS DOSE med: 0.25% bupivacaine Infusion Initial rate (mL/hr): 8
[2024-01-13] MEDS: OXYTOCIN PREMIX 30 UNIT/500 ML PLAST..BAG 200 UNIT IV (14:05)
--- NOTE | 2024-01-13 15:17 | P.PCNOB_ITS ---
Labor & Delivery Delivery date: 01/13/24 Induction method: per pitocin protocol Delivery monitor: external FHT and external uterine Route of delivery: Episiotomy description: None L&D Laceration Description: Perineal - 1st Degree Quantitative Blood Loss: 840 Complications: hemorrhage Narrative: PROCEDURE: at 36w5d presented with PPROM with clear fluid and was admitted to Labor and Delivery. Pitocin was initiated for induction. The patient progressed through the 1st stage over 2 hours, after a prolonged latent phase on pitocin without cervical change. While in the latent phase, the pt had multiple severe range BPs, and MgSO4 was initiated. She received one dose of IV Labetalol. Pain was controlled with an epidural. Her BPs then improved. The patient progressed through the 2nd stage over 5 minutes and delivered a viable female with APGARs 8/9 at 13:05 via . The cord was cut and clamped after it stopped pulsating. The placenta delivered with gentle cord traction, and appeared complete. The perineum and vagina were inspected with small 1st degree perineal laceration repaired with 3-O chromic for hemostasis. The pt had increased vaginal bleeding after delivery due to intermittent uterine atony. This was controlled with TXA, rectal cytotec, usual pitocin, and bimanual massage/extraction of clots. Needle and sponge counts were correct.? The vagina was inspected and no items were left in situ. Sherice was doing well with May, her and her , Christoph, at bedside. PREPROCEDURE DIAGNOSIS: Intrauterine at 36w6d Preeclampsia with severe features GBS negative RH positive POSTPROCEDURE DIAGNOSIS: Intrauterine at 36w6d, delivered Same as preprocedure hemorrhage [place] Baby 1: gender: Female Presentation: vertex Position: Left Occiput Anterior Placenta delivery description: Spontaneous Cord Vessel Description: 3 Vessels score (1 min): 8 score (5 min): 9 weight: 6 lb 6.718 oz Plan for aftercare: Routine care
[2024-01-13] MEDS: MAGNESIUM SULFATE 20 GM/500 ML IV.SOLN IV (16:01)
[2024-01-13] MEDS: ACETAMINOPHEN 325 MG TABLET 650 MG PO (16:25)
[2024-01-13] MEDS: IBUPROFEN 600 MG TABLET PO (16:25)
[2024-01-14 06:04] LABS: Add Manual Diff / Slide Review NO; Basophils Absolute Auto 0 /uL (0-100); Basophils Percent Auto 0.4 % (0-2); Eosinophils Absolute Auto 100 /uL (0-450); Eosinophils Percent Auto 1.1 % (2-4); Hematocrit 28.5 % (36-46); Hemoglobin 9.9 g/dL (12.0-16.0); Lymphocytes Absolute Auto 1600 /uL (1100-4500); Lymphocytes Percent Auto 22.1 % (25-40); Mean Corpuscular HGB Conc 34.8 % (30-36); Mean Corpuscular Hemoglobin 28.3 PG (26-34); Mean Corpuscular Volume 81.3 fL (80-100); Monocytes Absolute Auto 600 /uL (0-900); Monocytes Percent Auto 7.8 % (3-14); Neutrophils Absolute Auto 5100 /uL (1500-7000); Neutrophils Percent Auto 68.6 % (50-75); Platelet Count 132 X10^3/uL (150-400); Red Blood Cell Count 3.51 X10^6/uL (4.0-5.2); Red Cell Distribution Width 14.2 % (11.6-14.8); White Blood Cell Count 7.4 X10^3/uL (4.5-11.0)
[2024-01-14 06:49] VITALS: BP 137/84; PULSE 79
[2024-01-14] MEDS: IBUPROFEN 600 MG TABLET PO (06:49)
[2024-01-14] MEDS: LABETALOL 100 MG TABLET 400 MG PO ×2 (06:49→18:01)
[2024-01-14] MEDS: ACETAMINOPHEN 325 MG TABLET 650 MG PO (06:50)
[2024-01-14] MEDS: FERROUS SULFATE 325 MG TABLET PO (09:11)
[2024-01-14] MEDS: PRENATAL VIT,CALC/IRON/FOLIC 1 TABLET 1 TAB PO (09:11)
[2024-01-14 09:17] LABS: Alanine Aminotransferase 11 IU/L (<35); Albumin 2.9 g/dL (3.5-5.0); Alkaline Phosphatase 67 U/L (38-126); Aspartate Aminotransferase 36 IU/L (14-36); BUN Creatinine Ratio 9.8 (6-22); Bilirubin Total 0.4 mg/dL (0.2-1.3); Blood Urea Nitrogen 5 mg/dL (7-17); Calcium 8.2 mg/dL (8.4-10.2); Carbon Dioxide 24 mmol/L (22-32); Chloride 109 mmol/L (98-107); Estimated Glomerular Filt Rate > 60 mL/min (>60); Globulin 2.9 g/dL (1.7-4.1); Glucose 92 mg/dL (70-100); HEMOLYSIS < 15 (0-50); Magnesium 3.4 mg/dL (1.6-2.3); Potassium 3.6 mmol/L (3.4-5.1); Sodium 134 mmol/L (137-145); Total Protein 5.8 g/dL (6.3-8.2)
[2024-01-14 18:01] VITALS: BP 163/84; PULSE 67
[2024-01-14] MEDS: NIFEdipine 30 MG TAB ER PO ×2 (18:01→22:59)
--- NOTE | 2024-01-14 23:02 | P.PNOB_ITS ---
Subjective - OB Subjective Patient comments: no complaints and pain well controlled [place] baby status: doing well and nursing well feeding status: exclusively breast feeding Narrative: Patient reports that she is doing well. Her lochia is decreasing appropriately. She has voided successfully. Date Patient Seen: 01/15/24 Interval history: The pt reports that she is feeling well. Her lochia is decreasing appropriately. She continues to deny any headaches, vision changes, RUQ pain. Her swelling is stable. She is passing flatus and ambulating. She is with good latch. Exam Vital Signs (past 8 hours): - 01/14/24 18:01 Pulse Rate 67 Blood Pressure 163/84 H Objective Labs 01/14/24 05:52 01/14/24 05:52 Labs: Laboratory Results - last 24 hr 01/14/24 05:52 WBC 7.4 RBC 3.51 L Hgb 9.9 L Hct 28.5 L MCV 81.3 MCH 28.3 MCHC 34.8 RDW 14.2 Plt Count 132 L Neut % (Auto) 68.6 Lymph % (Auto) 22.1 L [place] % (Auto) 7.8 Eos % (Auto) 1.1 L Baso % (Auto) 0.4 Neut # (Auto) 5100 Lymph # (Auto) 1600 [place] # (Auto) 600 Eos # (Auto) 100 Baso # (Auto) 0 Sodium 134 L Potassium 3.6 Chloride 109 H Carbon Dioxide 24 BUN 5 L Creatinine 0.51 L Estimated GFR > 60 BUN/Creatinine Ratio 9.8 Glucose 92 Calcium 8.2 L Magnesium 3.4 H Total Bilirubin 0.4 AST 36 ALT 11 Alkaline Phosphatase 67 Total Protein 5.8 L Albumin 2.9 L Globulin 2.9 Albumin/Globulin Ratio 1.0 Assessment & Plan Plan Comments: 33yo PPD #1 s/p with hemorrhage, with labor complicated by severe pre-eclampsia requiring MgS04 for treatment. BPs since delivery has been out of severe range. Pt is asymptomatic, labs stable without evidence of HELLP. - Continue MgSO4 until delivery time for total 24hrs , assuming BPs remain in good range - Normal care - Continue q1hr BP checks. If BP rising to > 150/100, will initiate Nifedipine 30mg XR - Iron supplement for acute blood loss anemia. Lochia appropriate now. Time Spent With Patient Time: Total time spent is greater than 50% in coordination of care (as documented) at patient's floor/unit and/or counseling patient: Time with patient: less than 15 minutes
[2024-01-15] MEDS: ACETAMINOPHEN 325 MG TABLET 650 MG PO ×2 (05:53→08:57)
[2024-01-15 08:50] VITALS: BP 127/81; PULSE 79
[2024-01-15] MEDS: LABETALOL 100 MG TABLET 400 MG PO (08:50)
[2024-01-15] MEDS: IBUPROFEN 600 MG TABLET PO (08:52)
[2024-01-15] MEDS: PRENATAL VIT,CALC/IRON/FOLIC 1 TABLET 1 TAB PO (08:53)
[2024-01-15] MEDS: DOCUSATE 100 MG CAPSULE PO (08:53)
[2024-01-15] MEDS: FERROUS SULFATE 325 MG TABLET PO (08:53)
[2024-01-15] MEDS: NIFEdipine 30 MG TAB ER PO (08:54)
--- NOTE | 2024-01-15 09:12 | PM.OBDS.1 ---
Discharge Providers Provider Date of admission: 01/12/24 09:56 Discharge Date: 01/15/24 Primary care physician: Vera SHEN Provider Consults: 01/14/24 15:11 Consult to [employer]ter Routine Comment: Discharge provider: Anastasiia Roberto MD Summary Hospital Course Date Patient Seen: 01/15/24 Diagnoses: Intrauterine at 36w6d Preeclampsia with severe features GBS negative RH positive hemorrhage Hospital Course: The pt presented with PPROM from clinic. She received pitocin for induction. Due to severe range BPs, MgSO4 was initiated, which was continue for 24hrs . She had an epidural for pain control. The pt progressed to complete and had an of a viable baby girl. A small 1st degree perineal laceration was repaired for hemostasis. The pt had significant bleeding, controlled ultimately with TXA, rectal cytotec, usual pitocin, and bimanual massage/extraction of clots. , the pts blood pressures were stable for the first 24hrs, and then after MgSO4 was discontinued started to rise again. She was started on Nifedipine 30mg XR BID, with good control of her BPs. She will continue this along with her Labetalol at home. There were no additional complications. At the time of discharge she was voiding, ambulating, and passing flatus without difficulty. Her lochia was decreasing appropriately. Her pain was well controlled. She was with good latch. She will f/u in 6 weeks for check. She would like IUD for contraception. Peripartum Data Delivery Method: Natural Vaginal Laceration Description: Perineal - 1st Degree Episiotomy description: None Procedures: Spontaneous vaginal delivery complications: uterine atony 1: Gender: Female Disposition of : home Time Spent with Patient Time attestation: Total time spent providing and/or coordinating discharge services: Objective Labs 01/14/24 05:52 01/14/24 05:52 Labs: Laboratory Results - last 24 hr 01/14/24 05:52 Sodium 134 L Potassium 3.6 Chloride 109 H Carbon Dioxide 24 BUN 5 L Creatinine 0.51 L Estimated GFR > 60 BUN/Creatinine Ratio 9.8 Glucose 92 Calcium 8.2 L Magnesium 3.4 H Total Bilirubin 0.4 AST 36 ALT 11 Alkaline Phosphatase 67 Total Protein 5.8 L Albumin 2.9 L Globulin 2.9 Albumin/Globulin Ratio 1.0 Exam Vital Signs (past 8 hours): - 01/15/24 08:50 Pulse Rate 79 Blood Pressure 127/81 Narrative Exam Narrative: Gen: NAD, sitting comfortably in bed, appears well CV: RRR, no murmurs Resp: clear to auscultation bilaterally Abd: soft, appropriately tender, fundus firm and below the umbilicus, nondistended Ext: no edema Discharge Plan Discharge Plan Patient Disposition: Home Discharge orders & Medications Prescriptions: New nifedipine 30 mg Tablet Extended Release 24hr 30 mg PO BID Qty: 60 0RF acetaminophen 325 mg Tablet 650 mg PO Q6HR PRN (Reason: Pain, Mild (1-3)) Qty: 30 0RF ferrous sulfate 325 mg (65 mg iron) Tablet 325 mg PO DAILY Qty: 30 0RF docusate sodium 100 mg Capsule 100 mg PO DAILY Qty: 30 0RF ibuprofen 600 mg Tablet 600 mg PO Q6HR PRN (Reason: Pain, Mild (1-3)) Qty: 30 0RF Continued labetalol 200 mg tablet 400 mg PO BID Qty: 360 0RF prenat.vits,chelita,[id number] Tablet 1 tab PO DAILY Discontinued valacyclovir 1 gram tablet 1,000 mg PO BID Qty: 14 0RF aspirin 81 mg tablet,chewable 81 mg PO DAILY (DME) glucometer See Rx Instructions .Route .MEDSUPPLY Qty: 1 0RF Rx Instructions: As directed to test glucose fasting and 2 hrs postprandial (DME) test strips, lancets See Rx Instructions .Route .MEDSUPPLY Qty: 100 2RF Rx Instructions: As directed to test glucose fasting and 2 hrs post prandial 4 times daily acetaminophen [Tylenol] 325 mg capsule 650 mg PO Q6H PRN (Reason: Headache) Follow up/Referrals: ProviderVera [Primary Care Provider] - Anastasiia Roberto MD [Physician] - 02/24/24 2:00 pm Diet/Activity/Treatments Diet: Diet as Tolerated and Regular Activity: as tolerated Skin/Wound/Dressing Care Report to your healthcare provider any signs of infection, such as:: chills, fever and increased pain Visit Report/Discharge Packet Instructions: DI for Labor and Delivery, Vaginal Stand Alone Forms: Patient Portal/API, Stroke Signs & Symptoms Discharge Data Primary Care Provider: ProviderVera Discharges patient from system. Discharge Date/Time: 01/15/24 10:10
== END 2024-01-15 10:10 | disposition home or self-care (01) | DRG 806 ==
PROVIDERS: Admitting Provider Family Medicine; Referring Provider Family Medicine; Visit Provider Family Medicine
DX: O14.14 Severe pre-eclampsia complicating childbirth (principal); D62 Acute posthemorrhagic anemia; Z37.0 Single live birth; O98.32 Other infections with a predominantly sexual mode of transmission complicating childbirth; O60.14X0 Preterm labor third trimester with preterm delivery third trimester, not applicable or unspecified; O72.1 Other immediate postpartum hemorrhage; A60.9 Anogenital herpesviral infection, unspecified; O24.420 Gestational diabetes mellitus in childbirth, diet controlled; O70.0 First degree perineal laceration during delivery; Z3A.36 36 weeks gestation of pregnancy
CPT/HCPCS: 36415; 59050; 59400; 80053; 83735; 85025; 86850; 86900; 86901; 87081; 87653; G0379; J0290; J2590; J3475; S0191